=== PATIENT | male | born 1975 | race Caucasian/White ===

== ENCOUNTER 2017-12-23 07:00 | Inpatient (IN) | payer BC ==
[2017-12-23] MEDS ORDERED: hydrALAZINE 20 MG/ML VIAL. IVP (11:00)
[2017-12-23] MEDS ORDERED: DOCUSATE SODIUM 100 MG CAPSULE. PO (11:00)
[2017-12-23 11:46] LABS: ADD MAN DIFF? NO
[2017-12-23 11:49] LABS: BASO % 0 % (0-3); EOS % 0 % (0-3); HEMATOCRIT 43.7 % (39.0-53.0); HEMOGLOBIN 14.8 g/dL (13.0-17.5); LYMPH % 8 % (24-48); MEAN CORPUSCULAR HEMOGLOBIN 31 pg (25-35); MEAN CORPUSCULAR HGB CONC 34 g/dL (31-37); MEAN CORPUSCULAR VOLUME 91 fL (79-100); MONO # 0.8 x10^3/uL (0.0-1.1); MONO % 7 % (0-9); NEUT # 9.7 x10^3uL (1.8-7.7); NEUT % 84 % (31-73); PLATELET COUNT 341 x10^3/uL (140-400); RED BLOOD COUNT 4.78 x10^6/uL (4.30-5.70); RED CELL DISTRIBUTION WIDTH 13.9 % (11.5-14.5); WHITE BLOOD COUNT 11.5 x10^3/uL (4.0-11.0)
[2017-12-23 12:12] LABS: PROTHROMBIN TIME PATIENT 13.1 SEC (11.7-14.0)
[2017-12-23 12:27] LABS: ALBUMIN 3.4 g/dL (3.4-5.0); ALK PHOS 344 U/L (46-116); ALT (SGPT) 264 U/L (16-63); ANION GAP 7 (6-14); AST (SGOT) 146 U/L (15-37); BLOOD UREA NITROGEN 16 mg/dL (8-26); CALCIUM 8.5 mg/dL (8.5-10.1); CARBON DIOXIDE 29 mmol/L (21-32); CHLORIDE 105 mmol/L (98-107); CREATININE 1.1 mg/dL (0.7-1.3); DIRECT BILIRUBIN 1.5 mg/dL (0.0-0.2); GFR 73.4; GLUCOSE 131 mg/dL (70-99); POTASSIUM 3.9 mmol/L (3.5-5.1); SODIUM 141 mmol/L (136-145); TOTAL BILIRUBIN 1.9 mg/dL (0.2-1.0); TOTAL PROTEIN 7.7 g/dL (6.4-8.2)
[2017-12-23] MEDS: ONDANSETRON PF 4 MG/2 ML VIAL. IV (12:27)
[2017-12-23] MEDS: traMADol 50 MG TABLET PO (12:27)
[2017-12-23] MEDS ORDERED: PIP/TAZO PER PHARMACY MC (12:30)
[2017-12-23 13:07] LABS: LIPASE 10649 U/L (73-393)
[2017-12-23] MEDS: IV NORMAL SALINE 1000ML BAG 1,000 ML IV ×2 (14:02→22:26)
[2017-12-23] MEDS: PIPERACILLIN/TAZOBACTAM 4.5 GM in IV NORMAL SALINE 100ML 100 ML IV ×3 (14:11→22:26)
[2017-12-23] MEDS: PANTOPRAZOLE IV PUSH 40 MG VIAL. IVP (15:54)
[2017-12-23] MEDS: ENOXAPARIN 40 MG/0.4 ML SYRINGE. SQ (18:37)
[2017-12-23] MEDS ORDERED: FAMOTIDINE 20 MG/2 ML VIAL IVP (21:00)
[2017-12-23 22:01] LABS: BILIRUBIN,URINE SMALL (NEG); CLARITY,URINE CLEAR; COLOR,URINE AMBER; GLUCOSE,URINE NEGATIVE (NEG); NITRITE,URINE NEGATIVE (NEG); PH,URINE 5.5; PROTEIN,URINE NEGATIVE (NEG-TRACE)
[2017-12-23 22:11] LABS: BACTERIA,URINE FEW /HPF (0-FEW); RBC,URINE 0 /HPF (0-2); SQUAMOUS EPITHELIAL CELL,UR MOD /LPF; WBC,URINE 20-40 /HPF (0-4); YEAST,URINE PRESENT /HPF
[2017-12-23] MEDS: MORPHINE SULFATE 2 MG/ML DISP.SYRIN. IV (22:25)
[2017-12-24] MEDS: MORPHINE SULFATE 2 MG/ML DISP.SYRIN. IV ×5 (03:34→23:17)
[2017-12-24 05:11] LABS: ADD MAN DIFF? NO
[2017-12-24] MEDS: PIPERACILLIN/TAZOBACTAM 4.5 GM in IV NORMAL SALINE 100ML 100 ML IV ×4 (05:36→23:17)
[2017-12-24 05:41] LABS: BASO % 0 % (0-3); EOS % 0 % (0-3); HEMATOCRIT 39.3 % (39.0-53.0); HEMOGLOBIN 13.2 g/dL (13.0-17.5); LYMPH # 0.9 x10^3/uL (1.0-4.8); LYMPH % 8 % (24-48); MEAN CORPUSCULAR HEMOGLOBIN 31 pg (25-35); MEAN CORPUSCULAR HGB CONC 34 g/dL (31-37); MEAN CORPUSCULAR VOLUME 92 fL (79-100); MONO % 9 % (0-9); NEUT # 9.3 x10^3uL (1.8-7.7); NEUT % 83 % (31-73); PLATELET COUNT 275 x10^3/uL (140-400); RED BLOOD COUNT 4.28 x10^6/uL (4.30-5.70); RED CELL DISTRIBUTION WIDTH 14.2 % (11.5-14.5); WHITE BLOOD COUNT 11.2 x10^3/uL (4.0-11.0)
[2017-12-24 05:48] LABS: ANION GAP 6 (6-14); BLOOD UREA NITROGEN 13 mg/dL (8-26); CALCIUM 7.7 mg/dL (8.5-10.1); CARBON DIOXIDE 28 mmol/L (21-32); CHLORIDE 106 mmol/L (98-107); CREATININE 1.1 mg/dL (0.7-1.3); GFR 73.4; GLUCOSE 117 mg/dL (70-99); POTASSIUM 3.9 mmol/L (3.5-5.1); SODIUM 140 mmol/L (136-145)
[2017-12-24 06:18] LABS: ALBUMIN 2.9 g/dL (3.4-5.0); ALK PHOS 317 U/L (46-116); ALT (SGPT) 303 U/L (16-63); AST (SGOT) 164 U/L (15-37); DIRECT BILIRUBIN 1.2 mg/dL (0.0-0.2); LIPASE 3142 U/L (73-393); TOTAL BILIRUBIN 1.8 mg/dL (0.2-1.0); TOTAL PROTEIN 7.1 g/dL (6.4-8.2)
[2017-12-24] MEDS: PANTOPRAZOLE IV PUSH 40 MG VIAL. IVP (08:23)
[2017-12-24] MEDS: IV NORMAL SALINE 1000ML BAG 1,000 ML IV ×3 (10:28→21:05)
[2017-12-24] MEDS ORDERED: LACTULOSE 20 GM/30 ML SOLUTION. PO (12:15)
[2017-12-24] MEDS ORDERED: MAGNESIUM HYDROXIDE 2,400 MG/30 ML ORAL.SUSP. PO (12:15)
[2017-12-24] MEDS: ONDANSETRON PF 4 MG/2 ML VIAL. IV ×2 (16:28→23:07)
[2017-12-24] MEDS: ACETAMINOPHEN 325 MG TABLET. PO (16:29)
[2017-12-24] MEDS: ENOXAPARIN 40 MG/0.4 ML SYRINGE. SQ (16:30)
[2017-12-24] MEDS: traMADol 50 MG TABLET PO (23:17)
[2017-12-25] MEDS: IV NORMAL SALINE 1000ML BAG 1,000 ML IV ×4 (03:13→20:47)
[2017-12-25] MEDS: MORPHINE SULFATE 2 MG/ML DISP.SYRIN. IV ×4 (03:18→20:45)
[2017-12-25] MEDS: PIPERACILLIN/TAZOBACTAM 4.5 GM in IV NORMAL SALINE 100ML 100 ML IV ×3 (05:57→17:45)
[2017-12-25] MEDS: ONDANSETRON PF 4 MG/2 ML VIAL. IV ×4 (07:10→20:46)
[2017-12-25] MEDS: PANTOPRAZOLE IV PUSH 40 MG VIAL. IVP (07:45)
[2017-12-25 08:39] LABS: BASO % 0 % (0-3); EOS # 0.1 x10^3/uL (0.0-0.7); EOS % 0 % (0-3); HEMATOCRIT 40.3 % (39.0-53.0); HEMOGLOBIN 13.5 g/dL (13.0-17.5); LYMPH # 1.1 x10^3/uL (1.0-4.8); LYMPH % 6 % (24-48); MEAN CORPUSCULAR HEMOGLOBIN 31 pg (25-35); MEAN CORPUSCULAR HGB CONC 34 g/dL (31-37); MEAN CORPUSCULAR VOLUME 92 fL (79-100); MONO # 1.1 x10^3/uL (0.0-1.1); MONO % 7 % (0-9); NEUT # 15.2 x10^3uL (1.8-7.7); NEUT % 87 % (31-73); PLATELET COUNT 313 x10^3/uL (140-400); RED BLOOD COUNT 4.38 x10^6/uL (4.30-5.70); RED CELL DISTRIBUTION WIDTH 13.7 % (11.5-14.5); WHITE BLOOD COUNT 17.5 x10^3/uL (4.0-11.0)
[2017-12-25 08:49] LABS: ADD MAN DIFF? YES
[2017-12-25 09:08] LABS: ALBUMIN 2.7 g/dL (3.4-5.0); ALK PHOS 243 U/L (46-116); ALT (SGPT) 184 U/L (16-63); ANION GAP 11 (6-14); AST (SGOT) 47 U/L (15-37); BLOOD UREA NITROGEN 12 mg/dL (8-26); CALCIUM 7.9 mg/dL (8.5-10.1); CARBON DIOXIDE 23 mmol/L (21-32); CHLORIDE 105 mmol/L (98-107); DIRECT BILIRUBIN 0.5 mg/dL (0.0-0.2); GFR 81.9; GLUCOSE 136 mg/dL (70-99); LIPASE 212 U/L (73-393); POTASSIUM 3.7 mmol/L (3.5-5.1); SODIUM 139 mmol/L (136-145); TOTAL PROTEIN 7.3 g/dL (6.4-8.2)
[2017-12-25 09:33] LABS: % BANDS 2 % (0-9); % LYMPHS 8 % (24-48); % MONOS 4 % (0-10); % SEGS 86 % (35-66); PLT ESTIMATE ADEQUATE (ADEQUATE)
[2017-12-25] MEDS: traMADol 50 MG TABLET PO (10:09)
[2017-12-25] MEDS: BISACODYL 10 MG SUPP.RECT. PR (12:03)
[2017-12-25] MEDS: ENOXAPARIN 40 MG/0.4 ML SYRINGE. SQ (16:34)
[2017-12-26] MEDS: PIPERACILLIN/TAZOBACTAM 4.5 GM in IV NORMAL SALINE 100ML 100 ML IV ×5 (00:04→22:49)
[2017-12-26] MEDS: IV NORMAL SALINE 1000ML BAG 1,000 ML IV ×4 (00:04→22:49)
[2017-12-26] MEDS: MORPHINE SULFATE 2 MG/ML DISP.SYRIN. IV ×6 (00:07→21:33)
[2017-12-26] MEDS: ENOXAPARIN 40 MG/0.4 ML SYRINGE. SQ ×3 (00:56→21:29)
[2017-12-26] MEDS: PANTOPRAZOLE IV PUSH 40 MG VIAL. IVP (06:22)
[2017-12-26] MEDS: ONDANSETRON PF 4 MG/2 ML VIAL. IV ×2 (06:22→13:52)
[2017-12-26] MEDS: IOHEXOL 300 MG/ML 100ML VIAL. IV (07:45)
[2017-12-26] MEDS ORDERED: CONTRAST GIVEN. MC (07:45)
[2017-12-26 10:38] LABS: ADD MAN DIFF? NO
[2017-12-26 10:50] LABS: BASO % 0 % (0-3); EOS # 0.1 x10^3/uL (0.0-0.7); EOS % 1 % (0-3); HEMATOCRIT 39.1 % (39.0-53.0); HEMOGLOBIN 13.1 g/dL (13.0-17.5); LYMPH # 0.6 x10^3/uL (1.0-4.8); LYMPH % 4 % (24-48); MEAN CORPUSCULAR HEMOGLOBIN 31 pg (25-35); MEAN CORPUSCULAR HGB CONC 34 g/dL (31-37); MEAN CORPUSCULAR VOLUME 92 fL (79-100); MONO # 0.9 x10^3/uL (0.0-1.1); MONO % 6 % (0-9); NEUT # 13.7 x10^3uL (1.8-7.7); NEUT % 89 % (31-73); PLATELET COUNT 347 x10^3/uL (140-400); RED BLOOD COUNT 4.25 x10^6/uL (4.30-5.70); RED CELL DISTRIBUTION WIDTH 13.6 % (11.5-14.5); WHITE BLOOD COUNT 15.3 x10^3/uL (4.0-11.0)
[2017-12-26 12:40] LABS: LACTIC ACID 1.3 mmol/L (0.4-2.0)
[2017-12-26] MEDS: BISACODYL 10 MG SUPP.RECT. PR (13:55)
[2017-12-26] MEDS: SODIUM PHOSPHATES 19/7GM 133 ML ENEMA. PR (17:30)
[2017-12-26] MEDS ORDERED: METOCLOPRAMIDE HCL 10 MG/2 ML VIAL. IV (17:30)
[2017-12-26] MEDS: PROCHLORPERAZINE 10 MG/2 ML VIAL. IV (18:04)
[2017-12-27] MEDS: MORPHINE SULFATE 2 MG/ML DISP.SYRIN. IV ×4 (01:33→21:47)
[2017-12-27] MEDS: PROCHLORPERAZINE 10 MG/2 ML VIAL. IV ×2 (01:34→16:19)
[2017-12-27] MEDS: PIPERACILLIN/TAZOBACTAM 4.5 GM in IV NORMAL SALINE 100ML 100 ML IV ×4 (05:39→23:15)
[2017-12-27] MEDS: PANTOPRAZOLE IV PUSH 40 MG VIAL. IVP (05:40)
[2017-12-27] MEDS: IV NORMAL SALINE 1000ML BAG 1,000 ML IV (05:40)
[2017-12-27 08:07] LABS: ADD MAN DIFF? NO
[2017-12-27 08:32] LABS: ALBUMIN 2.2 g/dL (3.4-5.0); ALBUMIN/GLOBULIN RATIO 0.5 (1.0-1.7); ALK PHOS 162 U/L (46-116); ALT (SGPT) 82 U/L (16-63); ANION GAP 12 (6-14); AST (SGOT) 23 U/L (15-37); BLOOD UREA NITROGEN 9 mg/dL (8-26); BUN/CREATININE RATIO 10 (6-20); CALCIUM 7.9 mg/dL (8.5-10.1); CARBON DIOXIDE 25 mmol/L (21-32); CHLORIDE 105 mmol/L (98-107); CREATININE 0.9 mg/dL (0.7-1.3); GFR 92.5; GLUCOSE 104 mg/dL (70-99); LIPASE 86 U/L (73-393); POTASSIUM 3.1 mmol/L (3.5-5.1); SODIUM 142 mmol/L (136-145); TOTAL BILIRUBIN 0.7 mg/dL (0.2-1.0); TOTAL PROTEIN 6.5 g/dL (6.4-8.2)
[2017-12-27 08:38] LABS: BASO % 0 % (0-3); EOS # 0.1 x10^3/uL (0.0-0.7); EOS % 1 % (0-3); HEMATOCRIT 37.3 % (39.0-53.0); HEMOGLOBIN 12.4 g/dL (13.0-17.5); LYMPH # 0.7 x10^3/uL (1.0-4.8); LYMPH % 5 % (24-48); MEAN CORPUSCULAR HEMOGLOBIN 30 pg (25-35); MEAN CORPUSCULAR HGB CONC 33 g/dL (31-37); MEAN CORPUSCULAR VOLUME 92 fL (79-100); MONO % 7 % (0-9); NEUT % 87 % (31-73); PLATELET COUNT 321 x10^3/uL (140-400); RED BLOOD COUNT 4.07 x10^6/uL (4.30-5.70); RED CELL DISTRIBUTION WIDTH 13.6 % (11.5-14.5); WHITE BLOOD COUNT 13.8 x10^3/uL (4.0-11.0)
[2017-12-27] MEDS: ENOXAPARIN 40 MG/0.4 ML SYRINGE. SQ ×2 (09:18→19:47)
[2017-12-27] MEDS: AMINO AC 3%/ELECTROLYTE/GLYCER 1,000 ML IV (12:41)
[2017-12-27] MEDS: POTASSIUM CHLORIDE 10MEQ 100 ML IV ×4 (12:43→16:20)
[2017-12-28] MEDS: MORPHINE SULFATE 2 MG/ML DISP.SYRIN. IV ×5 (00:05→23:05)
[2017-12-28] MEDS: PROCHLORPERAZINE 10 MG/2 ML VIAL. IV ×2 (01:16→21:02)
[2017-12-28 05:12] LABS: ADD MAN DIFF? NO
[2017-12-28] MEDS: PIPERACILLIN/TAZOBACTAM 4.5 GM in IV NORMAL SALINE 100ML 100 ML IV ×4 (05:19→23:05)
[2017-12-28 05:21] LABS: BASO % 0 % (0-3); EOS # 0.1 x10^3/uL (0.0-0.7); EOS % 1 % (0-3); HEMATOCRIT 35.9 % (39.0-53.0); HEMOGLOBIN 12.3 g/dL (13.0-17.5); LYMPH # 0.9 x10^3/uL (1.0-4.8); LYMPH % 6 % (24-48); MEAN CORPUSCULAR HEMOGLOBIN 31 pg (25-35); MEAN CORPUSCULAR HGB CONC 34 g/dL (31-37); MEAN CORPUSCULAR VOLUME 90 fL (79-100); MONO # 1.1 x10^3/uL (0.0-1.1); MONO % 7 % (0-9); NEUT # 12.9 x10^3uL (1.8-7.7); NEUT % 86 % (31-73); PLATELET COUNT 306 x10^3/uL (140-400); RED BLOOD COUNT 3.99 x10^6/uL (4.30-5.70); RED CELL DISTRIBUTION WIDTH 13.3 % (11.5-14.5)
[2017-12-28 05:43] LABS: ALBUMIN 2.1 g/dL (3.4-5.0); ALBUMIN/GLOBULIN RATIO 0.5 (1.0-1.7); ALK PHOS 151 U/L (46-116); ALT (SGPT) 63 U/L (16-63); ANION GAP 9 (6-14); AST (SGOT) 19 U/L (15-37); BLOOD UREA NITROGEN 9 mg/dL (8-26); BUN/CREATININE RATIO 11 (6-20); CALCIUM 8.1 mg/dL (8.5-10.1); CARBON DIOXIDE 26 mmol/L (21-32); CHLORIDE 105 mmol/L (98-107); CREATININE 0.8 mg/dL (0.7-1.3); GLUCOSE 136 mg/dL (70-99); POTASSIUM 3.4 mmol/L (3.5-5.1); SODIUM 140 mmol/L (136-145); TOTAL BILIRUBIN 0.5 mg/dL (0.2-1.0); TOTAL PROTEIN 6.5 g/dL (6.4-8.2)
[2017-12-28] MEDS: ENOXAPARIN 40 MG/0.4 ML SYRINGE. SQ ×2 (09:37→20:59)
[2017-12-28] MEDS: PANTOPRAZOLE IV PUSH 40 MG VIAL. IVP (09:38)
[2017-12-28] MEDS: AMINO AC 3%/ELECTROLYTE/GLYCER 1,000 ML IV ×2 (09:38→20:59)
[2017-12-29] MEDS: MORPHINE SULFATE 2 MG/ML DISP.SYRIN. IV ×5 (02:16→20:50)
[2017-12-29 04:43] LABS: ADD MAN DIFF? NO
[2017-12-29 04:59] LABS: BASO # 0.1 x10^3/uL (0.0-0.2); BASO % 0 % (0-3); EOS # 0.1 x10^3/uL (0.0-0.7); EOS % 1 % (0-3); HEMATOCRIT 36.8 % (39.0-53.0); HEMOGLOBIN 12.8 g/dL (13.0-17.5); LYMPH # 1.1 x10^3/uL (1.0-4.8); LYMPH % 8 % (24-48); MEAN CORPUSCULAR HEMOGLOBIN 31 pg (25-35); MEAN CORPUSCULAR HGB CONC 35 g/dL (31-37); MEAN CORPUSCULAR VOLUME 90 fL (79-100); MONO # 1.2 x10^3/uL (0.0-1.1); MONO % 8 % (0-9); NEUT # 11.7 x10^3uL (1.8-7.7); NEUT % 83 % (31-73); PLATELET COUNT 304 x10^3/uL (140-400); RED CELL DISTRIBUTION WIDTH 13.1 % (11.5-14.5); WHITE BLOOD COUNT 14.2 x10^3/uL (4.0-11.0)
[2017-12-29 05:17] LABS: ALBUMIN 2.1 g/dL (3.4-5.0); ALBUMIN/GLOBULIN RATIO 0.5 (1.0-1.7); ALK PHOS 167 U/L (46-116); ALT (SGPT) 53 U/L (16-63); ANION GAP 10 (6-14); AST (SGOT) 23 U/L (15-37); BLOOD UREA NITROGEN 7 mg/dL (8-26); BUN/CREATININE RATIO 9 (6-20); CALCIUM 8.2 mg/dL (8.5-10.1); CARBON DIOXIDE 26 mmol/L (21-32); CHLORIDE 102 mmol/L (98-107); CREATININE 0.8 mg/dL (0.7-1.3); GLUCOSE 123 mg/dL (70-99); LIPASE 140 U/L (73-393); POTASSIUM 3.2 mmol/L (3.5-5.1); SODIUM 138 mmol/L (136-145); TOTAL BILIRUBIN 0.5 mg/dL (0.2-1.0); TOTAL PROTEIN 6.3 g/dL (6.4-8.2)
[2017-12-29] MEDS: PIPERACILLIN/TAZOBACTAM 4.5 GM in IV NORMAL SALINE 100ML 100 ML IV ×3 (05:39→18:40)
[2017-12-29] MEDS: PANTOPRAZOLE IV PUSH 40 MG VIAL. IVP (05:39)
[2017-12-29] MEDS ORDERED: LIDOCAINE WITH 8.4% SOD BICARB 3 ML DISP.SYRIN. (08:56)
[2017-12-29] MEDS: ENOXAPARIN 40 MG/0.4 ML SYRINGE. SQ ×2 (09:00→20:51)
[2017-12-29] MEDS: LIDOCAINE WITH 8.4% SOD BICARB 3 ML DISP.SYRIN. INJ (09:24)
[2017-12-29] MEDS: AMINO AC 3%/ELECTROLYTE/GLYCER 1,000 ML IV (13:14)
[2017-12-30] MEDS: MORPHINE SULFATE 2 MG/ML DISP.SYRIN. IV ×5 (00:16→20:48)
[2017-12-30] MEDS: PIPERACILLIN/TAZOBACTAM 4.5 GM in IV NORMAL SALINE 100ML 100 ML IV ×4 (00:16→19:40)
[2017-12-30] MEDS: AMINO AC 3%/ELECTROLYTE/GLYCER 1,000 ML IV (05:48)
[2017-12-30 06:31] LABS: ALBUMIN/GLOBULIN RATIO 0.5 (1.0-1.7); ALK PHOS 119 U/L (46-116); ALT (SGPT) 46 U/L (16-63); ANION GAP 8 (6-14); AST (SGOT) 26 U/L (15-37); BLOOD UREA NITROGEN 10 mg/dL (8-26); BUN/CREATININE RATIO 14 (6-20); CALCIUM 8.2 mg/dL (8.5-10.1); CARBON DIOXIDE 27 mmol/L (21-32); CHLORIDE 102 mmol/L (98-107); CREATININE 0.7 mg/dL (0.7-1.3); GFR 123.7; GLUCOSE 123 mg/dL (70-99); LIPASE 169 U/L (73-393); POTASSIUM 3.2 mmol/L (3.5-5.1); SODIUM 137 mmol/L (136-145); TOTAL BILIRUBIN 0.4 mg/dL (0.2-1.0)
[2017-12-30] MEDS: PANTOPRAZOLE IV PUSH 40 MG VIAL. IVP (08:13)
[2017-12-30] MEDS: ENOXAPARIN 40 MG/0.4 ML SYRINGE. SQ ×2 (08:14→20:24)
[2017-12-30 08:37] LABS: ADD MAN DIFF? NO; BASO % 0 % (0-3); EOS # 0.2 x10^3/uL (0.0-0.7); EOS % 2 % (0-3); HEMATOCRIT 36.1 % (39.0-53.0); HEMOGLOBIN 12.5 g/dL (13.0-17.5); LYMPH # 1.1 x10^3/uL (1.0-4.8); LYMPH % 9 % (24-48); MEAN CORPUSCULAR HEMOGLOBIN 31 pg (25-35); MEAN CORPUSCULAR HGB CONC 35 g/dL (31-37); MEAN CORPUSCULAR VOLUME 89 fL (79-100); MONO # 1.1 x10^3/uL (0.0-1.1); MONO % 10 % (0-9); NEUT # 9.4 x10^3uL (1.8-7.7); NEUT % 79 % (31-73); PLATELET COUNT 246 x10^3/uL (140-400); RED BLOOD COUNT 4.07 x10^6/uL (4.30-5.70); RED CELL DISTRIBUTION WIDTH 13.4 % (11.5-14.5); WHITE BLOOD COUNT 11.8 x10^3/uL (4.0-11.0)
[2017-12-31] MEDS: AMINO AC 3%/ELECTROLYTE/GLYCER 1,000 ML IV ×2 (00:05→17:59)
[2017-12-31] MEDS: PIPERACILLIN/TAZOBACTAM 4.5 GM in IV NORMAL SALINE 100ML 100 ML IV ×4 (00:08→17:58)
[2017-12-31] MEDS: MORPHINE SULFATE 2 MG/ML DISP.SYRIN. IV ×4 (00:18→22:43)
[2017-12-31 05:59] LABS: ADD MAN DIFF? NO
[2017-12-31 06:02] LABS: BASO # 0.1 x10^3/uL (0.0-0.2); BASO % 1 % (0-3); EOS # 0.2 x10^3/uL (0.0-0.7); EOS % 2 % (0-3); HEMATOCRIT 36.3 % (39.0-53.0); HEMOGLOBIN 12.4 g/dL (13.0-17.5); LYMPH # 1.4 x10^3/uL (1.0-4.8); LYMPH % 13 % (24-48); MEAN CORPUSCULAR HEMOGLOBIN 30 pg (25-35); MEAN CORPUSCULAR HGB CONC 34 g/dL (31-37); MEAN CORPUSCULAR VOLUME 89 fL (79-100); MONO # 1.2 x10^3/uL (0.0-1.1); MONO % 12 % (0-9); NEUT # 7.3 x10^3uL (1.8-7.7); NEUT % 72 % (31-73); PLATELET COUNT 219 x10^3/uL (140-400); RED BLOOD COUNT 4.08 x10^6/uL (4.30-5.70); RED CELL DISTRIBUTION WIDTH 13.3 % (11.5-14.5); WHITE BLOOD COUNT 10.1 x10^3/uL (4.0-11.0)
[2017-12-31 06:21] LABS: ALBUMIN 2.1 g/dL (3.4-5.0); ALBUMIN/GLOBULIN RATIO 0.5 (1.0-1.7); ALK PHOS 112 U/L (46-116); ALT (SGPT) 45 U/L (16-63); ANION GAP 6 (6-14); AST (SGOT) 32 U/L (15-37); BLOOD UREA NITROGEN 8 mg/dL (8-26); BUN/CREATININE RATIO 10 (6-20); CALCIUM 7.9 mg/dL (8.5-10.1); CARBON DIOXIDE 29 mmol/L (21-32); CHLORIDE 104 mmol/L (98-107); CREATININE 0.8 mg/dL (0.7-1.3); GLUCOSE 123 mg/dL (70-99); LIPASE 218 U/L (73-393); POTASSIUM 3.2 mmol/L (3.5-5.1); SODIUM 139 mmol/L (136-145); TOTAL BILIRUBIN 0.3 mg/dL (0.2-1.0); TOTAL PROTEIN 6.2 g/dL (6.4-8.2)
[2017-12-31] MEDS: ENOXAPARIN 40 MG/0.4 ML SYRINGE. SQ (09:25)
[2017-12-31] MEDS: PANTOPRAZOLE IV PUSH 40 MG VIAL. IVP (09:25)
[2018-01-01] MEDS: PIPERACILLIN/TAZOBACTAM 4.5 GM in IV NORMAL SALINE 100ML 100 ML IV ×4 (00:39→21:32)
[2018-01-01 06:48] LABS: ADD MAN DIFF? NO
[2018-01-01 07:15] LABS: ALBUMIN 2.2 g/dL (3.4-5.0); ALBUMIN/GLOBULIN RATIO 0.5 (1.0-1.7); ALK PHOS 97 U/L (46-116); ALT (SGPT) 51 U/L (16-63); ANION GAP 7 (6-14); AST (SGOT) 33 U/L (15-37); BLOOD UREA NITROGEN 6 mg/dL (8-26); BUN/CREATININE RATIO 8 (6-20); CALCIUM 7.8 mg/dL (8.5-10.1); CARBON DIOXIDE 28 mmol/L (21-32); CHLORIDE 105 mmol/L (98-107); CREATININE 0.8 mg/dL (0.7-1.3); GLUCOSE 138 mg/dL (70-99); LIPASE 231 U/L (73-393); POTASSIUM 3.2 mmol/L (3.5-5.1); SODIUM 140 mmol/L (136-145); TOTAL BILIRUBIN 0.3 mg/dL (0.2-1.0); TOTAL PROTEIN 6.4 g/dL (6.4-8.2)
[2018-01-01 07:41] LABS: BASO # 0.1 x10^3/uL (0.0-0.2); BASO % 1 % (0-3); EOS # 0.3 x10^3/uL (0.0-0.7); EOS % 3 % (0-3); HEMATOCRIT 36.3 % (39.0-53.0); HEMOGLOBIN 12.5 g/dL (13.0-17.5); LYMPH % 11 % (24-48); MEAN CORPUSCULAR HEMOGLOBIN 31 pg (25-35); MEAN CORPUSCULAR HGB CONC 34 g/dL (31-37); MEAN CORPUSCULAR VOLUME 90 fL (79-100); MONO # 1.2 x10^3/uL (0.0-1.1); MONO % 13 % (0-9); NEUT # 6.7 x10^3uL (1.8-7.7); NEUT % 72 % (31-73); PLATELET COUNT 230 x10^3/uL (140-400); RED BLOOD COUNT 4.05 x10^6/uL (4.30-5.70); RED CELL DISTRIBUTION WIDTH 13.4 % (11.5-14.5); WHITE BLOOD COUNT 9.2 x10^3/uL (4.0-11.0)
[2018-01-01] MEDS: PANTOPRAZOLE IV PUSH 40 MG VIAL. IVP (07:45)
[2018-01-01] MEDS: IOHEXOL 300 MG/ML 100ML VIAL. IV (11:30)
[2018-01-01] MEDS ORDERED: CONTRAST GIVEN. MC (11:45)
[2018-01-01] MEDS: POTASSIUM CHLORIDE 20MEQ 50 ML IV (12:01)
[2018-01-01] MEDS: ENOXAPARIN 40 MG/0.4 ML SYRINGE. SQ (12:01)
[2018-01-01] MEDS: AMINO AC 3%/ELECTROLYTE/GLYCER 1,000 ML IV (19:14)
[2018-01-02] MEDS: ALTEPLASE 2 MG VIAL INT CAT (00:34)
[2018-01-02] MEDS: PIPERACILLIN/TAZOBACTAM 4.5 GM in IV NORMAL SALINE 100ML 100 ML IV ×4 (01:28→20:08)
[2018-01-02] MEDS: AMINO AC 3%/ELECTROLYTE/GLYCER 1,000 ML IV ×2 (01:30→16:01)
[2018-01-02] MEDS: MORPHINE SULFATE 2 MG/ML DISP.SYRIN. IV ×2 (02:48→16:34)
[2018-01-02 05:28] LABS: ADD MAN DIFF? NO
[2018-01-02 05:49] LABS: ALBUMIN 2.1 g/dL (3.4-5.0); ALBUMIN/GLOBULIN RATIO 0.5 (1.0-1.7); ALK PHOS 95 U/L (46-116); ALT (SGPT) 49 U/L (16-63); ANION GAP 6 (6-14); AST (SGOT) 32 U/L (15-37); BLOOD UREA NITROGEN 7 mg/dL (8-26); BUN/CREATININE RATIO 9 (6-20); CALCIUM 8.1 mg/dL (8.5-10.1); CARBON DIOXIDE 28 mmol/L (21-32); CHLORIDE 106 mmol/L (98-107); CREATININE 0.8 mg/dL (0.7-1.3); GLUCOSE 121 mg/dL (70-99); LIPASE 268 U/L (73-393); POTASSIUM 3.3 mmol/L (3.5-5.1); SODIUM 140 mmol/L (136-145); TOTAL BILIRUBIN 0.3 mg/dL (0.2-1.0); TOTAL PROTEIN 6.2 g/dL (6.4-8.2)
[2018-01-02 06:06] LABS: BASO % 1 % (0-3); EOS # 0.2 x10^3/uL (0.0-0.7); EOS % 3 % (0-3); HEMATOCRIT 35.5 % (39.0-53.0); HEMOGLOBIN 12.2 g/dL (13.0-17.5); LYMPH # 1.1 x10^3/uL (1.0-4.8); LYMPH % 13 % (24-48); MEAN CORPUSCULAR HEMOGLOBIN 31 pg (25-35); MEAN CORPUSCULAR HGB CONC 35 g/dL (31-37); MEAN CORPUSCULAR VOLUME 89 fL (79-100); MONO # 1.1 x10^3/uL (0.0-1.1); MONO % 14 % (0-9); NEUT # 5.8 x10^3uL (1.8-7.7); NEUT % 70 % (31-73); PLATELET COUNT 203 x10^3/uL (140-400); RED BLOOD COUNT 3.99 x10^6/uL (4.30-5.70); RED CELL DISTRIBUTION WIDTH 13.2 % (11.5-14.5); WHITE BLOOD COUNT 8.3 x10^3/uL (4.0-11.0)
[2018-01-02] MEDS: ENOXAPARIN 40 MG/0.4 ML SYRINGE. SQ (09:00)
[2018-01-02] MEDS: PANTOPRAZOLE IV PUSH 40 MG VIAL. IVP (11:03)
[2018-01-02] MEDS: POTASSIUM CHLORIDE 20MEQ 50 ML IV (11:03)
[2018-01-02 11:07] LABS: MAGNESIUM 2.1 mg/dL (1.8-2.4)
[2018-01-03] MEDS: PIPERACILLIN/TAZOBACTAM 4.5 GM in IV NORMAL SALINE 100ML 100 ML IV ×4 (00:05→18:11)
[2018-01-03] MEDS: AMINO AC 3%/ELECTROLYTE/GLYCER 1,000 ML IV ×2 (05:36→17:01)
[2018-01-03 06:03] LABS: ADD MAN DIFF? NO
[2018-01-03 06:26] LABS: BASO % 1 % (0-3); EOS # 0.3 x10^3/uL (0.0-0.7); EOS % 4 % (0-3); HEMATOCRIT 36.9 % (39.0-53.0); HEMOGLOBIN 12.6 g/dL (13.0-17.5); LYMPH # 1.2 x10^3/uL (1.0-4.8); LYMPH % 15 % (24-48); MEAN CORPUSCULAR HEMOGLOBIN 31 pg (25-35); MEAN CORPUSCULAR HGB CONC 34 g/dL (31-37); MEAN CORPUSCULAR VOLUME 90 fL (79-100); MONO # 1.2 x10^3/uL (0.0-1.1); MONO % 15 % (0-9); NEUT # 5.5 x10^3uL (1.8-7.7); NEUT % 67 % (31-73); PLATELET COUNT 200 x10^3/uL (140-400); RED BLOOD COUNT 4.12 x10^6/uL (4.30-5.70); RED CELL DISTRIBUTION WIDTH 13.1 % (11.5-14.5); WHITE BLOOD COUNT 8.3 x10^3/uL (4.0-11.0)
[2018-01-03 06:28] LABS: ALBUMIN 2.3 g/dL (3.4-5.0); ALBUMIN/GLOBULIN RATIO 0.5 (1.0-1.7); ALK PHOS 91 U/L (46-116); ALT (SGPT) 45 U/L (16-63); ANION GAP 8 (6-14); AST (SGOT) 25 U/L (15-37); BLOOD UREA NITROGEN 7 mg/dL (8-26); BUN/CREATININE RATIO 9 (6-20); CALCIUM 7.9 mg/dL (8.5-10.1); CARBON DIOXIDE 27 mmol/L (21-32); CHLORIDE 106 mmol/L (98-107); CREATININE 0.8 mg/dL (0.7-1.3); GLUCOSE 129 mg/dL (70-99); POTASSIUM 3.8 mmol/L (3.5-5.1); SODIUM 141 mmol/L (136-145); TOTAL BILIRUBIN 0.3 mg/dL (0.2-1.0); TOTAL PROTEIN 6.5 g/dL (6.4-8.2)
[2018-01-03] MEDS ORDERED: fentaNYL PF VIAL 100 MCG/2 ML VIAL IV (07:00)
[2018-01-03] MEDS ORDERED: LIDOCAINE 2% PF Vial for OR 5 ML VIAL. (07:00)
[2018-01-03] MEDS ORDERED: MIDAZOLAM HCL/PF 2 MG/2 ML VIAL. (07:00)
[2018-01-03] MEDS: IV RINGERS,LACTATED 1000ML 1,000 ML IV (07:00)
[2018-01-03] MEDS ORDERED: MORPHINE SULFATE 2 MG/ML DISP.SYRIN. IV (07:00)
[2018-01-03] MEDS ORDERED: ONDANSETRON PF 4 MG/2 ML VIAL. IV (07:00)
[2018-01-03] MEDS ORDERED: LIDOCAINE 1% PF 2 ML VIAL. ID (07:00)
[2018-01-03] MEDS ORDERED: fentaNYL PF VIAL 250 MCG/5 ML VIAL (07:00)
[2018-01-03] MEDS ORDERED: PROCHLORPERAZINE 10 MG/2 ML VIAL. IV (07:00)
[2018-01-03] MEDS ORDERED: PROPOFOL 20 ML IV (07:00)
[2018-01-03] MEDS ORDERED: ROCURONIUM 50 MG/5 ML VIAL. (07:00)
[2018-01-03] MEDS: PANTOPRAZOLE IV PUSH 40 MG VIAL. IVP (07:30)
[2018-01-03] MEDS: IOHEXOL 300 MG/ML 100ML VIAL. (07:58)
[2018-01-03] MEDS: BUPIVACAINE-EPI 0.5%-1:200000 50 ML VIAL. (07:58)
[2018-01-03] MEDS ORDERED: ONDANSETRON PF 4 MG/2 ML VIAL. (08:03)
[2018-01-03] MEDS ORDERED: DEXAMETHASONE SOD PHOS 20 MG/5 ML VIAL. (08:03)
[2018-01-03] MEDS ORDERED: NEOSTIGMINE METHYLSULFATE 5 MG/5 ML SYRINGE. (08:37)
[2018-01-03] MEDS ORDERED: GLYCOPYRROLATE 1 MG/5 ML VIAL. (08:38)
[2018-01-03] MEDS: SURGICEL HEMOSTAT 4X8 EACH. (08:41)
[2018-01-03] MEDS: ENOXAPARIN 40 MG/0.4 ML SYRINGE. SQ (09:00)
[2018-01-03] MEDS: fentaNYL PF VIAL 100 MCG/2 ML VIAL IV (09:53)
[2018-01-03] MEDS: oxyCODONE/APAP 5/325 1 TAB TABLET PO ×2 (11:43→21:32)
[2018-01-03] MEDS: MORPHINE SULFATE 2 MG/ML DISP.SYRIN. IV (15:38)
[2018-01-04] MEDS: PIPERACILLIN/TAZOBACTAM 4.5 GM in IV NORMAL SALINE 100ML 100 ML IV ×2 (00:18→06:03)
[2018-01-04] MEDS: PANTOPRAZOLE IV PUSH 40 MG VIAL. IVP (06:04)
[2018-01-04] MEDS: oxyCODONE/APAP 5/325 1 TAB TABLET PO ×2 (06:04→12:57)
[2018-01-04] MEDS: ALTEPLASE 2 MG VIAL INT CAT (07:17)
[2018-01-04 09:36] LABS: ADD MAN DIFF? NO
[2018-01-04 09:40] LABS: BASO # 0.1 x10^3/uL (0.0-0.2); BASO % 1 % (0-3); EOS # 0.2 x10^3/uL (0.0-0.7); EOS % 2 % (0-3); HEMATOCRIT 36.3 % (39.0-53.0); HEMOGLOBIN 12.3 g/dL (13.0-17.5); LYMPH # 1.9 x10^3/uL (1.0-4.8); LYMPH % 20 % (24-48); MEAN CORPUSCULAR HEMOGLOBIN 31 pg (25-35); MEAN CORPUSCULAR HGB CONC 34 g/dL (31-37); MEAN CORPUSCULAR VOLUME 91 fL (79-100); MONO # 0.9 x10^3/uL (0.0-1.1); MONO % 10 % (0-9); NEUT # 6.2 x10^3uL (1.8-7.7); NEUT % 67 % (31-73); PLATELET COUNT 228 x10^3/uL (140-400); RED BLOOD COUNT 3.97 x10^6/uL (4.30-5.70); RED CELL DISTRIBUTION WIDTH 13.3 % (11.5-14.5); WHITE BLOOD COUNT 9.2 x10^3/uL (4.0-11.0)
[2018-01-04 10:12] LABS: ALBUMIN 2.4 g/dL (3.4-5.0); ALBUMIN/GLOBULIN RATIO 0.6 (1.0-1.7); ALK PHOS 93 U/L (46-116); ALT (SGPT) 57 U/L (16-63); ANION GAP 8 (6-14); AST (SGOT) 39 U/L (15-37); BLOOD UREA NITROGEN 8 mg/dL (8-26); BUN/CREATININE RATIO 9 (6-20); CALCIUM 7.9 mg/dL (8.5-10.1); CARBON DIOXIDE 26 mmol/L (21-32); CHLORIDE 106 mmol/L (98-107); CREATININE 0.9 mg/dL (0.7-1.3); GFR 92.5; GLUCOSE 143 mg/dL (70-99); POTASSIUM 3.5 mmol/L (3.5-5.1); SODIUM 140 mmol/L (136-145); TOTAL BILIRUBIN 0.3 mg/dL (0.2-1.0); TOTAL PROTEIN 6.1 g/dL (6.4-8.2)
[2018-01-04] MEDS ORDERED: LACTOBACILLUS RHAMNOSUS GG 1 CAPSULE. PO (21:00)
[2018-01-05] MEDS ORDERED: PANTOPRAZOLE 40 MG TABLET.DR. PO (07:30)
== END 2018-01-04 13:25 | disposition home or self-care (01) | DRG 987 ==
LOC: 6 SOUTH 12-30 14:45 → 4 NORTH 07:00
PROC: 0FT44ZZ Resection of Gallbladder, Percutaneous Endoscopic Approach (ICD-10-PCS; principal; 2018-01-03 07:30)
PROC: 02HV33Z Insertion of Infusion Device into Superior Vena Cava, Percutaneous Approach (ICD-10-PCS; 2018-01-03 07:30)
PROC: B548ZZA Ultrasonography of Superior Vena Cava, Guidance (ICD-10-PCS; 2018-01-03 07:30)
PROC: BF131ZZ Fluoroscopy of Gallbladder and Bile Ducts using Low Osmolar Contrast (ICD-10-PCS; 2018-01-03 07:30)
DX: T82.515A Breakdown (mechanical) of umbrella device, initial encounter (principal); K85.10 Biliary acute pancreatitis without necrosis or infection; K56.7 Ileus, unspecified; E66.01 Morbid (severe) obesity due to excess calories; Z68.38 Body mass index [BMI] 38.0-38.9, adult; E87.6 Hypokalemia; K21.9 Gastro-esophageal reflux disease without esophagitis; K42.9 Umbilical hernia without obstruction or gangrene; K80.20 Calculus of gallbladder without cholecystitis without obstruction; L89.90 Pressure ulcer of unspecified site, unspecified stage; Z74.01 Bed confinement status; Z82.49 Family history of ischemic heart disease and other diseases of the circulatory system; Z86.718 Personal history of other venous thrombosis and embolism; G83.9 Paralytic syndrome, unspecified; Y83.8 Other surgical procedures as the cause of abnormal reaction of the patient, or of later complication, without mention of misadventure at the time of the procedure; Y92.89 Other specified places as the place of occurrence of the external cause
CPT/HCPCS: 36415; 36569; 71045; 74177; 74300; 76937; 77001; 80048; 80053; 80076; 81001; 83605; 83690; 83735; 85007; 85025; 85610; 87086; 88304; A7015; C1751; C1892; C9113; J0780; J1100; J1650; J2001; J2250; J2270; J2405; J2543; J2704; J2710; J2997; J3010; J3480; J3490; J7030; Q9967

== ENCOUNTER 2020-12-29 17:53 | Inpatient (IN) | payer BC ==
[~2020-12-29] VITALS: Ht 171.4 cm; Wt 122.5 kg
--- NOTE | 2020-12-29 17:00 | NUR ---
Wound/Ostomy Care Wound Type/Assessment: New pt was seen in outpatient wound care clinic for right buttock/ischial PU unstageable, periwound is indurated, draining, red and with foul smell, pt also c/o fevers. Upon evaluation Dr. Castellanos recommended admission to hospital for eval and treat and consults to general surgery and ID. Pt agreeable to plan and was sent to ED for admission. Pictures and measures sent with pt along with wound care instructions. Treatment Recommendations/Plan: cleanse wound, pack with dakins soaked gauze and cover with abd and tape, change daily and prn. Awaiting on general surgery consult for other wound care plans. Education provided: pt educated on PU offloading, turn q2h right to left only, sitting on laying on back only for meals. Offloading surface/device: purple wedge and P500 bed recommended Recommended Referrals/Tests: general surgery, ID Discharge Recommendations for dressings: will re-evaluate on 12/31/2020
[~2020-12-29 17:53] MED LIST changes: -MERO500V24 IV
[2020-12-29 19:00] VITALS: BP 116/69
[2020-12-29] MEDS ORDERED: PIP/TAZO PER PHARMACY MC PRN (21:30)
[2020-12-29] MEDS ORDERED: SODIUM HYPOCHLORITE 0.125% 473 ML BOTTLE. TP SCH (22:00)
[2020-12-29 22:09] LABS: BILIRUBIN,URINE NEGATIVE (NEG); CLARITY,URINE CLEAR; COLOR,URINE AMBER; NITRITE,URINE NEGATIVE (NEG); PROTEIN,URINE 30 mg/dL (NEG-TRACE)
[2020-12-29 22:16] LABS: BACTERIA,URINE 0 /HPF (0-FEW); RBC,URINE 0 /HPF (0-2)
[2020-12-29] MEDS: ACETAMINOPHEN 325 MG TABLET. PO PRN (22:17)
[2020-12-29] MEDS: IV NORMAL SALINE 1000ML BAG 1,000 ML IV SCH (22:18)
[2020-12-29] MEDS ORDERED: PIPERACILLIN/TAZOBACTAM 3.375 GM in IV NORMAL SALINE 50ML 50 ML IV SCH (22:30)
--- NOTE | 2020-12-29 23:00 | NUR ---
The patient, TRINIDAD ORTIZ, 45 y/o, M admitted by ALEXUS MCKEON MD, was given written information regarding hospital policies, unit procedures and contact persons. Valuables were checked and patient oriented to room. Call light within reach.
[2020-12-29] MEDS: PIPERACILLIN/TAZOBACTAM 3.375 GM in IV NORMAL SALINE 50ML 50 ML IV SCH (23:21)
[2020-12-29 23:29] VITALS: BP 112/60
[2020-12-30 02:59] VITALS: BP 125/77
[2020-12-30 05:20] LABS: BASO # 0.1 x10^3/uL (0.0-0.2); BASO % 1 % (0-3); EOS # 0.1 x10^3/uL (0.0-0.7); EOS % 1 % (0-3); HEMOGLOBIN 11.1 g/dL (13.0-17.5); LYMPH % 19 % (24-48); MEAN CORPUSCULAR HEMOGLOBIN 27 pg (25-35); MEAN CORPUSCULAR HGB CONC 32 g/dL (31-37); MEAN CORPUSCULAR VOLUME 85 fL (79-100); MONO # 1.3 x10^3/uL (0.0-1.1); MONO % 13 % (0-9); NEUT % 67 % (31-73); PLATELET COUNT 506 x10^3/uL (140-400); RED BLOOD COUNT 4.11 x10^6/uL (4.30-5.70); RED CELL DISTRIBUTION WIDTH 15.5 % (11.5-14.5); WHITE BLOOD COUNT 10.6 x10^3/uL (4.0-11.0)
[2020-12-30 05:31] LABS: PROTHROMBIN TIME PATIENT 14.8 SEC (11.7-14.0)
[2020-12-30 05:48] LABS: CALCIUM 8.8 mg/dL (8.5-10.1); CREATININE 0.9 mg/dL (0.7-1.3); GFR 91.3; POTASSIUM 4.2 mmol/L (3.5-5.1)
[2020-12-30] MEDS: PIPERACILLIN/TAZOBACTAM 3.375 GM in IV NORMAL SALINE 50ML 50 ML IV SCH ×3 (06:02→17:48)
[2020-12-30 07:00] VITALS: BP 102/65
--- NOTE | 2020-12-30 10:32 | NUR ---
SW following. Discussed with RN, pt from home, room air, NPO, rapid COVID-19 negative. Surgery, wound care and ID consulted. RN advised no SW needs at this time. SW will continue to follow.
--- NOTE | 2020-12-30 12:02 | RAD ---
EXAM: Pelvis CT without contrast. HISTORY: Nonhealing wound. TECHNIQUE: Computed tomographic images of the pelvis were obtained without contrast. *One or more of the following individualized dose reduction techniques were utilized for this examina tion: 1. Automated exposure control. 2. Adjustment of the mA and/or kV according to patient size. 3. Use of iterative reconstruction technique. COMPARISON: 01/01/2018. FINDINGS: There is soft tissue stranding and gas within the posterior medial right buttock which exte nds to the level of the right ischial tuberosity and into the right perineum. There is an overlying s kin defect within the inferior medial right buttock with overlying bandage material. No drainable flu id collection/abscess is seen. There is no involvement of the rectum or anus. There is a Jackson cathet er in expected position. There is asymmetric enlargement of right iliac chain and inguinal lymph node s, possibly reactive in etiology. The bladder is decompressed. There is heterotopic ossification and increased soft tissue density within the lateral right hip which is likely related to the sequela of remote trauma, trochanteric bursitis or surgery. There is internal fixation of the left femur, partia lly included on the [id number]. There is mild bilateral hip osteoarthritis. There is mild lumbar s coliosis. There are disc bulges with endplate remodeling and facet arthropathy at the visualized lowe r lumbar levels. IMPRESSION: 1. Soft tissue stranding and gas within the posterior medial right buttock extending to the ischial t uberosity and right perineum and a skin defect within the inferior medial buttock. Correlate for rece nt debridement in this location or cellulitis and a superimposed gas forming infectious etiology. No drainable fluid collection/abscess is seen. There is no convincing CT evidence of osteomyelitis. Note is made that MRI is more sensitive for osteomyelitis. 2. Suspected reactive right iliac chain and inguinal lymphadenopathy. 3. Mild bilateral hip osteoarthritis and degenerative change involving the lumbar spine 4. Jackson catheter within a decompressed bladder. 5. Heterotopic ossification and scarring within the lateral right hip, possibly due to the sequela of remote injury, trochanteric bursitis or prior surgery. Electronically signed by: Noemí Giordano MD (12/30/2020 12:00 PM) [id number]
[2020-12-30] MEDS: IV NORMAL SALINE 1000ML BAG 1,000 ML IV SCH (12:08)
[2020-12-30] MEDS: DAPTOmycin (GENERIC) IVPB 540 MG in IV NORMAL SALINE 50ML 50 ML IV SCH (12:09)
[2020-12-30] MEDS: ACETAMINOPHEN 325 MG TABLET. PO PRN ×2 (12:16→17:47)
[2020-12-30 15:00] VITALS: BP 120/63
--- NOTE | 2020-12-30 17:31 | PDOC2 ---
CONSULT Date of Consult Date of Consult DATE: 12/30/20 TIME: 17:22 Reason for Consult Reason for Consult: Right buttock wound Referring Physician Referring Physician: Heike Identification/Chief Complaint Chief Complaint Enlarging buttock wound Source Source: Patient History of Present Illness Reason for Visit: 45 yo male paraplegic who has been dealing with a right buttock ulcer and had it down to about the size of a nickel when he developed pneumonia and could not take care of the area like he had been. It has gotten larger since. Denies any drainage. Past Medical History Cardiovascular: No pertinent hx Pulmonary: No pertinent hx CENTRAL NERVOUS SYSTEM: Other (paralysis) GI: No pertinent hx Heme/Onc: No pertinent hx Hepatobiliary: No pertinent hx Psych: No pertinent hx Rheumatologic: No pertinent hx Infectious disease: No pertinent hx ENT: No pertinent hx Renal/: No pertinent hx Endocrine: No pertinent hx Dermatology: No pertinent hx Past Surgical History Past Surgical History: Hernia Repair, Other, No pertinent history Social History ALCOHOL: none Drugs: None Current Medications Current Medications Current Medications Acetaminophen (Tylenol) 650 mg PRN Q6HRS PRN PO Headaches, Temp > 101.5F Last administered on 12/30/20at 12:16; Start 12/29/20 at 21:30 Sodium Chloride 1,000 ml @ 75 mls/hr [id number] IV Last administered on 12/30/20at 12:08; Start 12/29/20 at 21:30 Piperacillin Sod/ Tazobactam Sod (Zosyn Per Pharmacy) 1 each PRN DAILY PRN MC SEE COMMENTS; Start 12/29/20 at 21:30 Piperacillin Sod/ Tazobactam Sod 3.375 gm/Sodium Chloride 50 ml @ 100 mls/hr Q6HRS IV ; Start 12/29/20 at 22:30; Stop 12/29/20 at 22:02; Status DC Sodium Hypochlorite (Dakin'S 1/4 Strength) 1 jacob PRN DAILY TP ; Start 12/29/20 at 22:00 Piperacillin Sod/ Tazobactam Sod 3.375 gm/Sodium Chloride 50 ml @ 100 mls/hr Q6HRS IV Last administered on 12/30/20at 13:33; Start 12/30/20 at 00:00 Daptomycin 540 mg/ Sodium Chloride 50 ml @ 100 mls/hr Q24H IV Last administered on 12/30/20at 12:09; Start 12/30/20 at 11:00 Active Scripts Active Oxycodone-Acetaminophen 5-325 (Oxycodone Hcl/Acetaminophen) 1 Each Tablet 1 Tab PO PRN Q4HRS PRN Allergies Allergies: Coded Allergies: No Known Drug Allergies (Unverified , 01/03/18) Physical Exam General: Alert, Oriented X3, Cooperative, No acute distress HEENT: Atraumatic, EOMI Lungs: Clear to auscultation, Normal air movement Heart: Regular rate, No murmurs Abdomen: Normal bowel sounds, Soft, No tenderness Extremities: Other (Large decubitus ulcer right buttock no odor superficial necrosis ) Vitals VITALS Vital Signs Date Time Temp Pulse Resp B/P (MAP) Pulse Ox O2 Delivery O2 Flow Rate FiO2 12/30/20 15:00 98.3 78 18 120/63 (82) 94 Room Air 98.3 Labs Labs Laboratory Tests Test 12/29/20 22:00 12/29/20 23:20 12/30/20 04:25 12/30/20 10:55 Urine Collection Type Unknown Urine Color Tawanna Urine Clarity Clear Urine pH 6.0 (<5.0-8.0) Urine Specific [place] >=1.030 (1.000-1.030) Urine Protein 30 mg/dL (NEG-TRACE) Urine Glucose (UA) Negative mg/dL (NEG) Urine Ketones (Stick) Trace mg/dL (NEG) Urine Blood Negative (NEG) Urine Nitrite Negative (NEG) Urine Bilirubin Negative (NEG) Urine Urobilinogen Dipstick 1.0 mg/dL (0.2 mg/dL) Urine Leukocyte Esterase Small (NEG) Urine RBC 0 /HPF (0-2) Urine WBC 5-10 /HPF (0-4) Urine Squamous Epithelial Cells Many /LPF Urine Bacteria 0 /HPF (0-FEW) Urine Mucus Marked /LPF SARS-CoV-2 RNA (CAROLANN) Negative (Negative) SARS-CoV-2 Antigen (Rapid) Negative (NEGATIVE) White Blood Count 10.6 x10^3/uL (4.0-11.0) Red Blood Count 4.11 x10^6/uL (4.30-5.70) Hemoglobin 11.1 g/dL (13.0-17.5) Hematocrit 35.0 % (39.0-53.0) Mean Corpuscular Volume 85 fL (79-100) Mean Corpuscular Hemoglobin 27 pg (25-35) Mean Corpuscular Hemoglobin Concent 32 g/dL (31-37) Red Cell Distribution Width 15.5 % (11.5-14.5) Platelet Count 506 x10^3/uL (140-400) Neutrophils (%) (Auto) 67 % (31-73) Lymphocytes (%) (Auto) 19 % (24-48) Monocytes (%) (Auto) 13 % (0-9) Eosinophils (%) (Auto) 1 % (0-3) Basophils (%) (Auto) 1 % (0-3) Neutrophils # (Auto) 7.0 x10^3/uL (1.8-7.7) Lymphocytes # (Auto) 2.0 x10^3/uL (1.0-4.8) Monocytes # (Auto) 1.3 x10^3/uL (0.0-1.1) Eosinophils # (Auto) 0.1 x10^3/uL (0.0-0.7) Basophils # (Auto) 0.1 x10^3/uL (0.0-0.2) Prothrombin Time 14.8 SEC (11.7-14.0) Prothromb Time International Ratio 1.2 (0.8-1.1) Sodium Level 137 mmol/L (136-145) Potassium Level 4.2 mmol/L (3.5-5.1) Chloride Level 103 mmol/L (98-107) Carbon Dioxide Level 28 mmol/L (21-32) Anion Gap 6 (6-14) Blood Urea Nitrogen 10 mg/dL (8-26) Creatinine 0.9 mg/dL (0.7-1.3) Estimated GFR (Cockcroft-Gault) 91.3 Glucose Level 116 mg/dL (70-99) Calcium Level 8.8 mg/dL (8.5-10.1) Erythrocyte Sedimentation Rate 109 (0-15) C-Reactive Protein, Quantitative 201.6 mg/L (0-3.3) Laboratory Tests Test 12/29/20 22:00 12/29/20 23:20 12/30/20 04:25 12/30/20 10:55 Urine Collection Type Unknown Urine Color Tawanna Urine Clarity Clear Urine pH 6.0 (<5.0-8.0) Urine Specific [place] >=1.030 (1.000-1.030) Urine Protein 30 mg/dL (NEG-TRACE) Urine Glucose (UA) Negative mg/dL (NEG) Urine Ketones (Stick) Trace mg/dL (NEG) Urine Blood Negative (NEG) Urine Nitrite Negative (NEG) Urine Bilirubin Negative (NEG) Urine Urobilinogen Dipstick 1.0 mg/dL (0.2 mg/dL) Urine Leukocyte Esterase Small (NEG) Urine RBC 0 /HPF (0-2) Urine WBC 5-10 /HPF (0-4) Urine Squamous Epithelial Cells Many /LPF Urine Bacteria 0 /HPF (0-FEW) Urine Mucus Marked /LPF SARS-CoV-2 RNA (CAROLANN) Negative (Negative) SARS-CoV-2 Antigen (Rapid) Negative (NEGATIVE) White Blood Count 10.6 x10^3/uL (4.0-11.0) Red Blood Count 4.11 x10^6/uL (4.30-5.70) Hemoglobin 11.1 g/dL (13.0-17.5) Hematocrit 35.0 % (39.0-53.0) Mean Corpuscular Volume 85 fL (79-100) Mean Corpuscular Hemoglobin 27 pg (25-35) Mean Corpuscular Hemoglobin Concent 32 g/dL (31-37) Red Cell Distribution Width 15.5 % (11.5-14.5) Platelet Count 506 x10^3/uL (140-400) Neutrophils (%) (Auto) 67 % (31-73) Lymphocytes (%) (Auto) 19 % (24-48) Monocytes (%) (Auto) 13 % (0-9) Eosinophils (%) (Auto) 1 % (0-3) Basophils (%) (Auto) 1 % (0-3) Neutrophils # (Auto) 7.0 x10^3/uL (1.8-7.7) Lymphocytes # (Auto) 2.0 x10^3/uL (1.0-4.8) Monocytes # (Auto) 1.3 x10^3/uL (0.0-1.1) Eosinophils # (Auto) 0.1 x10^3/uL (0.0-0.7) Basophils # (Auto) 0.1 x10^3/uL (0.0-0.2) Prothrombin Time 14.8 SEC (11.7-14.0) Prothromb Time International Ratio 1.2 (0.8-1.1) Sodium Level 137 mmol/L (136-145) Potassium Level 4.2 mmol/L (3.5-5.1) Chloride Level 103 mmol/L (98-107) Carbon Dioxide Level 28 mmol/L (21-32) Anion Gap 6 (6-14) Blood Urea Nitrogen 10 mg/dL (8-26) Creatinine 0.9 mg/dL (0.7-1.3) Estimated GFR (Cockcroft-Gault) 91.3 Glucose Level 116 mg/dL (70-99) Calcium Level 8.8 mg/dL (8.5-10.1) Erythrocyte Sedimentation Rate 109 (0-15) C-Reactive Protein, Quantitative 201.6 mg/L (0-3.3) Images Images CT of the pelvis shows wound with sbq air likely form open wound, no fluid collection and minimal inflammation Assessment/Plan Assessment/Plan Right buttock ulcer, normal wbc, afebrile with no drainable fluid collection Local wound care, IV antibiotics Consider plastics consult for flap coverage ALEXUS STANTON MD Dec 30, 2020 17:30
[2020-12-30 19:00] VITALS: BP 114/39
[2020-12-30 23:00] VITALS: BP 133/58
[2020-12-31] MEDS: PIPERACILLIN/TAZOBACTAM 3.375 GM in IV NORMAL SALINE 50ML 50 ML IV SCH ×4 (00:24→17:09)
[2020-12-31 03:00] VITALS: BP 114/64
[2020-12-31] MEDS: IV NORMAL SALINE 1000ML BAG 1,000 ML IV SCH ×2 (04:56→11:43)
[2020-12-31 06:13] LABS: CREATININE 0.7 mg/dL (0.7-1.3); POTASSIUM 4.1 mmol/L (3.5-5.1)
[2020-12-31 07:00] VITALS: BP 151/77
--- NOTE | 2020-12-31 10:13 | PDOC ---
Infectious Disease Note Subjective: Subjective Patient feels a little better Continues to have low-grade fever Vital Signs: Vital Signs Vital Signs Date Time Temp Pulse Resp B/P (MAP) Pulse Ox O2 Delivery O2 Flow Rate FiO2 12/31/20 07:47 Room Air 12/31/20 07:00 98.1 87 18 151/77 (101) 95 98.1 Physical Exam: PHYSICAL EXAM GENERAL: Alert, oriented x 3 male, lying in bed comfortably, in no acute distress. HEENT: Normocephalic, atraumatic. Anicteric. NECK: Supple. No JVD. LUNGS: Clear. HEART: S1, S2. ABDOMEN: Soft, nontender.BS + gutierrez in place EXTREMITIES: No edema. Right large ischial wound necrotic foul smelling, dry eschar present, surrounding erythema. DERM: Warm, dry, no generalized rash except for multiple tattoos. CENTRAL NERVOUS SYSTEM: Alert, oriented, paraplegia, upper ext strength ok PSYCHIATRIC: Calm and cooperative. Medications: Inpatient Meds: Medications reviewed. Labs: Lab Laboratory Tests Test 12/30/20 10:55 12/31/20 04:00 Erythrocyte Sedimentation Rate 109 (0-15) C-Reactive Protein, Quantitative 201.6 mg/L (0-3.3) Sodium Level 142 mmol/L (136-145) Potassium Level 4.1 mmol/L (3.5-5.1) Chloride Level 107 mmol/L (98-107) Carbon Dioxide Level 26 mmol/L (21-32) Anion Gap 9 (6-14) Blood Urea Nitrogen 8 mg/dL (8-26) Creatinine 0.7 mg/dL (0.7-1.3) Estimated GFR (Cockcroft-Gault) 122.0 Glucose Level 118 mg/dL (70-99) Calcium Level 8.0 mg/dL (8.5-10.1) Creatine Kinase 108 U/L (39-308) Micro CT pelvis IMPRESSION: 1. Soft tissue stranding and gas within the posterior medial right buttock extending to the ischial tuberosity and right perineum and a skin defect within the inferior medial buttock. Correlate for recent debridement in this location or cellulitis and a superimposed gas forming infectious etiology. No drainable fluid collection/abscess is seen. There is no convincing CT evidence of osteomyelitis. Note is made that MRI is more sensitive for osteomyelitis. 2. Suspected reactive right iliac chain and inguinal lymphadenopathy. 3. Mild bilateral hip osteoarthritis and degenerative change involving the lumbar spine 4. Gutierrez catheter within a decompressed bladder. 5. Heterotopic ossification and scarring within the lateral right hip, possibly due to the sequela of remote injury, trochanteric bursitis or prior surgery. Objective: Assessment: Right ischial necrotic wound -Abnormal CT -ESR greater than 100, CRP greater than 200 Paraplegia Fever Hernia repair Neurogenic bladder with Gutierrez in place Plan: Plan of Care Continue Zosyn and daptomycin General surgery following May need debridement Follow-up labs and cultures Offload Continue local care Continue supportive care Discussed with nursing staff JAVIER SCOTT MD Dec 31, 2020 10:12
--- NOTE | 2020-12-31 10:29 | CONS ---
DATE OF CONSULTATION: 12/30/2020 REFERRING PHYSICIAN: Dr. Bradshaw. REASON FOR CONSULTATION: Infected right ischial/buttock wound, antibiotic management. HISTORY OF PRESENT ILLNESS: A 45-year-old male with history of diabetes, hypertension, debility, chronic pancreatitis, chronic pain, was [facility] for nonhealing buttock wound. The patient was found to have worsening of the wound, so was admitted to [facility] for further evaluation and treatment. The patient had fever. White count was normal. The patient was started on Zosyn. General Surgery consulted. ID consultation has been requested for antibiotic management. PAST MEDICAL HISTORY: Diabetes, hypertension, Paraplegia Neurogenic bladder with gutierrez inplace, gen debility pancreatitis, chronic pain, history of recent UTI, history of pneumonia. ALLERGIES: None. FAMILY HISTORY: Diabetes. SOCIAL HISTORY: Denies smoking or illicit drug use. CURRENT MEDICATIONS: Zosyn. Other medications reviewed in medication list. The patient was on once daily antibiotic prior to admission for UTI. He could not recall the name. REVIEW OF SYSTEMS: Negative except for above in HPI. PHYSICAL EXAMINATION: VITAL SIGNS: Temperature 98.6, T-max 100.9, pulse 96, respiratory rate 18, blood pressure 102/65, oxygen saturation 95% on room air. GENERAL: Alert, oriented x 3 male, lying in bed comfortably, in no acute distress. HEENT: Normocephalic, atraumatic. Anicteric. NECK: Supple. No JVD. LUNGS: Clear. HEART: S1, S2. ABDOMEN: Soft, nontender.BS + gutierrez in place EXTREMITIES: No edema. Right large ischial wound necrotic foul smelling, dry eschar present, surrounding erythema. DERM: Warm, dry, no generalized rash except for multiple tattoos. CENTRAL NERVOUS SYSTEM: Alert, oriented, paraplegia, upper ext strength ok PSYCHIATRIC: Calm and cooperative. MICRO: None. IMPRESSION: 1. Infected right buttock wound, nonhealing. 2. Fever. 3. Diabetes. 4. Chronic pain. 5. History of pancreatitis. 6.Paraplegia RECOMMENDATIONS: 1. Continue Zosyn, add daptomycin. 2. Obtain blood cultures. 3. Obtain CT pelvis. 4. General Surgery consulted. Will likely need surgical debridement. 5. Follow up labs and cultures. 6. Offload. 7. Continue supportive care. 8. Wound care as directed. Thank you for consulting infectious disease to participate in this patient's care. If you have any questions, do not hesitate to contact me. ZHENG DR: Shayan TID: [id number] JAMES
--- NOTE | 2020-12-31 10:32 | HP ---
ADMIT DATE: 12/29/2020 CHIEF COMPLAINT: Buttock wound. HISTORY OF PRESENT ILLNESS: The patient is a pleasant 45-year-old male who has been seen at the [facility] for some time. He has a buttock wound that is not healing. It is on the right, it is near the ischial region. He has now been transferred from the [facility] to our facility. He is going to be admitted. He is going to room 14. PAST MEDICAL HISTORY: Diabetes, hypertension, chronic wounds, debility, pancreatitis, chronic pain. ALLERGIES: None. FAMILY HISTORY: Diabetes. SOCIAL HISTORY: Does not drink, smoke or take drugs. MEDICATIONS: Reviewed, please refer to the MRAD. REVIEW OF SYSTEMS: GENERAL: No history of weight change, weakness or fevers. SKIN: No bruising, hair changes or rashes. EYES: No blurred, double or loss of vision. NOSE AND THROAT: No history of nosebleeds, hoarseness or sore throat. HEART: No history of palpitations, chest pain or shortness of breath on exertion. LUNGS: Denies cough, hemoptysis, wheezing or shortness of breath. GASTROINTESTINAL: Denies changes in appetite, nausea, vomiting, diarrhea or constipation. GENITOURINARY: No history of frequency, urgency, hesitancy or nocturia. NEUROLOGIC: Denies history of numbness, tingling, tremor or weakness. PSYCHIATRIC: No history of panic, anxiety or depression. ENDOCRINE: No history of heat or cold intolerance, polyuria or polydipsia. EXTREMITIES: Denies muscle weakness, joint pain, pain on walking or stiffness. PHYSICAL EXAMINATION: VITALS: Within normal limits and are stable. GENERAL: No apparent distress. Alert and oriented. HEENT: Normal cephalic atraumatic, external auditory canals are patent EYES: Extraocular muscles are intact, pupils are equally round and reactive to light and accommodation MUSCULOSKELETAL: Well developed, well nourished, good range of motion ENDOCRINE: No thyromegaly was palpated LYMPHATICS: No cervical chain or axillary nodes were noted HEMATOPOIETIC: No bruising NECK: Supple, no JVD, no thyromegaly was noted. LUNGS: Clear to auscultation in all lung hansen without rhonchi or wheezing. HEART: RRR, S1, S2 present. Peripheral pulses intact, no obvious murmurs were noted. ABDOMEN: Ischial wound on the right. EXTREMITIES: Without any cyanosis, clubbing, or edema. Pedal pulses intact, Homans sign is negative. NEUROLOGIC: Normal speech, normal tone. A and O x 3, moves all extremities, no obvious focal deficits. PSYCHIATRIC: Normal affect, normal mood. Stable. SKIN: No ulcerations or rashes, good skin turgor, no jaundice. VASCULAR: Good capillary refill, neurovascular bundle appears to be intact. ASSESSMENT AND PLAN: Ischial buttock wound. The patient has been admitted. We will consult the wound care team. IV antibiotics, home medications, deep venous thrombosis prophylaxis. Full code. LAWANDA/TAWANDA/GABRIELLE DR: Estrada TID: [id number]
[2020-12-31 11:00] VITALS: BP 138/78
[2020-12-31] MEDS: DAPTOmycin (GENERIC) IVPB 540 MG in IV NORMAL SALINE 50ML 50 ML IV SCH (11:00)
--- NOTE | 2020-12-31 13:03 | PDOC ---
[employer] PROGRESS NOTE Date of Service DOS: DATE: 12/31/20 TIME: 12:57 Chief Complaint Chief Complaint CC: Buttock wound Diabetes hypertension chronic wounds debility pancreatitis chronic pain. History of Present Illness History of Present Illness 12/31 Pt seen and examined. LATOYA RN and DW case management. Wound has clean and dry intact dressing. Discussed with patient that we will consult Dr. Leigh for surgery. HPI: The patient is a pleasant 45-year-old male who has been seen at the [facility] for some time. He has a buttock wound that is not healing. It is on the right, it is near the ischial region. He has now been transferred from the [facility] to our facility. He is going to be admitted. Vitals/I&O Vitals/I&O: Vital Signs Date Time Temp Pulse Resp B/P (MAP) Pulse Ox O2 Delivery O2 Flow Rate FiO2 12/31/20 11:00 98.1 92 18 138/78 (98) 96 Room Air 98.1 I & O 12/30/20 12/30/20 12/31/20 15:00 23:00 07:00 Intake Total 240 ml 300 ml Output Total 200 ml 325 ml Balance 40 ml -25 ml Physical Exam Physical Exam: GENERAL: Alert, oriented x 3 male, lying in bed comfortably, in no acute distress. HEENT: Normocephalic, atraumatic. Anicteric. NECK: Supple. No JVD. LUNGS: Clear. HEART: S1, S2. ABDOMEN: Soft, nontender.BS + gutierrez in place EXTREMITIES: No edema. Right large ischial wound necrotic foul smelling, dry eschar present, surrounding erythema. DERM: Warm, dry, no generalized rash except for multiple tattoos. CENTRAL NERVOUS SYSTEM: Alert, oriented, paraplegia, upper ext strength ok PSYCHIATRIC: Calm and cooperative. General: Alert, Oriented X3, Cooperative, No acute distress Heart: Regular rate, Normal S1, Normal S2, No murmurs Lungs: Clear Abdomen: Normal bowel sounds, Soft, No tenderness Extremities: No clubbing, No cyanosis, Other (Large decubitus ulcer right buttock no odor superficial necrosis ) Skin: Other (Large decubitus ulcer right buttock no odor superficial necrosis ) Labs Labs: Laboratory Tests Test 12/31/20 04:00 Sodium Level 142 mmol/L (136-145) Potassium Level 4.1 mmol/L (3.5-5.1) Chloride Level 107 mmol/L (98-107) Carbon Dioxide Level 26 mmol/L (21-32) Anion Gap 9 (6-14) Blood Urea Nitrogen 8 mg/dL (8-26) Creatinine 0.7 mg/dL (0.7-1.3) Estimated GFR (Cockcroft-Gault) 122.0 Glucose Level 118 mg/dL (70-99) Calcium Level 8.0 mg/dL (8.5-10.1) Creatine Kinase 108 U/L (39-308) Review of Systems Review of Systems: Denies chest pain. Denies SOA. Assessment and Plan Assessmemt and Plan Assessment: CC: Buttock wound. Diabetes hypertension chronic wounds debility pancreatitis chronic pain. Plan: Wound Care Consulting Dr. Justine Leigh for surgery Continue Antibiotics Trend Labs Continue home meds DVT prophylaxis PT/OT Full Code Comment Review of Relevant I have reviewed the following items ale (where applicable) has been applied. Justifications for Admission Other Justification SHANA DAVENPORT III DO Dec 31, 2020 13:03
[2020-12-31] MEDS: ACETAMINOPHEN 325 MG TABLET. PO PRN (14:40)
[2020-12-31 15:00] VITALS: BP 141/80
--- NOTE | 2020-12-31 15:53 | NUR ---
Wound/Ostomy Care Wound Type/Assessment: New pt was seen in outpatient wound care clinic for right buttock/ischial PU unstageable, periwound is indurated, draining, red and with foul smell, pt also c/o fevers. Upon evaluation Dr. Castellanos recommended admission to hospital for eval and treat and consults to general surgery and ID. Pt agreeable to plan and was sent to ED for admission. Pictures and measures sent with pt along with wound care instructions. Treatment Recommendations/Plan: cleanse wound, pack with dakins soaked gauze and cover with abd and tape, change daily and prn. Education provided: pt educated on PU offloading, turn q2h right to left only, sitting on laying on back only for meals. Offloading surface/device: Patient is on a P-500 bed at this time and patient repositioned using wedge. Recommended Referrals/Tests: new consult for Dr. Leigh Discharge Recommendations for dressings: will re-evaluate on 01/05/2021.
--- NOTE | 2020-12-31 16:20 | NUR ---
Wound Care - Debridement Wound Type/Assessment: 45 year old paraplegic male with a right ischial necrotic and unstageable pressure ulcer was seen with Dr. Justine Leigh for a bedside debridement of the ischial wound. The following is the summary of the bedside debridement. *Dr. Leigh arrived with surgical sales representative. Dr. Leigh introduced herself, examined patient and thoroughly explained the surgical procedure to be completed. *Consent forms for surgical treatment were signed and dated *[employer] [facility] Electro Cautery Pad (Lot [id number]) was applied to patient's right outer thigh. *Patient was positioned appropriately for procedure. Dr. Leigh and Paulino, Engineer [employer], surgically draped patient and donned surgical gear. *Procedure time out was taken at 1637. Dr. Leigh again stated out loud the procedure and location to be completed. Confirmation was affirmed by patient and Nursing Staff present. *First incision was at 1639 hours. *Necrotic tissue was excised from affected area. Specimen of necrotic ischial pressure ulcer was sent to lab for Aerobic, Anaerobic and Fungal analysis. *Procedure was completed at 1654 hours. Necrotic wound continued deeper toward the rectum and will need further surgical revision in the Operating Room *Total irrigation used for procedure was 300cc's *Total EBL was less than 20cc's *Dakins soaked Kerlix was packed into the wound. Wound was covered with an ABD pad and secured with Hypafix. *Patient tolerated the procedure well. Treatment Recommendations/Plan: Patient will return to surgery next week with Dr. Leigh for further revision of the ischial pressure ulcer. Daily dressing packing changes with Dakins soaked Kerlix, cover with ABD and secure with Hypafix Education provided: Patient was educated on care to be completed daily in regards to the wound. Offloading surface/device: Patient is on a P-500 low air loss matrass. Will consider a [place] type bed next week after surgery. Recommended Referrals/Tests: Tissue specimen sent to the lab for Aerobic, Anaerobic and Fungal analysis. Discharge Recommendations for dressings: Dakins packed Kerlix as stated.
[2020-12-31 19:00] VITALS: BP 137/66
--- NOTE | 2020-12-31 19:43 | PDOC2 ---
CONSULT Date of Consult Date of Consult DATE: 12/31/20 TIME: 16:15 Reason for Consult Reason for Consult: Necrotic right ischial pressure ulcer Referring Physician Referring Physician: Lee Luna RN Identification/Chief Complaint Chief Complaint Necrotic right ischial pressure ulcer Source Source: Patient History of Present Illness Reason for Visit: Mr. Rivera is a pleasant 45-year-old male with a history of diabetes, hy pertension, paraplegia, chronic pancreatitis, chronic pain. The wound care team asked me to see this patient as he was admitted with signs of sepsis including a fever and elevated CRP and has a unstageable right ischial pressure ulcer which appeared to be the source. The patient states that he has been a paraplegic since approximately 1997 from the level of T4 distal. He has done well with avoiding pressure ulcers with only 1 sacral ulcer in 2006 during a hospitalization for illness for which he eventually underwent a flap closure. This present right ischial ulcer is only his second ulcer. He states that it began as the size of a nickel but increased to its present status when he became ill with pneumonia. The patient is currently receiving Daptomycin and Zosyn with Dakin's wet-to-dry dressing directly over the wound. Past Medical History Past Medical History See HPI Cardiovascular: No pertinent hx Pulmonary: No pertinent hx CENTRAL NERVOUS SYSTEM: Other (paralysis) GI: No pertinent hx Heme/Onc: No pertinent hx Hepatobiliary: No pertinent hx Psych: No pertinent hx Rheumatologic: No pertinent hx Infectious disease: No pertinent hx ENT: No pertinent hx Renal/: No pertinent hx Endocrine: No pertinent hx Dermatology: No pertinent hx Past Surgical History Past Surgical History See HPI Past Surgical History: Hernia Repair, Other, No pertinent history Social History ALCOHOL: none Drugs: None Current Medications Current Medications Current Medications Acetaminophen (Tylenol) 650 mg PRN Q6HRS PRN PO Headaches, Temp > 101.5F Last administered on 12/31/20at 14:40; Start 12/29/20 at 21:30 Sodium Chloride 1,000 ml @ 75 mls/hr [id number] IV Last administered on 12/31/20at 11:43; Start 12/29/20 at 21:30 Piperacillin Sod/ Tazobactam Sod (Zosyn Per Pharmacy) 1 each PRN DAILY PRN MC SEE COMMENTS; Start 12/29/20 at 21:30 Piperacillin Sod/ Tazobactam Sod 3.375 gm/Sodium Chloride 50 ml @ 100 mls/hr Q6HRS IV ; Start 12/29/20 at 22:30; Stop 12/29/20 at 22:02; Status DC Sodium Hypochlorite (Dakin'S 1/4 Strength) 1 jacob PRN DAILY TP ; Start 12/29/20 at 22:00 Piperacillin Sod/ Tazobactam Sod 3.375 gm/Sodium Chloride 50 ml @ 100 mls/hr Q6HRS IV Last administered on 12/31/20at 17:09; Start 12/30/20 at 00:00 Daptomycin 540 mg/ Sodium Chloride 50 ml @ 100 mls/hr Q24H IV Last administered on 12/31/20at 11:00; Start 12/30/20 at 11:00 Lactobacillus Rhamnosus (Culturelle) 1 cap BID PO ; Start 12/31/20 at 21:00 Multivitamins (Thera M Plus) 1 tab DAILY PO ; Start 01/01/21 at 09:00 Active Scripts Active Oxycodone-Acetaminophen 5-325 (Oxycodone Hcl/Acetaminophen) 1 Each Tablet 1 Tab PO PRN Q4HRS PRN Allergies Allergies: Coded Allergies: No Known Drug Allergies (Unverified , 01/03/18) Physical Exam MUSCULOSKELETAL: Other (Large right ischial pressure ulcer with necrotic eschar in place. Wound measures approximately 9 x 6 x 8 cm with tunneling anteromedially toward rectum. Positive odor, positive purulent/foul-smelling discharge, positive surrounding erythema.) Vitals VITALS Vital Signs Date Time Temp Pulse Resp B/P (MAP) Pulse Ox O2 Delivery O2 Flow Rate FiO2 12/31/20 15:00 99.2 98 18 141/80 (100) 97 Room Air 99.2 Labs Labs Laboratory Tests Test 12/29/20 22:00 12/29/20 23:20 12/30/20 04:25 12/30/20 10:55 Urine Collection Type Unknown Urine Color Tawanna Urine Clarity Clear Urine pH 6.0 (<5.0-8.0) Urine Specific [place] >=1.030 (1.000-1.030) Urine Protein 30 mg/dL (NEG-TRACE) Urine Glucose (UA) Negative mg/dL (NEG) Urine Ketones (Stick) Trace mg/dL (NEG) Urine Blood Negative (NEG) Urine Nitrite Negative (NEG) Urine Bilirubin Negative (NEG) Urine Urobilinogen Dipstick 1.0 mg/dL (0.2 mg/dL) Urine Leukocyte Esterase Small (NEG) Urine RBC 0 /HPF (0-2) Urine WBC 5-10 /HPF (0-4) Urine Squamous Epithelial Cells Many /LPF Urine Bacteria 0 /HPF (0-FEW) Urine Mucus Marked /LPF SARS-CoV-2 RNA (CAROLANN) Negative (Negative) SARS-CoV-2 Antigen (Rapid) Negative (NEGATIVE) White Blood Count 10.6 x10^3/uL (4.0-11.0) Red Blood Count 4.11 x10^6/uL (4.30-5.70) Hemoglobin 11.1 g/dL (13.0-17.5) Hematocrit 35.0 % (39.0-53.0) Mean Corpuscular Volume 85 fL (79-100) Mean Corpuscular Hemoglobin 27 pg (25-35) Mean Corpuscular Hemoglobin Concent 32 g/dL (31-37) Red Cell Distribution Width 15.5 % (11.5-14.5) Platelet Count 506 x10^3/uL (140-400) Neutrophils (%) (Auto) 67 % (31-73) Lymphocytes (%) (Auto) 19 % (24-48) Monocytes (%) (Auto) 13 % (0-9) Eosinophils (%) (Auto) 1 % (0-3) Basophils (%) (Auto) 1 % (0-3) Neutrophils # (Auto) 7.0 x10^3/uL (1.8-7.7) Lymphocytes # (Auto) 2.0 x10^3/uL (1.0-4.8) Monocytes # (Auto) 1.3 x10^3/uL (0.0-1.1) Eosinophils # (Auto) 0.1 x10^3/uL (0.0-0.7) Basophils # (Auto) 0.1 x10^3/uL (0.0-0.2) Prothrombin Time 14.8 SEC (11.7-14.0) Prothromb Time International Ratio 1.2 (0.8-1.1) Sodium Level 137 mmol/L (136-145) Potassium Level 4.2 mmol/L (3.5-5.1) Chloride Level 103 mmol/L (98-107) Carbon Dioxide Level 28 mmol/L (21-32) Anion Gap 6 (6-14) Blood Urea Nitrogen 10 mg/dL (8-26) Creatinine 0.9 mg/dL (0.7-1.3) Estimated GFR (Cockcroft-Gault) 91.3 Glucose Level 116 mg/dL (70-99) Calcium Level 8.8 mg/dL (8.5-10.1) Erythrocyte Sedimentation Rate 109 (0-15) C-Reactive Protein, Quantitative 201.6 mg/L (0-3.3) Test 12/31/20 04:00 Sodium Level 142 mmol/L (136-145) Potassium Level 4.1 mmol/L (3.5-5.1) Chloride Level 107 mmol/L (98-107) Carbon Dioxide Level 26 mmol/L (21-32) Anion Gap 9 (6-14) Blood Urea Nitrogen 8 mg/dL (8-26) Creatinine 0.7 mg/dL (0.7-1.3) Estimated GFR (Cockcroft-Gault) 122.0 Glucose Level 118 mg/dL (70-99) Calcium Level 8.0 mg/dL (8.5-10.1) Creatine Kinase 108 U/L (39-308) Laboratory Tests Test 12/31/20 04:00 Sodium Level 142 mmol/L (136-145) Potassium Level 4.1 mmol/L (3.5-5.1) Chloride Level 107 mmol/L (98-107) Carbon Dioxide Level 26 mmol/L (21-32) Anion Gap 9 (6-14) Blood Urea Nitrogen 8 mg/dL (8-26) Creatinine 0.7 mg/dL (0.7-1.3) Estimated GFR (Cockcroft-Gault) 122.0 Glucose Level 118 mg/dL (70-99) Calcium Level 8.0 mg/dL (8.5-10.1) Creatine Kinase 108 U/L (39-308) Images Images CT pelvis 12/30/20: FINDINGS: There is soft tissue stranding and gas within the posterior medial right buttock which extends to the level of the right ischial tuberosity and into the right perineum. There is an overlying skin defect within the inferior medial right buttock with overlying bandage material. No drainable fluid collection/abscess is seen. There is no involvement of the rectum or anus. There is a Jackson catheter in expected position. There is asymmetric enlargement of right iliac chain and inguinal lymph nodes, possibly reactive in etiology. The bladder is decompressed. There is heterotopic ossification and increased soft tissue density within the lateral right hip which is likely related to the sequela of remote trauma, trochanteric bursitis or surgery. There is internal fixation of the left femur, partially included on the [id number]. There is mild bilateral hip osteoarthritis. There is mild lumbar scoliosis. There are disc bulges with endplate remodeling and facet arthropathy at the visualized lower lumbar levels. IMPRESSION: 1. Soft tissue stranding and gas within the posterior medial right buttock extending to the ischial tuberosity and right perineum and a skin defect within the inferior medial buttock. Correlate for recent debridement in this location or cellulitis and a superimposed gas forming infectious etiology. No drainable fluid collection/abscess is seen. There is no convincing CT evidence of osteomyelitis. Note is made that MRI is more sensitive for osteomyelitis. 2. Suspected reactive right iliac chain and inguinal lymphadenopathy. 3. Mild bilateral hip osteoarthritis and degenerative change involving the lumbar spine 4. Jackson catheter within a decompressed bladder. 5. Heterotopic ossification and scarring within the lateral right hip, possibly due to the sequela of remote injury, trochanteric bursitis or prior surgery. Assessment/Plan Assessment/Plan His blood cultures are negative to date. His urine culture shows mixed walker. His wound culture preliminarily shows Pseudomonas aeruginosa and Enterococcus faecalis. Procedure: Excisional debridement right ischial pressure ulcer, CPT 37300 x one [place] 44121 x 9 units Debridement time 4:38 PM4:56 PM Informed consent was taken at the bedside. The risk of bleeding, worsening i nfection, need for further debridement was discussed with the patient. He understood the risks and agreed to proceed. The patient was positioned in the left lateral decubitus position. The right ischial pressure ulcer and surrounding skin were prepped with Betadine and draped in a sterile fashion. A timeout was completed verifying the correct patient and correct procedure. A c autery and forceps were used to excise the necrotic eschar and underlying subcutaneous tissue. This tissue was labeled and sent to the lab for culture. The muscle level was reached and the necrotic tissue was noted to continue. There was no bleeding tissue below the level of the dermis. Digital probing confirmed that the wound depth extended towards the bone. There was purulent fluid encountered in this area and pockets were digitally opened. There was no palpable bone. The direction of the wound was toward the rectum. At this time initial debridement was concluded. The wound was irrigated with a liter of saline. Hemostasis was achieved with electrocautery of the skin edges. A Dakin's wet-to-dry dressing was placed, covered with an ABD, and secured with tape. The patient tolerated the procedure well. I discussed with the patient that we were able to unroof the pressure ulcer and released some of the purulent fluid. This will help in the delivery of local wound care. I confirmed with him that he will need further debridement in the operating room. He understood the above and we will get this arranged for Monday versus Monday. Continue IV antibiotics per ID. Continue Dakin's wet-to-dry dressing. Will follow up tissue cultures sent from this debridement Thank you for involving me in the care of the patient. DONNA WATKINS MD Dec 31, 2020 19:43
[2020-12-31] MEDS: LACTOBACILLUS RHAMNOSUS GG 1 CAPSULE. PO SCH (21:27)
[2020-12-31 23:00] VITALS: BP 147/67
[2021-01-01] MEDS: PIPERACILLIN/TAZOBACTAM 3.375 GM in IV NORMAL SALINE 50ML 50 ML IV SCH ×4 (00:55→18:26)
[2021-01-01] MEDS: ACETAMINOPHEN 325 MG TABLET. PO PRN ×2 (01:10→20:30)
[2021-01-01 03:00] VITALS: BP 139/78
[2021-01-01] MEDS: IV NORMAL SALINE 1000ML BAG 1,000 ML IV SCH ×3 (04:45→22:16)
[2021-01-01 07:00] VITALS: BP 139/73
[2021-01-01 07:46] LABS: BASO % 0 % (0-3); EOS # 0.2 x10^3/uL (0.0-0.7); EOS % 2 % (0-3); HEMATOCRIT 32.9 % (39.0-53.0); HEMOGLOBIN 10.5 g/dL (13.0-17.5); LYMPH # 1.4 x10^3/uL (1.0-4.8); LYMPH % 17 % (24-48); MEAN CORPUSCULAR HEMOGLOBIN 27 pg (25-35); MEAN CORPUSCULAR HGB CONC 32 g/dL (31-37); MEAN CORPUSCULAR VOLUME 84 fL (79-100); MONO # 0.7 x10^3/uL (0.0-1.1); MONO % 9 % (0-9); NEUT # 6.1 x10^3/uL (1.8-7.7); NEUT % 72 % (31-73); PLATELET COUNT 466 x10^3/uL (140-400); RED BLOOD COUNT 3.91 x10^6/uL (4.30-5.70); WHITE BLOOD COUNT 8.4 x10^3/uL (4.0-11.0)
[2021-01-01 07:48] LABS: CALCIUM 8.4 mg/dL (8.5-10.1); CREATININE 0.7 mg/dL (0.7-1.3); POTASSIUM 4.1 mmol/L (3.5-5.1)
[2021-01-01] MEDS: LACTOBACILLUS RHAMNOSUS GG 1 CAPSULE. PO SCH ×2 (09:00→20:30)
[2021-01-01] MEDS: MULTIVITAMIN with MINERAL TABLET. PO SCH (09:00)
--- NOTE | 2021-01-01 09:44 | PDOC ---
Infectious Disease Note Subjective: Subjective Patient underwent bedside debridement yesterday by Dr. Leigh Awaiting repeat debridement in OR later today Denies fever, nausea, vomiting, diarrhea Vital Signs: Vital Signs Vital Signs Date Time Temp Pulse Resp B/P (MAP) Pulse Ox O2 Delivery O2 Flow Rate FiO2 01/01/21 07:00 98.1 85 16 139/73 (95) 96 Room Air 98.1 Physical Exam: PHYSICAL EXAM GENERAL: Alert, oriented x 3 male, lying in bed comfortably, in no acute distress. HEENT: Normocephalic, atraumatic. Anicteric. NECK: Supple. No JVD. LUNGS: Clear. HEART: S1, S2. ABDOMEN: Soft, nontender.BS + gutierrez in place EXTREMITIES: No edema. Right large ischial wound necrotic foul smelling, dry eschar present, surrounding erythema. DERM: Warm, dry, no generalized rash except for multiple tattoos. CENTRAL NERVOUS SYSTEM: Alert, oriented, paraplegia, upper ext strength ok PSYCHIATRIC: Calm and cooperative. Medications: Inpatient Meds: Medications reviewed. Labs: Lab Laboratory Tests Test 01/01/21 05:55 White Blood Count 8.4 x10^3/uL (4.0-11.0) Red Blood Count 3.91 x10^6/uL (4.30-5.70) Hemoglobin 10.5 g/dL (13.0-17.5) Hematocrit 32.9 % (39.0-53.0) Mean Corpuscular Volume 84 fL (79-100) Mean Corpuscular Hemoglobin 27 pg (25-35) Mean Corpuscular Hemoglobin Concent 32 g/dL (31-37) Red Cell Distribution Width 15.0 % (11.5-14.5) Platelet Count 466 x10^3/uL (140-400) Neutrophils (%) (Auto) 72 % (31-73) Lymphocytes (%) (Auto) 17 % (24-48) Monocytes (%) (Auto) 9 % (0-9) Eosinophils (%) (Auto) 2 % (0-3) Basophils (%) (Auto) 0 % (0-3) Neutrophils # (Auto) 6.1 x10^3/uL (1.8-7.7) Lymphocytes # (Auto) 1.4 x10^3/uL (1.0-4.8) Monocytes # (Auto) 0.7 x10^3/uL (0.0-1.1) Eosinophils # (Auto) 0.2 x10^3/uL (0.0-0.7) Basophils # (Auto) 0.0 x10^3/uL (0.0-0.2) Sodium Level 139 mmol/L (136-145) Potassium Level 4.1 mmol/L (3.5-5.1) Chloride Level 105 mmol/L (98-107) Carbon Dioxide Level 29 mmol/L (21-32) Anion Gap 5 (6-14) Blood Urea Nitrogen 6 mg/dL (8-26) Creatinine 0.7 mg/dL (0.7-1.3) Estimated GFR (Cockcroft-Gault) 122.0 Glucose Level 117 mg/dL (70-99) Calcium Level 8.4 mg/dL (8.5-10.1) Micro CT pelvis IMPRESSION: 1. Soft tissue stranding and gas within the posterior medial right buttock extending to the ischial tuberosity and right perineum and a skin defect within the inferior medial buttock. Correlate for recent debridement in this location or cellulitis and a superimposed gas forming infectious etiology. No drainable fluid collection/abscess is seen. There is no convincing CT evidence of osteomyelitis. Note is made that MRI is more sensitive for osteomyelitis. 2. Suspected reactive right iliac chain and inguinal lymphadenopathy. 3. Mild bilateral hip osteoarthritis and degenerative change involving the lumbar spine 4. Gutierrez catheter within a decompressed bladder. 5. Heterotopic ossification and scarring within the lateral right hip, possibly due to the sequela of remote injury, trochanteric bursitis or prior surgery. Objective: Assessment: Right ischial necrotic wound -Abnormal CT -ESR greater than 100, CRP greater than 200 -Status post bedside I&D on December 31, 2020 -Awaiting debridement January 01, 2021 Paraplegia Fever pattern improved Hernia repair Neurogenic bladder with Gutierrez in place Plan: Plan of Care Continue Zosyn and daptomycin Plastic surgery following Awaiting debridement Follow-up labs and cultures Offload Continue local care Continue supportive care Discussed with nursing staff JAVIER SCOTT MD Jan 01, 2021 09:44
--- NOTE | 2021-01-01 10:05 | NUR ---
SW following. Discussed with RN, pt seen by plastics - plan for further debridement in the OR, unsure of timing. RN advised no SW needs at this time. SW will continue to follow.
[2021-01-01 10:36] LABS: % BANDS 1 % (0-9); % LYMPHS 19 % (24-48); % MONOS 4 % (0-10); % SEGS 76 % (35-66); PLT ESTIMATE INCREASED (ADEQUATE)
[2021-01-01 11:00] VITALS: BP 138/18
--- NOTE | 2021-01-01 11:29 | PDOC ---
[employer] PROGRESS NOTE Date of Service DOS: DATE: 01/01/21 TIME: 11:26 Chief Complaint Chief Complaint CC: Buttock wound Diabetes hypertension chronic wounds debility pancreatitis chronic pain. History of Present Illness History of Present Illness 01/01 Pt seen and examined. LATOYA RN and LATOYA case management. Wound has clean and dry intact dressing. Patient is in pleasant mood today. 12/31 Pt seen and examined. LATOYA RN and LATOYA case management. Wound has clean and dry intact dressing. Discussed with patient that we will consult Dr. Leigh for surgery. HPI: The patient is a pleasant 45-year-old male who [facility]. He has a buttock wound that is not healing. It is on the right, it is near the ischial region. He has now been transferred [facility] the [facility] to our facility. He is going to be admitted. Vitals/I&O Vitals/I&O: Vital Signs Date Time Temp Pulse Resp B/P (MAP) Pulse Ox O2 Delivery O2 Flow Rate FiO2 01/01/21 08:00 Room Air 01/01/21 07:00 98.1 85 16 139/73 (95) 96 98.1 I & O 12/31/20 12/31/20 01/01/21 15:00 23:00 07:00 Intake Total 470 ml Output Total 325 ml 300 ml 300 ml Balance -325 ml 170 ml -300 ml Physical Exam Physical Exam: GENERAL: Alert, oriented x 3 male, lying in bed comfortably, in no acute distress. HEENT: Normocephalic, atraumatic. Anicteric. NECK: Supple. No JVD. LUNGS: Clear. HEART: S1, S2. ABDOMEN: Soft, nontender.BS + gutierrez in place EXTREMITIES: No edema. Right large ischial wound necrotic foul smelling, dry eschar present, surrounding erythema. DERM: Warm, dry, no generalized rash except for multiple tattoos. CENTRAL NERVOUS SYSTEM: Alert, oriented, paraplegia, upper ext strength ok PSYCHIATRIC: Calm and cooperative. General: Alert, Oriented X3, Cooperative, No acute distress Heart: Regular rate, Normal S1, Normal S2, No murmurs Lungs: Clear Abdomen: Normal bowel sounds, Soft, No tenderness Extremities: No clubbing, No cyanosis, Other (Large decubitus ulcer right buttock no odor superficial necrosis ) Skin: Other (Large decubitus ulcer right buttock no odor superficial necrosis ) Labs Labs: Laboratory Tests Test 01/01/21 05:55 White Blood Count 8.4 x10^3/uL (4.0-11.0) Red Blood Count 3.91 x10^6/uL (4.30-5.70) Hemoglobin 10.5 g/dL (13.0-17.5) Hematocrit 32.9 % (39.0-53.0) Mean Corpuscular Volume 84 fL (79-100) Mean Corpuscular Hemoglobin 27 pg (25-35) Mean Corpuscular Hemoglobin Concent 32 g/dL (31-37) Red Cell Distribution Width 15.0 % (11.5-14.5) Platelet Count 466 x10^3/uL (140-400) Neutrophils (%) (Auto) 72 % (31-73) Lymphocytes (%) (Auto) 17 % (24-48) Monocytes (%) (Auto) 9 % (0-9) Eosinophils (%) (Auto) 2 % (0-3) Basophils (%) (Auto) 0 % (0-3) Neutrophils # (Auto) 6.1 x10^3/uL (1.8-7.7) Lymphocytes # (Auto) 1.4 x10^3/uL (1.0-4.8) Monocytes # (Auto) 0.7 x10^3/uL (0.0-1.1) Eosinophils # (Auto) 0.2 x10^3/uL (0.0-0.7) Basophils # (Auto) 0.0 x10^3/uL (0.0-0.2) Segmented Neutrophils % 76 % (35-66) Band Neutrophils % 1 % (0-9) Lymphocytes % 19 % (24-48) Monocytes % 4 % (0-10) Platelet Estimate Increased (ADEQUATE) Sodium Level 139 mmol/L (136-145) Potassium Level 4.1 mmol/L (3.5-5.1) Chloride Level 105 mmol/L (98-107) Carbon Dioxide Level 29 mmol/L (21-32) Anion Gap 5 (6-14) Blood Urea Nitrogen 6 mg/dL (8-26) Creatinine 0.7 mg/dL (0.7-1.3) Estimated GFR (Cockcroft-Gault) 122.0 Glucose Level 117 mg/dL (70-99) Calcium Level 8.4 mg/dL (8.5-10.1) Review of Systems Review of Systems: Denies abdominal pain. Denies SOA. Assessment and Plan Assessmemt and Plan Assessment: CC: Buttock wound. Diabetes hypertension chronic wounds debility pancreatitis chronic pain. Plan: Awaiting another debridement surgery either today or monday Wound Care Appreciate input on case from subspecialists Continue Antibiotics [facility] Continue home meds DVT prophylaxis PT/OT Full Code Comment Review of Relevant I have reviewed the following items ale (where applicable) has been applied. Medications: Current Medications Medications (Trade) Dose Ordered Sig/Mary Route PRN Reason Start Time Stop Time Status Last Admin Dose Admin Lactobacillus Rhamnosus (Culturelle) 1 cap BID PO 12/31/20 21:00 12/31/20 21:27 Justifications for Admission Other Justification SHANA DAVENPORT III DO Jan 01, 2021 11:29
[2021-01-01] MEDS: DAPTOmycin (GENERIC) IVPB 540 MG in IV NORMAL SALINE 50ML 50 ML IV SCH (11:30)
[2021-01-01] MEDS ORDERED: BISACODYL 10 MG SUPP.RECT. PR PRN (11:45)
[2021-01-01 15:00] VITALS: BP 145/79
[2021-01-01 19:00] VITALS: BP 175/84
--- NOTE | 2021-01-01 20:25 | NUR ---
Dr Bradshaw informed of temperature, confirmed ID on case and abx orders, to continue plan of care.
[2021-01-01 23:00] VITALS: BP 109/52
[2021-01-02] MEDS: PIPERACILLIN/TAZOBACTAM 3.375 GM in IV NORMAL SALINE 50ML 50 ML IV SCH ×2 (00:16→05:34)
[2021-01-02 03:00] VITALS: BP 139/73
[2021-01-02 05:36] LABS: BASO % 0 % (0-3); EOS # 0.1 x10^3/uL (0.0-0.7); EOS % 1 % (0-3); HEMATOCRIT 32.5 % (39.0-53.0); HEMOGLOBIN 10.4 g/dL (13.0-17.5); LYMPH # 1.3 x10^3/uL (1.0-4.8); LYMPH % 14 % (24-48); MEAN CORPUSCULAR HEMOGLOBIN 27 pg (25-35); MEAN CORPUSCULAR HGB CONC 32 g/dL (31-37); MEAN CORPUSCULAR VOLUME 84 fL (79-100); MONO % 11 % (0-9); NEUT # 6.9 x10^3/uL (1.8-7.7); NEUT % 74 % (31-73); PLATELET COUNT 471 x10^3/uL (140-400); RED BLOOD COUNT 3.85 x10^6/uL (4.30-5.70); RED CELL DISTRIBUTION WIDTH 15.4 % (11.5-14.5); WHITE BLOOD COUNT 9.3 x10^3/uL (4.0-11.0)
[2021-01-02 05:58] LABS: CALCIUM 8.2 mg/dL (8.5-10.1); CREATININE 0.8 mg/dL (0.7-1.3); GFR 104.5; POTASSIUM 3.9 mmol/L (3.5-5.1)
[2021-01-02 07:00] VITALS: BP 138/77
[2021-01-02] MEDS: MULTIVITAMIN with MINERAL TABLET. PO SCH (08:21)
[2021-01-02] MEDS: LACTOBACILLUS RHAMNOSUS GG 1 CAPSULE. PO SCH ×2 (08:21→21:00)
--- NOTE | 2021-01-02 08:49 | PDOC ---
Infectious Disease Note Subjective: Subjective Patient had fever last night Repeat I&D has been postponed until Monday next week Vital Signs: Vital Signs Vital Signs Date Time Temp Pulse Resp B/P (MAP) Pulse Ox O2 Delivery O2 Flow Rate FiO2 01/02/21 07:00 98.8 89 18 138/77 (97) 96 Room Air 98.8 Physical Exam: PHYSICAL EXAM GENERAL: Alert, oriented x 3 male, lying in bed comfortably, in no acute distress. HEENT: Normocephalic, atraumatic. Anicteric. NECK: Supple. No JVD. LUNGS: Clear. HEART: S1, S2. ABDOMEN: Soft, nontender.BS + gutierrez in place EXTREMITIES: No edema. Right large ischial wound necrotic foul smelling, dry eschar present, surrounding erythema. DERM: Warm, dry, no generalized rash except for multiple tattoos. CENTRAL NERVOUS SYSTEM: Alert, oriented, paraplegia, upper ext strength ok PSYCHIATRIC: Calm and cooperative. Medications: Inpatient Meds: Medications reviewed. Labs: Lab Laboratory Tests Test 01/02/21 04:30 White Blood Count 9.3 x10^3/uL (4.0-11.0) Red Blood Count 3.85 x10^6/uL (4.30-5.70) Hemoglobin 10.4 g/dL (13.0-17.5) Hematocrit 32.5 % (39.0-53.0) Mean Corpuscular Volume 84 fL (79-100) Mean Corpuscular Hemoglobin 27 pg (25-35) Mean Corpuscular Hemoglobin Concent 32 g/dL (31-37) Red Cell Distribution Width 15.4 % (11.5-14.5) Platelet Count 471 x10^3/uL (140-400) Neutrophils (%) (Auto) 74 % (31-73) Lymphocytes (%) (Auto) 14 % (24-48) Monocytes (%) (Auto) 11 % (0-9) Eosinophils (%) (Auto) 1 % (0-3) Basophils (%) (Auto) 0 % (0-3) Neutrophils # (Auto) 6.9 x10^3/uL (1.8-7.7) Lymphocytes # (Auto) 1.3 x10^3/uL (1.0-4.8) Monocytes # (Auto) 1.0 x10^3/uL (0.0-1.1) Eosinophils # (Auto) 0.1 x10^3/uL (0.0-0.7) Basophils # (Auto) 0.0 x10^3/uL (0.0-0.2) Sodium Level 142 mmol/L (136-145) Potassium Level 3.9 mmol/L (3.5-5.1) Chloride Level 107 mmol/L (98-107) Carbon Dioxide Level 27 mmol/L (21-32) Anion Gap 8 (6-14) Blood Urea Nitrogen 7 mg/dL (8-26) Creatinine 0.8 mg/dL (0.7-1.3) Estimated GFR (Cockcroft-Gault) 104.5 Glucose Level 134 mg/dL (70-99) Calcium Level 8.2 mg/dL (8.5-10.1) Micro RUN DATE: 01/02/21 [facility] LAB *LIVE* PAGE 1 RUN TIME: 817 Specimen Inquiry PATIENT: TRINIDAD ORTIZ ACCT: [id number] LOC: [address] [place] [address] U: [id number] AGE/SX: 45/M ROOM: 418 RE12/29/[address]: ALEXUS MCKEON MD : 1975 BED: 1 DIS: STATUS: ADM IN TLOC: SPEC #: [id number] NIKIA: 12/31/20 STATUS: RES REQ #: [id number] RECD: 12/31/[address] [facility] [address]: DONNA WATKINS MD SOURCE: TISSUE ENTR: 12/31/[address] [facility] DR: JONATHAN SCOTT MD [facility]: MASS LINDA,ALEXUS WEINSTEIN,GREGG SNYDER MD ORDERED: CLARISSE/MICHAEL/JONATHAN COMMENTS: Has specimen been collected/obtained? Y RIGHT ISCHIAL NECROTIC TISSUE Procedure Result GRAM STAIN Final Final GRAM NEGATIVE RODS:FEW GRAM POSITIVE COCCI:FEW SQUAMOUS EPI CELL:RARE PMN (WBCs):FEW Unless otherwise specified, Testing Performed by: [address] [address] For Inquires, the Physician may contact the Microbiology department at [phone] ANAEROBIC-AEROBIC CULTURE PENDING CT pelvis IMPRESSION: 1. Soft tissue stranding and gas within the posterior medial right buttock extending to the ischial tuberosity and right perineum and a skin defect within the inferior medial buttock. Correlate for recent debridement in this location or cellulitis and a superimposed gas forming infectious etiology. No drainable fluid collection/abscess is seen. There is no convincing CT evidence of osteomyelitis. Note is made that MRI is more sensitive for osteomyelitis. 2. Suspected reactive right iliac chain and inguinal lymphadenopathy. 3. Mild bilateral hip osteoarthritis and degenerative change involving the lumbar spine 4. Gutierrez catheter within a decompressed bladder. 5. Heterotopic ossification and scarring within the lateral right hip, possibly due to the sequela of remote injury, trochanteric bursitis or prior surgery. Objective: Assessment: Right ischial necrotic wound -Abnormal CT -ESR greater than 100, CRP greater than 200 -Status post bedside I&D on December 31, 2020 Paraplegia Fever pattern improved Hernia repair Neurogenic bladder with Gutierrez in place Plan: Plan of Care Continue daptomycin DC Zosyn and start meropenem Awaiting repeat I&D Monday by plastic surgery Wound care as directed Follow-up labs and cultures Offload Continue supportive care Discussed with nursing staff JAVIER SCOTT MD Jan 02, 2021 08:49
[2021-01-02] MEDS: DAPTOmycin (GENERIC) IVPB 540 MG in IV NORMAL SALINE 50ML 50 ML IV SCH (10:54)
[2021-01-02 11:00] VITALS: BP 133/75
--- NOTE | 2021-01-02 11:11 | PDOC ---
[employer] PROGRESS NOTE Date of Service DOS: DATE: 01/02/21 TIME: 11:05 Chief Complaint Chief Complaint CC: Buttock wound Diabetes hypertension chronic wounds debility pancreatitis chronic pain. History of Present Illness History of Present Illness 01/02 Pt seen and examined. LATOYA RN. Wound has clean and dry intact dressing. Pt awaiting another I and D monday. 01/01 Pt seen and examined. LATOYA RN and LATOYA case management. Wound has clean and dry intact dressing. Patient is in pleasant mood today. 12/31 Pt seen and examined. LATOYA RN and LATOYA case management. Wound has clean and dry intact dressing. Discussed with patient that we will consult Dr. Leigh for surgery. HPI: The patient is a pleasant 45-year-old male who [facility]. He has a buttock wound that is not healing. It is on the right, it is near the ischial region. He has now been transferred [facility] to our facility. He is going to be admitted. Vitals/I&O Vitals/I&O: Vital Signs Date Time Temp Pulse Resp B/P (MAP) Pulse Ox O2 Delivery O2 Flow Rate FiO2 01/02/21 07:00 98.8 89 18 138/77 (97) 96 Room Air 98.8 I & O 01/01/21 01/01/21 01/02/21 15:00 23:00 07:00 Intake Total 400 ml 1050 ml 600 ml Output Total 450 ml 400 ml Balance -50 ml 1050 ml 200 ml Physical Exam Physical Exam: GENERAL: Alert, oriented x 3 male, lying in bed comfortably, in no acute distress. HEENT: Normocephalic, atraumatic. Anicteric. NECK: Supple. No JVD. LUNGS: Clear. HEART: S1, S2. ABDOMEN: Soft, nontender.BS + gutierrez in place EXTREMITIES: No edema. Right large ischial wound necrotic foul smelling, dry eschar present, surrounding erythema. DERM: Warm, dry, no generalized rash except for multiple tattoos. CENTRAL NERVOUS SYSTEM: Alert, oriented, paraplegia, upper ext strength ok PSYCHIATRIC: Calm and cooperative. General: Alert, Oriented X3, Cooperative, No acute distress Heart: Regular rate, Normal S1, Normal S2, No murmurs Lungs: Clear Abdomen: Normal bowel sounds, Soft, No tenderness Extremities: No clubbing, No cyanosis, Other (Large decubitus ulcer right buttock no odor superficial necrosis ) Skin: No rashes, Other (Large decubitus ulcer right buttock no odor superficial necrosis ) Labs Labs: Laboratory Tests Test 01/02/21 04:30 White Blood Count 9.3 x10^3/uL (4.0-11.0) Red Blood Count 3.85 x10^6/uL (4.30-5.70) Hemoglobin 10.4 g/dL (13.0-17.5) Hematocrit 32.5 % (39.0-53.0) Mean Corpuscular Volume 84 fL (79-100) Mean Corpuscular Hemoglobin 27 pg (25-35) Mean Corpuscular Hemoglobin Concent 32 g/dL (31-37) Red Cell Distribution Width 15.4 % (11.5-14.5) Platelet Count 471 x10^3/uL (140-400) Neutrophils (%) (Auto) 74 % (31-73) Lymphocytes (%) (Auto) 14 % (24-48) Monocytes (%) (Auto) 11 % (0-9) Eosinophils (%) (Auto) 1 % (0-3) Basophils (%) (Auto) 0 % (0-3) Neutrophils # (Auto) 6.9 x10^3/uL (1.8-7.7) Lymphocytes # (Auto) 1.3 x10^3/uL (1.0-4.8) Monocytes # (Auto) 1.0 x10^3/uL (0.0-1.1) Eosinophils # (Auto) 0.1 x10^3/uL (0.0-0.7) Basophils # (Auto) 0.0 x10^3/uL (0.0-0.2) Sodium Level 142 mmol/L (136-145) Potassium Level 3.9 mmol/L (3.5-5.1) Chloride Level 107 mmol/L (98-107) Carbon Dioxide Level 27 mmol/L (21-32) Anion Gap 8 (6-14) Blood Urea Nitrogen 7 mg/dL (8-26) Creatinine 0.8 mg/dL (0.7-1.3) Estimated GFR (Cockcroft-Gault) 104.5 Glucose Level 134 mg/dL (70-99) Calcium Level 8.2 mg/dL (8.5-10.1) Review of Systems Review of Systems: Denies Chest pain. Denies SOA. Assessment and Plan Assessmemt and Plan Assessment: CC: Buttock wound. Diabetes hypertension chronic wounds debility pancreatitis chronic pain. Plan: Awaiting another debridement surgery Monday Wound Care Appreciate input on case from subspecialists Continue Antibiotics Trend Labs Continue home meds DVT prophylaxis Pain Management PT/OT Full Code Comment Review of Relevant I have reviewed the following items ale (where applicable) has been applied. Justifications for Admission Other Justification SHANA DAVENPORT III DO Jan 02, 2021 11:11
[2021-01-02] MEDS: MEROPENEM 500 MG in IV NORMAL SALINE 50ML 50 ML IV SCH ×2 (12:07→17:37)
[2021-01-02 15:00] VITALS: BP 130/86
[2021-01-02] MEDS: IV NORMAL SALINE 1000ML BAG 1,000 ML IV SCH (17:39)
[2021-01-02 19:35] VITALS: BP 135/74
[2021-01-02 23:35] VITALS: BP 130/69
[2021-01-03] MEDS: MEROPENEM 500 MG in IV NORMAL SALINE 50ML 50 ML IV SCH ×4 (00:24→17:04)
[2021-01-03 03:13] VITALS: BP 136/70
[2021-01-03] MEDS: IV NORMAL SALINE 1000ML BAG 1,000 ML IV SCH ×2 (06:31→21:27)
[2021-01-03 07:00] VITALS: BP 146/89
[2021-01-03 07:57] LABS: BASO % 0 % (0-3); EOS # 0.2 x10^3/uL (0.0-0.7); EOS % 2 % (0-3); HEMATOCRIT 32.9 % (39.0-53.0); HEMOGLOBIN 10.6 g/dL (13.0-17.5); LYMPH # 1.5 x10^3/uL (1.0-4.8); LYMPH % 17 % (24-48); MEAN CORPUSCULAR HEMOGLOBIN 27 pg (25-35); MEAN CORPUSCULAR HGB CONC 32 g/dL (31-37); MEAN CORPUSCULAR VOLUME 84 fL (79-100); MONO # 0.7 x10^3/uL (0.0-1.1); MONO % 9 % (0-9); NEUT % 72 % (31-73); PLATELET COUNT 485 x10^3/uL (140-400); RED CELL DISTRIBUTION WIDTH 15.5 % (11.5-14.5); WHITE BLOOD COUNT 8.4 x10^3/uL (4.0-11.0)
--- NOTE | 2021-01-03 07:59 | PDOC ---
Infectious Disease Note Subjective: Subjective Patient has no complaints Afebrile last 24 hrs Repeat I&D has been postponed until Monday next week Vital Signs: Vital Signs Vital Signs Date Time Temp Pulse Resp B/P (MAP) Pulse Ox O2 Delivery O2 Flow Rate FiO2 01/03/21 03:13 98.7 92 20 136/70 (92) 95 Room Air 98.7 Physical Exam: PHYSICAL EXAM GENERAL: Alert, oriented x 3 male, lying in bed comfortably, in no acute distress. HEENT: Normocephalic, atraumatic. Anicteric. NECK: Supple. No JVD. LUNGS: Clear. HEART: S1, S2. ABDOMEN: Soft, nontender.BS + gutierrez in place EXTREMITIES: No edema. Right large ischial wound necrotic foul smelling, dry eschar present, surrounding erythema. DERM: Warm, dry, no generalized rash except for multiple tattoos. CENTRAL NERVOUS SYSTEM: Alert, oriented, paraplegia, upper ext strength ok PSYCHIATRIC: Calm and cooperative. Medications: Inpatient Meds: Medications reviewed. Labs: Micro RUN DATE: 01/02/21 [facility] LAB *LIVE* PAGE 1 RUN TIME: 817 Specimen Inquiry PATIENT: TRINIDAD ORTIZ ACCT: [id number] LOC: [address] [place] [address] U: [id number] AGE/SX: 45/M ROOM: [facility] RE12/29/[address]: ALEXUS MCKEON MD : 1975 BED: 1 DIS: STATUS: ADM IN TLOC: SPEC #: [id number] NIKIA: 12/31/20 STATUS: RES REQ #: [id number] RECD: 12/31/[address] [facility] [address]: DONNA WATKINS MD SOURCE: TISSUE ENTR: 12/31/20 [facility] DR: JONATHAN SCOTT MD SPDC: MASS LINDA,DIONI CHEN MD, MD, JAROD J PA ORDERED: ANAER/AEROB/GS COMMENTS: Has specimen been collected/obtained? Y RIGHT ISCHIAL NECROTIC TISSUE Procedure Result GRAM STAIN Final Final GRAM NEGATIVE RODS:FEW GRAM POSITIVE COCCI:FEW SQUAMOUS EPI CELL:RARE PMN (WBCs):FEW Unless otherwise specified, Testing Performed by: [address] [address] For Inquires, the Physician may contact the Microbiology department at [phone] ANAEROBIC-AEROBIC CULTURE PENDING CT pelvis IMPRESSION: 1. Soft tissue stranding and gas within the posterior medial right buttock extending to the ischial tuberosity and right perineum and a skin defect within the inferior medial buttock. Correlate for recent debridement in this location or cellulitis and a superimposed gas forming infectious etiology. No drainable fluid collection/abscess is seen. There is no convincing CT evidence of osteomyelitis. Note is made that MRI is more sensitive for osteomyelitis. 2. Suspected reactive right iliac chain and inguinal lymphadenopathy. 3. Mild bilateral hip osteoarthritis and degenerative change involving the lumbar spine 4. Gutierrez catheter within a decompressed bladder. 5. Heterotopic ossification and scarring within the lateral right hip, possibly due to the sequela of remote injury, trochanteric bursitis or prior surgery. Objective: Assessment: Right ischial necrotic wound -Abnormal CT -ESR greater than 100, CRP greater than 200 -Status post bedside I&D on December 31, 2020 Paraplegia Fever pattern improved Hernia repair Neurogenic bladder with Gutierrez in place Plan: Plan of Care Continue daptomycin, meropenem Awaiting repeat I&D Monday by plastic surgery Wound care as directed Follow-up labs and cultures Offload Continue supportive care Discussed with nursing staff JAVIER SCOTT MD Jan 03, 2021 07:59
[2021-01-03 08:04] LABS: CALCIUM 8.5 mg/dL (8.5-10.1); CREATININE 0.7 mg/dL (0.7-1.3); POTASSIUM 4.1 mmol/L (3.5-5.1)
[2021-01-03] MEDS: LACTOBACILLUS RHAMNOSUS GG 1 CAPSULE. PO SCH ×2 (09:04→21:27)
[2021-01-03] MEDS: MULTIVITAMIN with MINERAL TABLET. PO SCH (09:05)
[2021-01-03 11:00] VITALS: BP 136/79
[2021-01-03] MEDS: DAPTOmycin (GENERIC) IVPB 540 MG in IV NORMAL SALINE 50ML 50 ML IV SCH (11:08)
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
[2021-01-03 15:00] VITALS: BP 134/69
[2021-01-03] MEDS: ACETAMINOPHEN 325 MG TABLET. PO PRN (17:04)
[2021-01-03 19:30] VITALS: BP 117/75
[2021-01-03 23:30] VITALS: BP 148/83
[2021-01-04] MEDS: MEROPENEM 500 MG in IV NORMAL SALINE 50ML 50 ML IV SCH ×5 (00:08→23:50)
[2021-01-04 03:48] VITALS: BP 122/83
[2021-01-04 06:18] LABS: BASO % 0 % (0-3); EOS # 0.2 x10^3/uL (0.0-0.7); EOS % 2 % (0-3); HEMATOCRIT 33.7 % (39.0-53.0); HEMOGLOBIN 10.8 g/dL (13.0-17.5); LYMPH # 1.6 x10^3/uL (1.0-4.8); LYMPH % 18 % (24-48); MEAN CORPUSCULAR HEMOGLOBIN 27 pg (25-35); MEAN CORPUSCULAR HGB CONC 32 g/dL (31-37); MEAN CORPUSCULAR VOLUME 84 fL (79-100); MONO # 0.7 x10^3/uL (0.0-1.1); MONO % 8 % (0-9); NEUT # 6.5 x10^3/uL (1.8-7.7); NEUT % 72 % (31-73); PLATELET COUNT 476 x10^3/uL (140-400); RED BLOOD COUNT 4.01 x10^6/uL (4.30-5.70); RED CELL DISTRIBUTION WIDTH 15.4 % (11.5-14.5); WHITE BLOOD COUNT 9.1 x10^3/uL (4.0-11.0)
[2021-01-04 06:31] LABS: CALCIUM 8.7 mg/dL (8.5-10.1); CREATININE 0.7 mg/dL (0.7-1.3); POTASSIUM 3.9 mmol/L (3.5-5.1)
[2021-01-04 07:00] VITALS: BP 148/76
[2021-01-04] MEDS: LACTOBACILLUS RHAMNOSUS GG 1 CAPSULE. PO SCH ×2 (09:00→21:13)
[2021-01-04] MEDS: MULTIVITAMIN with MINERAL TABLET. PO SCH (09:00)
--- NOTE | 2021-01-04 10:10 | NUR ---
SW following. Discussed with RN, pt from home, room air, regular diet, COVID-19 negative, independent. Possible I&D today. Pt currently on 2 IV abx. PHIL will continue to follow. Addendum: 01/04/21 at [address] Leigh unexpectedly off and will not be able to do surgery for at least a week. Dr. Pablo requesting inpatient transfer. PHIL initiated with [facility]. Awaiting acceptance decision. Clinicals faxed and images clouded.
--- NOTE | 2021-01-04 10:10 | PDOC ---
Infectious Disease Note Subjective: Subjective Patient awaiting repeat I&D by plastic surgery today Patient has been afebrile more than 24 hours Denies fever, nausea, vomiting, shortness of breath, diarrhea, abdominal pain, rash Otherwise as above Vital Signs: Vital Signs Vital Signs Date Time Temp Pulse Resp B/P (MAP) Pulse Ox O2 Delivery O2 Flow Rate FiO2 01/04/21 07:43 Room Air 01/04/21 07:00 97.7 81 16 148/76 (100) 95 97.7 Physical Exam: PHYSICAL EXAM GENERAL: Alert, oriented x 3 male, lying in bed comfortably, in no acute distress. HEENT: Normocephalic, atraumatic. Anicteric. NECK: Supple. No JVD. LUNGS: Clear. HEART: S1, S2. ABDOMEN: Soft, nontender.BS + gutierrez in place EXTREMITIES: No edema. Right large ischial wound necrotic foul smelling, dry eschar present, surrounding erythema. DERM: Warm, dry, no generalized rash except for multiple tattoos. CENTRAL NERVOUS SYSTEM: Alert, oriented, paraplegia, upper ext strength ok PSYCHIATRIC: Calm and cooperative. Medications: Inpatient Meds: Medications reviewed. Labs: Lab Laboratory Tests Test 01/04/21 05:05 White Blood Count 9.1 x10^3/uL (4.0-11.0) Red Blood Count 4.01 x10^6/uL (4.30-5.70) Hemoglobin 10.8 g/dL (13.0-17.5) Hematocrit 33.7 % (39.0-53.0) Mean Corpuscular Volume 84 fL (79-100) Mean Corpuscular Hemoglobin 27 pg (25-35) Mean Corpuscular Hemoglobin Concent 32 g/dL (31-37) Red Cell Distribution Width 15.4 % (11.5-14.5) Platelet Count 476 x10^3/uL (140-400) Neutrophils (%) (Auto) 72 % (31-73) Lymphocytes (%) (Auto) 18 % (24-48) Monocytes (%) (Auto) 8 % (0-9) Eosinophils (%) (Auto) 2 % (0-3) Basophils (%) (Auto) 0 % (0-3) Neutrophils # (Auto) 6.5 x10^3/uL (1.8-7.7) Lymphocytes # (Auto) 1.6 x10^3/uL (1.0-4.8) Monocytes # (Auto) 0.7 x10^3/uL (0.0-1.1) Eosinophils # (Auto) 0.2 x10^3/uL (0.0-0.7) Basophils # (Auto) 0.0 x10^3/uL (0.0-0.2) Sodium Level 140 mmol/L (136-145) Potassium Level 3.9 mmol/L (3.5-5.1) Chloride Level 105 mmol/L (98-107) Carbon Dioxide Level 31 mmol/L (21-32) Anion Gap 4 (6-14) Blood Urea Nitrogen 5 mg/dL (8-26) Creatinine 0.7 mg/dL (0.7-1.3) Estimated GFR (Cockcroft-Gault) 122.0 Glucose Level 120 mg/dL (70-99) Calcium Level 8.7 mg/dL (8.5-10.1) Micro RUN DATE: 01/02/21 [facility] LAB *LIVE* PAGE 1 RUN TIME: 817 Specimen Inquiry ------ ------ PATIENT: TRINIDAD ORTIZ ACCT: [id number] LOC: [address] [place] [address] U: [id number] AGE/SX: 45/M ROOM: 418 RE12/29/[address]: ALEXUS MCKEON MD : 1975 BED: 1 DIS: STATUS: ADM IN TLOC: SPEC #: [id number] NIKIA: 12/31/20 STATUS: RES REQ #: [id number] RECD: 12/31/[address] [facility] [address]: DONNA WATKINS MD SOURCE: TISSUE ENTR: 12/31/20 [facility] DR: JONATHAN SCOTT MD SPDC: MASS LINDA,DIONI CHEN MD, MD, JAROD J PA ORDERED: ANAER/AEROB/GS COMMENTS: Has specimen been collected/obtained? Y RIGHT ISCHIAL NECROTIC TISSUE Procedure Result GRAM STAIN Final Final GRAM NEGATIVE RODS:FEW GRAM POSITIVE COCCI:FEW SQUAMOUS EPI CELL:RARE PMN (WBCs):FEW Unless otherwise specified, Testing Performed by: [address] [address] For Inquires, the Physician may contact the Microbiology department at [phone] ANAEROBIC-AEROBIC CULTURE PENDING CT pelvis IMPRESSION: 1. Soft tissue stranding and gas within the posterior medial right buttock extending to the ischial tuberosity and right perineum and a skin defect within the inferior medial buttock. Correlate for recent debridement in this location or cellulitis and a superimposed gas forming infectious etiology. No drainable fluid collection/abscess is seen. There is no convincing CT evidence of osteomyelitis. Note is made that MRI is more sensitive for osteomyelitis. 2. Suspected reactive right iliac chain and inguinal lymphadenopathy. 3. Mild bilateral hip osteoarthritis and degenerative change involving the lumbar spine 4. Gutierrez catheter within a decompressed bladder. 5. Heterotopic ossification and scarring within the lateral right hip, possibly due to the sequela of remote injury, trochanteric bursitis or prior surgery. Objective: Assessment: Right ischial necrotic wound -Abnormal CT -ESR greater than 100, CRP greater than 200 -Status post bedside I&D on December 31, 2020 Paraplegia Fever pattern improved Hernia repair Neurogenic bladder with Gutierrez in place Plan: Plan of Care Continue daptomycin, meropenem Awaiting repeat I&D today Wound care as directed Follow-up labs and cultures Offload Continue supportive care Discussed with nursing staff JAVIER SCOTT MD Jan 04, 2021 10:10
[2021-01-04] MEDS: IV NORMAL SALINE 1000ML BAG 1,000 ML IV SCH (10:50)
[2021-01-04 11:00] VITALS: BP 139/86
--- NOTE | 2021-01-04 11:56 | NUR ---
Report given to JUDI Preston at this time.
[2021-01-04] MEDS: DAPTOmycin (GENERIC) IVPB 540 MG in IV NORMAL SALINE 50ML 50 ML IV SCH (12:11)
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
[2021-01-04 15:00] VITALS: BP 109/68
--- NOTE | 2021-01-04 15:44 | NUR ---
Wound Care: Pt's nurse had changed dressing already today. Plan to follow up with patient 01/05.
[2021-01-04 19:00] VITALS: BP 98/68
[2021-01-04] MEDS: ACETAMINOPHEN 325 MG TABLET. PO PRN (19:23)
[2021-01-04 23:00] VITALS: BP 100/57
[2021-01-05] MEDS: IV NORMAL SALINE 1000ML BAG 1,000 ML IV SCH ×2 (01:05→13:30)
[2021-01-05 03:00] VITALS: BP 114/64
[2021-01-05 04:48] LABS: BASO # 0.1 x10^3/uL (0.0-0.2); BASO % 1 % (0-3); EOS # 0.1 x10^3/uL (0.0-0.7); EOS % 1 % (0-3); HEMATOCRIT 33.2 % (39.0-53.0); HEMOGLOBIN 10.7 g/dL (13.0-17.5); LYMPH # 2.1 x10^3/uL (1.0-4.8); LYMPH % 19 % (24-48); MEAN CORPUSCULAR HEMOGLOBIN 27 pg (25-35); MEAN CORPUSCULAR HGB CONC 32 g/dL (31-37); MEAN CORPUSCULAR VOLUME 84 fL (79-100); MONO % 9 % (0-9); NEUT # 7.5 x10^3/uL (1.8-7.7); NEUT % 70 % (31-73); PLATELET COUNT 494 x10^3/uL (140-400); RED BLOOD COUNT 3.97 x10^6/uL (4.30-5.70); RED CELL DISTRIBUTION WIDTH 15.1 % (11.5-14.5); WHITE BLOOD COUNT 10.8 x10^3/uL (4.0-11.0)
[2021-01-05 05:09] LABS: CALCIUM 8.4 mg/dL (8.5-10.1); CREATININE 0.8 mg/dL (0.7-1.3); GFR 104.5; POTASSIUM 3.8 mmol/L (3.5-5.1)
[2021-01-05] MEDS: MEROPENEM 500 MG in IV NORMAL SALINE 50ML 50 ML IV SCH ×3 (06:09→17:31)
[2021-01-05 07:00] VITALS: BP 113/73
--- NOTE | 2021-01-05 08:16 | PDOC ---
Infectious Disease Note Subjective: Subjective Patient could not undergo repeat I&D yesterday by plastic surgery Remains febrile no other complaints Vital Signs: Vital Signs Vital Signs Date Time Temp Pulse Resp B/P (MAP) Pulse Ox O2 Delivery O2 Flow Rate FiO2 01/05/21 07:00 98.3 90 18 113/73 (86) 96 Room Air 98.3 Physical Exam: PHYSICAL EXAM GENERAL: Alert, oriented x 3 male, lying in bed comfortably, in no acute distress. HEENT: Normocephalic, atraumatic. Anicteric. NECK: Supple. No JVD. LUNGS: Clear. HEART: S1, S2. ABDOMEN: Soft, nontender.BS + Jackson removed EXTREMITIES: No edema. Right large ischial wound necrotic foul smelling, dry eschar present, surrounding erythema. DERM: Warm, dry, no generalized rash except for multiple tattoos. CENTRAL NERVOUS SYSTEM: Alert, oriented, paraplegia, upper ext strength ok PSYCHIATRIC: Calm and cooperative. Medications: Inpatient Meds: Medications reviewed. Labs: Lab Laboratory Tests Test 01/05/21 03:45 White Blood Count 10.8 x10^3/uL (4.0-11.0) Red Blood Count 3.97 x10^6/uL (4.30-5.70) Hemoglobin 10.7 g/dL (13.0-17.5) Hematocrit 33.2 % (39.0-53.0) Mean Corpuscular Volume 84 fL (79-100) Mean Corpuscular Hemoglobin 27 pg (25-35) Mean Corpuscular Hemoglobin Concent 32 g/dL (31-37) Red Cell Distribution Width 15.1 % (11.5-14.5) Platelet Count 494 x10^3/uL (140-400) Neutrophils (%) (Auto) 70 % (31-73) Lymphocytes (%) (Auto) 19 % (24-48) Monocytes (%) (Auto) 9 % (0-9) Eosinophils (%) (Auto) 1 % (0-3) Basophils (%) (Auto) 1 % (0-3) Neutrophils # (Auto) 7.5 x10^3/uL (1.8-7.7) Lymphocytes # (Auto) 2.1 x10^3/uL (1.0-4.8) Monocytes # (Auto) 1.0 x10^3/uL (0.0-1.1) Eosinophils # (Auto) 0.1 x10^3/uL (0.0-0.7) Basophils # (Auto) 0.1 x10^3/uL (0.0-0.2) Sodium Level 141 mmol/L (136-145) Potassium Level 3.8 mmol/L (3.5-5.1) Chloride Level 106 mmol/L (98-107) Carbon Dioxide Level 29 mmol/L (21-32) Anion Gap 6 (6-14) Blood Urea Nitrogen 9 mg/dL (8-26) Creatinine 0.8 mg/dL (0.7-1.3) Estimated GFR (Cockcroft-Gault) 104.5 Glucose Level 126 mg/dL (70-99) Calcium Level 8.4 mg/dL (8.5-10.1) Micro - RUN DATE: 01/04/21 [facility] *LIVE* PAGE 1 RUN TIME: 1302 Specimen Inquiry - PATIENT: TRINIDAD ORTIZ ACCT: [id number] LOC: [address] [place] [address] U: [id number] AGE/SX: 45/M ROOM: 418 RE12/29/[address]: ALEXUS MCKEON MD : 1975 BED: 1 DIS: STATUS: ADM IN TLOC: SPEC #: [id number] NIKIA: 12/31/20 STATUS: RES REQ #: [id number] RECD: 12/31/[address] [facility] [address]: DONNA WATKINS MD SOURCE: TISSUE ENTR: 12/31/[address] [facility] [address]: JONATHAN SCOTT MD [facility]: ALEXUS SUNSHINE MD, STEPHEN J MD MARCOTTE, JAROD J PA ORDERED: ANAER/AERBENNETT/JONATHAN COMMENTS: Has specimen been collected/obtained? Y RIGHT ISCHIAL NECROTIC TISSUE ------- ----- Procedure Result GRAM STAIN Final Final GRAM NEGATIVE RODS:FEW GRAM POSITIVE COCCI:FEW SQUAMOUS EPI CELL:RARE PMN (WBCs):FEW Unless otherwise specified, Testing Performed by: [address] [address] For Inquires, the Physician may contact the Microbiology department at [phone] ANAEROBIC-AEROBIC CULTURE Preliminary Preliminary MIXED AEROBIC AND ANAEROBIC JOSE MARTIN on 01/03/21 at 1348 INCLUDING: MODERATE GRAM NEGATIVE RODS on 01/02/21 at 1453 FINAL ID= [PSEUDOMONAS AERUGINOSA] FEW GRAM POSITIVE COCCI on 01/02/21 at 1454 FINAL ID= [ENTEROCOCCUS FAECALIS] MODERATE [BACTEROIDES OVATUS GROUP] MODERATE [BACTEROIDES VULGATUS GROUP] MODERATE ATOPOBIUM SPECIES PSEUDOMONAS AERUGINOSA ENTEROCOCCUS FAECALIS UNIDENTIFIED ORGANISM BACTEROIDES OVATUS GROUP BACTEROIDES VULGATUS GROUP ANTIMICROBIAL SUSCEPTIBILITY Preliminary Comment Comment CONTINUED ON NEXT PAGE RUN DATE: 01/04/21 [facility] *LIVE* PAGE 2 RUN TIME: 1302 Specimen Inquiry SPEC: [id number] PATIENT: ANGELTRINIDAD [id number] (Continued) Procedure Result - ANTIMICROBIAL SUSCEPTIBILITY Preliminary (continued) NEG TONY 56 PSEUDOMONAS AERUGINOSA ANTIBIOTIC RESULT INTERPRETATION AMIKACIN <=16 S AZTREONAM <=4 S CEFTAZIDIME 4 S CIPROFLOXACIN <=0.25 S CEFEPIME <=2 S CEFTAZIDIME/AVIBACTAM <=4 S GENTAMICIN <=2 S LEVOFLOXACIN <=0.5 S MEROPENEM <=1 S PIPERACILLIN/TAZOBACTAM <=8 S TOBRAMYCIN <=2 S Streptomycin Synergy Screen S Gentamicin Synergy Screen S POS TONY TYPE 38 ENTEROCOCCUS FAECALIS ANTIBIOTIC RESULT INTERPRETATION AMPICILLIN <=2 S DAPTOMYCIN 1 S LINEZOLID 2 S PENICILLIN 2 S VANCOMYCIN 2 S Unless otherwise specified, Testing Performed by: [place] [address] For Inquires, the Physician may contact the Microbiology department at [phone] -------- ---- Objective: Assessment: Right ischial necrotic wound -Abnormal CT -ESR greater than 100, CRP greater than 200 -Status post bedside I&D on December 31, 2020 -Swab cultures positive for Pseudomonas aeruginosa and Enterococcus faecalis Paraplegia Fever History of hernia repair Neurogenic bladder with self cath Plan: Plan of Care Continue daptomycin, meropenem Monitor CPK Plastic surgery is not available for 1 week per team at this center Awaiting transfer to tertiary care center with plastic coverage as patient would need I&D Send intraoperative tissue for cultures Offload Wound care as directed Follow-up labs and cultures Continue supportive care Discussed with nursing staff JAVIER SCOTT MD Jan 05, 2021 08:16
[2021-01-05] MEDS: MULTIVITAMIN with MINERAL TABLET. PO SCH (08:26)
[2021-01-05] MEDS: LACTOBACILLUS RHAMNOSUS GG 1 CAPSULE. PO SCH ×2 (08:26→21:42)
[2021-01-05] MEDS: DAPTOmycin (GENERIC) IVPB 540 MG in IV NORMAL SALINE 50ML 50 ML IV SCH (10:28)
[2021-01-05] MEDS ORDERED: DEXTROSE 50% 25 GM / 50ML DISP.SYRIN. IV PRN (10:45)
[2021-01-05 11:00] VITALS: BP 138/81
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
[2021-01-05] MEDS: INSULIN LISPRO 300 UNITS/3 ML VIAL. SQ SCH ×2 (12:00→17:00)
--- NOTE | 2021-01-05 12:02 | NUR ---
SW following. Discussed with RN, Dr. Pablo spoke with [facility] - they want pt to be seen by the general surgeon and then speak with [facility] again. Pending surgeon eval. SW will continue to follow.
--- NOTE | 2021-01-05 14:40 | PDOC ---
SURGICAL PROGRESS NOTE DATE: 01/05/21 TIME: 14:36 Subjective asked to see due to plastics unavailable d/w IPC there is consideration of [facility] tx for plastics involvement was scheduled for debridement with plastics, now unavailable--flap in future per IPC discussion Vital Signs Vital Signs Date Time Temp Pulse Resp B/P (MAP) Pulse Ox O2 Delivery O2 Flow Rate FiO2 01/05/21 11:00 97.4 82 18 138/81 (100) 96 Room Air 97.4 I&O Intake and Output 01/05/21 06:59 Intake Total 990 ml Output Total 500 ml Balance 490 ml Intake Oral 240 ml IV Total 375 ml Other 375 ml Output Urine Total 500 ml General: Alert, Cooperative Skin: Other (wound bed fairly clean, drainage bloody, non purulent ) Labs Laboratory Tests Test 01/04/21 05:05 01/05/21 03:45 01/05/21 12:03 White Blood Count 9.1 x10^3/uL (4.0-11.0) 10.8 x10^3/uL (4.0-11.0) Red Blood Count 4.01 x10^6/uL (4.30-5.70) 3.97 x10^6/uL (4.30-5.70) Hemoglobin 10.8 g/dL (13.0-17.5) 10.7 g/dL (13.0-17.5) Hematocrit 33.7 % (39.0-53.0) 33.2 % (39.0-53.0) Mean Corpuscular Volume 84 fL (79-100) 84 fL (79-100) Mean Corpuscular Hemoglobin 27 pg (25-35) 27 pg (25-35) Mean Corpuscular Hemoglobin Concent 32 g/dL (31-37) 32 g/dL (31-37) Red Cell Distribution Width 15.4 % (11.5-14.5) 15.1 % (11.5-14.5) Platelet Count 476 x10^3/uL (140-400) 494 x10^3/uL (140-400) Neutrophils (%) (Auto) 72 % (31-73) 70 % (31-73) Lymphocytes (%) (Auto) 18 % (24-48) 19 % (24-48) Monocytes (%) (Auto) 8 % (0-9) 9 % (0-9) Eosinophils (%) (Auto) 2 % (0-3) 1 % (0-3) Basophils (%) (Auto) 0 % (0-3) 1 % (0-3) Neutrophils # (Auto) 6.5 x10^3/uL (1.8-7.7) 7.5 x10^3/uL (1.8-7.7) Lymphocytes # (Auto) 1.6 x10^3/uL (1.0-4.8) 2.1 x10^3/uL (1.0-4.8) Monocytes # (Auto) 0.7 x10^3/uL (0.0-1.1) 1.0 x10^3/uL (0.0-1.1) Eosinophils # (Auto) 0.2 x10^3/uL (0.0-0.7) 0.1 x10^3/uL (0.0-0.7) Basophils # (Auto) 0.0 x10^3/uL (0.0-0.2) 0.1 x10^3/uL (0.0-0.2) Sodium Level 140 mmol/L (136-145) 141 mmol/L (136-145) Potassium Level 3.9 mmol/L (3.5-5.1) 3.8 mmol/L (3.5-5.1) Chloride Level 105 mmol/L (98-107) 106 mmol/L (98-107) Carbon Dioxide Level 31 mmol/L (21-32) 29 mmol/L (21-32) Anion Gap 4 (6-14) 6 (6-14) Blood Urea Nitrogen 5 mg/dL (8-26) 9 mg/dL (8-26) Creatinine 0.7 mg/dL (0.7-1.3) 0.8 mg/dL (0.7-1.3) Estimated GFR (Cockcroft-Gault) 122.0 104.5 Glucose Level 120 mg/dL (70-99) 126 mg/dL (70-99) Calcium Level 8.7 mg/dL (8.5-10.1) 8.4 mg/dL (8.5-10.1) Glucose (Fingerstick) 127 mg/dL (70-99) Laboratory Tests Test 01/05/21 03:45 01/05/21 12:03 White Blood Count 10.8 x10^3/uL (4.0-11.0) Red Blood Count 3.97 x10^6/uL (4.30-5.70) Hemoglobin 10.7 g/dL (13.0-17.5) Hematocrit 33.2 % (39.0-53.0) Mean Corpuscular Volume 84 fL (79-100) Mean Corpuscular Hemoglobin 27 pg (25-35) Mean Corpuscular Hemoglobin Concent 32 g/dL (31-37) Red Cell Distribution Width 15.1 % (11.5-14.5) Platelet Count 494 x10^3/uL (140-400) Neutrophils (%) (Auto) 70 % (31-73) Lymphocytes (%) (Auto) 19 % (24-48) Monocytes (%) (Auto) 9 % (0-9) Eosinophils (%) (Auto) 1 % (0-3) Basophils (%) (Auto) 1 % (0-3) Neutrophils # (Auto) 7.5 x10^3/uL (1.8-7.7) Lymphocytes # (Auto) 2.1 x10^3/uL (1.0-4.8) Monocytes # (Auto) 1.0 x10^3/uL (0.0-1.1) Eosinophils # (Auto) 0.1 x10^3/uL (0.0-0.7) Basophils # (Auto) 0.1 x10^3/uL (0.0-0.2) Sodium Level 141 mmol/L (136-145) Potassium Level 3.8 mmol/L (3.5-5.1) Chloride Level 106 mmol/L (98-107) Carbon Dioxide Level 29 mmol/L (21-32) Anion Gap 6 (6-14) Blood Urea Nitrogen 9 mg/dL (8-26) Creatinine 0.8 mg/dL (0.7-1.3) Estimated GFR (Cockcroft-Gault) 104.5 Glucose Level 126 mg/dL (70-99) Calcium Level 8.4 mg/dL (8.5-10.1) Glucose (Fingerstick) 127 mg/dL (70-99) Problem List wound care and FU with plastics no immediate needs for general surgery to debride Justicifation of Admission Dx: Justifications for Admission: Justification of Admission Dx: Yes Comments: wound ANAT MOLINA CLINICAL EDITOR Jan 05, 2021 14:40
--- NOTE | 2021-01-05 14:59 | NUR ---
Wound/Ostomy Care Wound Type/Assessment: Patient seen per wound care for follow up dressing change. Wound cleansed, assessed, measured, and pictured. Patient underwent a minimal bedside debridement last with Dr. Leigh however she is currently ill and unable to continue POC with surgical debridement. Treatment Recommendations/Plan: cleanse wound, pack with dakins soaked gauze and cover with abd and tape, change daily and prn. Dressing applied and patient tolerated well. No other wounds noted. Education provided: pt educated on PU offloading, turn q2h right to left only, sitting on laying on back only for meals. Offloading surface/device: Patient currently has a purple wedge and P500 bed. Recommended Referrals/Tests: N/A Discharge Recommendations for dressings: Continue current treatment and we will continue to follow patient for possible debridement. Bed lowered and call light in reach.
[2021-01-05 15:00] VITALS: BP 121/69
--- NOTE | 2021-01-05 17:00 | NUR ---
unable to place PICC line in rt basilic vein. notified pt's nurse. pt tolerated the attempt well. no bleeding noted at site after manual pressure x 5 minutes.
--- NOTE | 2021-01-05 17:04 | NUR ---
Allergies and reactions nkda INR 1.2 BUN 9 Cr 0.8 Platelets 494 Blood culture done yes blood culture results no growth Order Verified yes Consent signed yes Previous PICC placement yes Past Medical/Surgical history and current diagnosis reviewed yes Patient Medical /Surgical History Related to PICC line placement Deep Vein Thrombosis (DVT)-previous Infectious Disease consult Past central line or venous access device placement Special considerations for PICC line placement Infections PICC placement indication long term care social worker antibiotic usage, Mei Negrete RN PICC Nurse Addendum: 01/05/21 at 1716 by MEI NEGRETE RN Amended: Links added.
--- NOTE | 2021-01-05 17:08 | NUR ---
Procedure: Following complete explanation of the PICC procedure including the indications, risks, and potential complications, informed consent was obtained. The possibility for infection was discussed along with signs, symptoms, and prevention. All the questions were answered.yes Written and verbal patient education was provided. yes Hand hygiene performed. yes Standardized central line checklist was utilized.yes The patient was placed in the supine position, the arm was prepped with chlorhexidine and patient draped with maximum sterile barrier. 2 mL 1% lidocaine was infiltrated into the skin to provide local anesthesia. A thorough assessment of right upper extremity completed. Using real-time ultrasound guidance and standardized micro puncture set, the basilic vein was punctured and a peel away sheath was placed using the modified Seldinger technique. A tip location device was used to ensure adequate catheter placement.unable to advance the PICC catheter past the shoulder area times multiple attempts despite the wire sliding easily in place Patient tolerated the procedure without apparent complication(s). Complications: unable to advance the PICC catheter past the shoulder area times multiple attempts despite the wire sliding easily in place Addendum: 01/05/21 at 1716 by TRACE COLLAZO RN Amended: Links added.
[2021-01-05 19:00] VITALS: BP 148/79
[2021-01-05 22:56] VITALS: BP 149/64
[2021-01-06] VITALS (9 sets, daily range): BP systolic 85–160; BP diastolic 40–85
[2021-01-06] MEDS: IV NORMAL SALINE 1000ML BAG 1,000 ML IV SCH ×2 (02:46→17:49)
[2021-01-06 05:12] LABS: BASO # 0.1 x10^3/uL (0.0-0.2); BASO % 1 % (0-3); EOS # 0.2 x10^3/uL (0.0-0.7); EOS % 3 % (0-3); HEMATOCRIT 33.4 % (39.0-53.0); HEMOGLOBIN 10.8 g/dL (13.0-17.5); LYMPH # 2.2 x10^3/uL (1.0-4.8); LYMPH % 28 % (24-48); MEAN CORPUSCULAR HEMOGLOBIN 27 pg (25-35); MEAN CORPUSCULAR HGB CONC 32 g/dL (31-37); MEAN CORPUSCULAR VOLUME 84 fL (79-100); MONO # 0.7 x10^3/uL (0.0-1.1); MONO % 10 % (0-9); NEUT # 4.6 x10^3/uL (1.8-7.7); NEUT % 59 % (31-73); PLATELET COUNT 481 x10^3/uL (140-400); RED BLOOD COUNT 3.96 x10^6/uL (4.30-5.70); RED CELL DISTRIBUTION WIDTH 15.6 % (11.5-14.5); WHITE BLOOD COUNT 7.8 x10^3/uL (4.0-11.0)
[2021-01-06 05:52] LABS: CALCIUM 8.6 mg/dL (8.5-10.1); CREATININE 0.6 mg/dL (0.7-1.3); GFR 145.7; POTASSIUM 4.1 mmol/L (3.5-5.1)
[2021-01-06] MEDS: MEROPENEM 500 MG in IV NORMAL SALINE 50ML 50 ML IV SCH ×5 (06:16→23:40)
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
[2021-01-06] MEDS: INSULIN LISPRO 300 UNITS/3 ML VIAL. SQ SCH ×3 (08:00→17:00)
[2021-01-06] MEDS: LACTOBACILLUS RHAMNOSUS GG 1 CAPSULE. PO SCH ×2 (08:13→22:12)
[2021-01-06] MEDS: MULTIVITAMIN with MINERAL TABLET. PO SCH (08:13)
--- NOTE | 2021-01-06 08:56 | PDOC ---
Infectious Disease Note Subjective: Subjective Patient without complaints Afebrile Requesting to be discharged home today as surgery has been postponed to next week Denies fever, chills, nausea, vomiting, diarrhea, abdominal pain Vital Signs: Vital Signs Vital Signs Date Time Temp Pulse Resp B/P (MAP) Pulse Ox O2 Delivery O2 Flow Rate FiO2 01/06/21 07:00 97.6 84 17 160/85 (110) 95 Room Air 97.6 Physical Exam: PHYSICAL EXAM GENERAL: Alert, oriented x 3 male, lying in bed comfortably, in no acute distress. HEENT: Normocephalic, atraumatic. Anicteric. NECK: Supple. No JVD. LUNGS: Clear. HEART: S1, S2. ABDOMEN: Soft, nontender.BS + Jackson removed EXTREMITIES: No edema. Right large ischial wound necrotic foul smelling, dry eschar present, surrounding erythema. DERM: Warm, dry, no generalized rash except for multiple tattoos. CENTRAL NERVOUS SYSTEM: Alert, oriented, paraplegia, upper ext strength ok PSYCHIATRIC: Calm and cooperative. Medications: Inpatient Meds: Medications reviewed. Labs: Lab Laboratory Tests Test 01/05/21 12:03 01/05/21 17:02 01/05/21 20:38 01/06/21 04:40 Glucose (Fingerstick) 127 mg/dL (70-99) 97 mg/dL (70-99) 125 mg/dL (70-99) White Blood Count 7.8 x10^3/uL (4.0-11.0) Red Blood Count 3.96 x10^6/uL (4.30-5.70) Hemoglobin 10.8 g/dL (13.0-17.5) Hematocrit 33.4 % (39.0-53.0) Mean Corpuscular Volume 84 fL (79-100) Mean Corpuscular Hemoglobin 27 pg (25-35) Mean Corpuscular Hemoglobin Concent 32 g/dL (31-37) Red Cell Distribution Width 15.6 % (11.5-14.5) Platelet Count 481 x10^3/uL (140-400) Neutrophils (%) (Auto) 59 % (31-73) Lymphocytes (%) (Auto) 28 % (24-48) Monocytes (%) (Auto) 10 % (0-9) Eosinophils (%) (Auto) 3 % (0-3) Basophils (%) (Auto) 1 % (0-3) Neutrophils # (Auto) 4.6 x10^3/uL (1.8-7.7) Lymphocytes # (Auto) 2.2 x10^3/uL (1.0-4.8) Monocytes # (Auto) 0.7 x10^3/uL (0.0-1.1) Eosinophils # (Auto) 0.2 x10^3/uL (0.0-0.7) Basophils # (Auto) 0.1 x10^3/uL (0.0-0.2) Sodium Level 141 mmol/L (136-145) Potassium Level 4.1 mmol/L (3.5-5.1) Chloride Level 108 mmol/L (98-107) Carbon Dioxide Level 26 mmol/L (21-32) Anion Gap 7 (6-14) Blood Urea Nitrogen 9 mg/dL (8-26) Creatinine 0.6 mg/dL (0.7-1.3) Estimated GFR (Cockcroft-Gault) 145.7 Glucose Level 126 mg/dL (70-99) Calcium Level 8.6 mg/dL (8.5-10.1) Test 01/06/21 07:28 Glucose (Fingerstick) 127 mg/dL (70-99) Micro RUN DATE: 01/04/21 [facility] *LIVE* PAGE 1 RUN TIME: 1302 Specimen Inquiry PATIENT: ORTIZ,TRINIDAD W ACCT: [id number] LOC: [address] [place] [address] U: [id number] AGE/SX: 45/M ROOM: 418 RE12/29/[address]: ALEXUS MCKEON MD : 1975 BED: 1 DIS: STATUS: ADM IN TLOC: SPEC #: [id number] NIKIA: 12/31/20 STATUS: RES REQ #: [id number] RECD: 12/31/[address]: DONNA WATKINS MD SOURCE: TISSUE ENTR: 12/31/[address]: JONATHAN SCOTT MD SPDC: MASS ALEXUS MCKEON MD, STEPHEN J MD MARCOTTE, JAROD J PA ORDERED: ANAER/MICHAEL/JONATHAN COMMENTS: Has specimen been collected/obtained? Y RIGHT ISCHIAL NECROTIC TISSUE Procedure Result GRAM STAIN Final Final GRAM NEGATIVE RODS:FEW GRAM POSITIVE COCCI:FEW SQUAMOUS EPI CELL:RARE PMN (WBCs):FEW Unless otherwise specified, Testing Performed by: [facility] [address] [place] [address] For Inquires, the Physician may contact the Microbiology department at [phone] ANAEROBIC-AEROBIC CULTURE Preliminary Preliminary MIXED AEROBIC AND ANAEROBIC JOSE MARTIN on 01/03/21 at 1348 INCLUDING: MODERATE GRAM NEGATIVE RODS on 01/02/21 at 1453 FINAL ID= [PSEUDOMONAS AERUGINOSA] FEW GRAM POSITIVE COCCI on 01/02/21 at 1454 FINAL ID= [ENTEROCOCCUS FAECALIS] MODERATE [BACTEROIDES OVATUS GROUP] MODERATE [BACTEROIDES VULGATUS GROUP] MODERATE ATOPOBIUM SPECIES PSEUDOMONAS AERUGINOSA ENTEROCOCCUS FAECALIS UNIDENTIFIED ORGANISM BACTEROIDES OVATUS GROUP BACTEROIDES VULGATUS GROUP ANTIMICROBIAL SUSCEPTIBILITY Preliminary Comment Comment CONTINUED ON NEXT PAGE RUN DATE: 01/04/21 [facility] *LIVE* PAGE 2 RUN TIME: 1302 Specimen Inquiry SPEC: [id number] PATIENT: TRINIDAD ORTIZ Vangie [id number] (Continued) Procedure Result ANTIMICROBIAL SUSCEPTIBILITY Preliminary (continued) NEG TONY 56 PSEUDOMONAS AERUGINOSA ANTIBIOTIC RESULT INTERPRETATION AMIKACIN <=16 S AZTREONAM <=4 S CEFTAZIDIME 4 S CIPROFLOXACIN <=0.25 S CEFEPIME <=2 S CEFTAZIDIME/AVIBACTAM <=4 S GENTAMICIN <=2 S LEVOFLOXACIN <=0.5 S MEROPENEM <=1 S PIPERACILLIN/TAZOBACTAM <=8 S TOBRAMYCIN <=2 S Streptomycin Synergy Screen S Gentamicin Synergy Screen S POS TONY TYPE 38 ENTEROCOCCUS FAECALIS ANTIBIOTIC RESULT INTERPRETATION AMPICILLIN <=2 S DAPTOMYCIN 1 S LINEZOLID 2 S PENICILLIN 2 S VANCOMYCIN 2 S Unless otherwise specified, Testing Performed by: [address] [address] For Inquires, the Physician may contact the Microbiology department at [phone] Objective: Assessment: Right ischial necrotic wound -Abnormal CT -ESR greater than 100, CRP greater than 200 -Status post bedside I&D on December 31, 2020 -Swab cultures positive for Pseudomonas aeruginosa and Enterococcus faecalis Paraplegia Fever History of hernia repair Neurogenic bladder with self cath Plan: Plan of Care Patient would need surgery as antibiotics alone will not be optimal Patient wants to be discharged home as no surgery is planned until next week Plastics is not available at this center foe one week Gen surgery does not plan to do I and D Pros and cons discussed Risk of worsening infection including sepsis discussed He still wants to be discharged home today after PICC line placement Continue daptomycin, meropenem Offload Wound care as directed DR Pablo is trying to get him transferred to [facility] Continue supportive care JAVIER SCOTT MD Jan 06, 2021 08:56
[2021-01-06] MEDS: DAPTOmycin (GENERIC) IVPB 540 MG in IV NORMAL SALINE 50ML 50 ML IV SCH (11:25)
--- NOTE | 2021-01-06 12:49 | NUR ---
SW following. Discussed with RN, SW attempted transfer to [facility] today, no beds at this time, advised to call back between [phone]. Dr. Pablo notified. PHIL will continue to follow.
[2021-01-06] MEDS: ACETAMINOPHEN 325 MG TABLET. PO PRN (22:11)
[2021-01-07] VITALS (7 sets, daily range): BP systolic 93–118; BP diastolic 54–72
[2021-01-07] MEDS: IV NORMAL SALINE 1000ML BAG 1,000 ML IV SCH ×2 (06:15→18:50)
[2021-01-07] MEDS: MEROPENEM 500 MG in IV NORMAL SALINE 50ML 50 ML IV SCH ×4 (06:16→23:24)
[2021-01-07 06:35] LABS: CALCIUM 8.5 mg/dL (8.5-10.1); CREATININE 0.6 mg/dL (0.7-1.3); GFR 145.7; POTASSIUM 4.1 mmol/L (3.5-5.1)
[2021-01-07 06:46] LABS: BASO % 1 % (0-3); EOS # 0.2 x10^3/uL (0.0-0.7); EOS % 2 % (0-3); HEMATOCRIT 32.1 % (39.0-53.0); HEMOGLOBIN 10.3 g/dL (13.0-17.5); LYMPH # 1.9 x10^3/uL (1.0-4.8); LYMPH % 20 % (24-48); MEAN CORPUSCULAR HEMOGLOBIN 27 pg (25-35); MEAN CORPUSCULAR HGB CONC 32 g/dL (31-37); MEAN CORPUSCULAR VOLUME 84 fL (79-100); MONO # 0.8 x10^3/uL (0.0-1.1); MONO % 9 % (0-9); NEUT # 6.6 x10^3/uL (1.8-7.7); NEUT % 70 % (31-73); PLATELET COUNT 422 x10^3/uL (140-400); RED BLOOD COUNT 3.82 x10^6/uL (4.30-5.70); RED CELL DISTRIBUTION WIDTH 15.7 % (11.5-14.5); WHITE BLOOD COUNT 9.4 x10^3/uL (4.0-11.0)
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
[2021-01-07] MEDS: INSULIN LISPRO 300 UNITS/3 ML VIAL. SQ SCH ×3 (08:00→17:00)
[2021-01-07] MEDS: LACTOBACILLUS RHAMNOSUS GG 1 CAPSULE. PO SCH ×2 (08:49→20:37)
[2021-01-07] MEDS: MULTIVITAMIN with MINERAL TABLET. PO SCH (08:49)
--- NOTE | 2021-01-07 08:53 | PDOC ---
Infectious Disease Note Subjective: Subjective Patient without complaints Denies fever, chills, nausea, vomiting, diarrhea, abdominal pain Vital Signs: Vital Signs Vital Signs Date Time Temp Pulse Resp B/P (MAP) Pulse Ox O2 Delivery O2 Flow Rate FiO2 01/07/21 07:00 97.5 84 16 108/72 (84) 96 Room Air 97.5 01/06/21 11:01 2.0 Physical Exam: PHYSICAL EXAM GENERAL: Alert, oriented x 3 male, lying in bed comfortably, in no acute distress. HEENT: Normocephalic, atraumatic. Anicteric. NECK: Supple. No JVD. LUNGS: Clear. HEART: S1, S2. ABDOMEN: Soft, nontender.BS + Jackson removed EXTREMITIES: No edema. Right large ischial wound not examined today DERM: Warm, dry, no generalized rash except for multiple tattoos. CENTRAL NERVOUS SYSTEM: Alert, oriented, paraplegia, upper ext strength ok PSYCHIATRIC: Calm and cooperative. PICC line in place clean Medications: Inpatient Meds: Medications reviewed. Labs: Lab Laboratory Tests Test 01/06/21 11:25 01/06/21 16:53 01/06/21 21:21 01/07/21 06:15 Glucose (Fingerstick) 109 mg/dL (70-99) 98 mg/dL (70-99) 124 mg/dL (70-99) White Blood Count 9.4 x10^3/uL (4.0-11.0) Red Blood Count 3.82 x10^6/uL (4.30-5.70) Hemoglobin 10.3 g/dL (13.0-17.5) Hematocrit 32.1 % (39.0-53.0) Mean Corpuscular Volume 84 fL (79-100) Mean Corpuscular Hemoglobin 27 pg (25-35) Mean Corpuscular Hemoglobin Concent 32 g/dL (31-37) Red Cell Distribution Width 15.7 % (11.5-14.5) Platelet Count 422 x10^3/uL (140-400) Neutrophils (%) (Auto) 70 % (31-73) Lymphocytes (%) (Auto) 20 % (24-48) Monocytes (%) (Auto) 9 % (0-9) Eosinophils (%) (Auto) 2 % (0-3) Basophils (%) (Auto) 1 % (0-3) Neutrophils # (Auto) 6.6 x10^3/uL (1.8-7.7) Lymphocytes # (Auto) 1.9 x10^3/uL (1.0-4.8) Monocytes # (Auto) 0.8 x10^3/uL (0.0-1.1) Eosinophils # (Auto) 0.2 x10^3/uL (0.0-0.7) Basophils # (Auto) 0.0 x10^3/uL (0.0-0.2) Sodium Level 141 mmol/L (136-145) Potassium Level 4.1 mmol/L (3.5-5.1) Chloride Level 107 mmol/L (98-107) Carbon Dioxide Level 30 mmol/L (21-32) Anion Gap 4 (6-14) Blood Urea Nitrogen 11 mg/dL (8-26) Creatinine 0.6 mg/dL (0.7-1.3) Estimated GFR (Cockcroft-Gault) 145.7 Glucose Level 126 mg/dL (70-99) Calcium Level 8.5 mg/dL (8.5-10.1) Test 01/07/21 08:45 Glucose (Fingerstick) 124 mg/dL (70-99) Micro RUN DATE: 01/06/21 [facility] *LIVE* PAGE 1 RUN TIME: 1121 Specimen Inquiry PATIENT: TRINIDAD ORTIZ ACCT: [id number] LOC: [address] [place] [address] U: [id number] AGE/SX: 45/M ROOM: 418 RE12/29/[address]: ALEXUS MCKEON MD : 1975 BED: 1 DIS: STATUS: ADM IN TLOC: SPEC #: [id number] NIKIA: 12/31/20 STATUS: COMP REQ #: [id number] RECD: 12/31/[address]: DONNA WATKINS MD SOURCE: TISSUE ENTR: 12/31/[address]: JONATHAN SCOTT MD SPDESC: ALEXUS SUNSHINE MD, STEPHEN J MD MARCOTTE, JAROD J PA ORDERED: ANAER/MICHAEL/JONATHAN COMMENTS: Has specimen been collected/obtained? Y RIGHT ISCHIAL NECROTIC TISSUE Procedure Result ---- -------- GRAM STAIN Final Final GRAM NEGATIVE RODS:FEW GRAM POSITIVE COCCI:FEW SQUAMOUS EPI CELL:RARE PMN (WBCs):FEW Unless otherwise specified, Testing Performed by: [address] [address] For Inquires, the Physician may contact the Microbiology department at [phone] ANAEROBIC-AEROBIC CULTURE Final Final MIXED AEROBIC AND ANAEROBIC WALKER on 01/03/21 at 1348 INCLUDING: MODERATE GRAM NEGATIVE RODS on 01/02/21 at 1453 FINAL ID= [PSEUDOMONAS AERUGINOSA] FEW GRAM POSITIVE COCCI on 01/02/21 at 1454 FINAL ID= [ENTEROCOCCUS FAECALIS] MODERATE [BACTEROIDES OVATUS GROUP] MODERATE [BACTEROIDES VULGATUS GROUP] MODERATE ATOPOBIUM SPECIES FEW Mixed skin walker isolated on 01/05/21 at 1039 PSEUDOMONAS AERUGINOSA ENTEROCOCCUS FAECALIS UNIDENTIFIED ORGANISM BACTEROIDES OVATUS GROUP BACTEROIDES VULGATUS GROUP ANTIMICROBIAL SUSCEPTIBILITY Final Comment Comment CONTINUED ON NEXT PAGE RUN DATE: 01/06/21 [facility] *LIVE* PAGE 2 RUN TIME: 1121 Specimen Inquiry SPEC: [id number] PATIENT: TRINIDAD ORTIZ Vangie [id number] (Continued) Procedure Result ANTIMICROBIAL SUSCEPTIBILITY Final (continued) NEG TONY 56 PSEUDOMONAS AERUGINOSA ANTIBIOTIC RESULT INTERPRETATION AMIKACIN <=16 S AZTREONAM <=4 S CEFTAZIDIME 4 S CIPROFLOXACIN <=0.25 S CEFEPIME <=2 S CEFTAZIDIME/AVIBACTAM <=4 S GENTAMICIN <=2 S LEVOFLOXACIN <=0.5 S MEROPENEM <=1 S PIPERACILLIN/TAZOBACTAM <=8 S TOBRAMYCIN <=2 S Streptomycin Synergy Screen S Gentamicin Synergy Screen S POS TONY TYPE 38 ENTEROCOCCUS FAECALIS ANTIBIOTIC RESULT INTERPRETATION AMPICILLIN <=2 S DAPTOMYCIN 1 S LINEZOLID 2 S PENICILLIN 2 S VANCOMYCIN 2 S Unless otherwise specified, Testing Performed by: [address] [address] For Inquires, the Physician may contact the Microbiology department at [phone] Objective: Assessment: Right ischial necrotic wound -Abnormal CT -ESR greater than 100, CRP greater than 200 -Status post bedside I&D on December 31, 2020 -Swab cultures positive for Pseudomonas aeruginosa and Enterococcus faecalis Paraplegia Fever History of hernia repair Neurogenic bladder with self cath Plan: Plan of Care Patient would need surgery as antibiotics alone will not be optimal Plastics is not available at this center foe one week Gen surgery does not plan to do I and D Continue daptomycin, meropenem Offload Wound care as directed DR Pablo is trying to get him transferred to [facility] Continue supportive care Discussed with nursing staff JAVIER SCOTT MD Jan 07, 2021 08:53
--- NOTE | 2021-01-07 10:46 | NUR ---
PHIL following. Discussed with RN, PHIL attempted transfer to [facility]. Face sheet faxed per request. Awaiting acceptance decision. PHIL will continue to follow. Addendum: 01/07/21 at 1322 by AVI VILLARREAL No beds at [facility] so far today. Advised to try again after 1600.
[2021-01-07] MEDS: DAPTOmycin (GENERIC) IVPB 540 MG in IV NORMAL SALINE 50ML 50 ML IV SCH (11:34)
[2021-01-07] MEDS: ACETAMINOPHEN 325 MG TABLET. PO PRN (13:38)
[2021-01-08 03:00] VITALS: BP 126/73
[2021-01-08] MEDS: MEROPENEM 500 MG in IV NORMAL SALINE 50ML 50 ML IV SCH ×3 (05:41→17:47)
[2021-01-08] MEDS: ACETAMINOPHEN 325 MG TABLET. PO PRN (06:49)
[2021-01-08 07:00] VITALS: BP 119/75
--- NOTE | 2021-01-08 08:36 | PDOC ---
Infectious Disease Note Subjective: Subjective Patient without complaints Denies fever, chills, nausea, vomiting, diarrhea, abdominal pain Vital Signs: Vital Signs Vital Signs Date Time Temp Pulse Resp B/P (MAP) Pulse Ox O2 Delivery O2 Flow Rate FiO2 01/08/21 07:35 Room Air 01/08/21 07:00 98.1 91 18 119/75 (90 95 98.1 Physical Exam: PHYSICAL EXAM GENERAL: Alert, oriented x 3 male, lying in bed comfortably, in no acute distress. HEENT: Normocephalic, atraumatic. Anicteric. NECK: Supple. No JVD. LUNGS: Clear. HEART: S1, S2. ABDOMEN: Soft, nontender.BS + Jackson removed EXTREMITIES: No edema. Wound examined the wound team today right large ischial wound does not have any, necrotic eschar Large area of fibrinous necrotic yellowish base, no gross purulence DERM: Warm, dry, no generalized rash except for multiple tattoos. CENTRAL NERVOUS SYSTEM: Alert, oriented, paraplegia, upper ext strength ok PSYCHIATRIC: Calm and cooperative. PICC line in place clean Medications: Inpatient Meds: Medications reviewed. Labs: Lab Laboratory Tests Test 01/07/21 08:45 01/07/21 12:04 Glucose (Fingerstick) 124 mg/dL (70-99) 96 mg/dL (70-99) Micro RUN DATE: 01/06/21 [facility] LAB *LIVE* PAGE 1 RUN TIME: 1121 Specimen Inquiry PATIENT: TRINIDAD ORTIZ ACCT: [id number] LOC: [address] [place] [address] U: [id number] AGE/SX: 45/M ROOM: 418 RE12/29/[address]: ALEXUS MCKEON MD : 1975 BED: 1 DIS: STATUS: ADM IN TLOC: SPEC #: [id number] NIKIA: 12/31/20 STATUS: COMP REQ #: [id number] RECD: 12/31/[address]: DONNA WATKINS MD SOURCE: TISSUE ENTR: 12/31/20 [facility] DR: JONATHAN SCOTT MD SPDESC: MASS ALEXUS MCKEON MD, STEPHEN J MD MARCOTTE, JAROD J PA ORDERED: ANAER/MICHAEL/JONATHAN COMMENTS: Has specimen been collected/obtained? Y RIGHT ISCHIAL NECROTIC TISSUE Procedure Result GRAM STAIN Final Final GRAM NEGATIVE RODS:FEW GRAM POSITIVE COCCI:FEW SQUAMOUS EPI CELL:RARE PMN (WBCs):FEW Unless otherwise specified, Testing Performed by: [address] [address] For Inquires, the Physician may contact the Microbiology department at [phone] ANAEROBIC-AEROBIC CULTURE Final Final MIXED AEROBIC AND ANAEROBIC WALKER on 01/03/21 at 1348 INCLUDING: MODERATE GRAM NEGATIVE RODS on 01/02/21 at 1453 FINAL ID= [PSEUDOMONAS AERUGINOSA] FEW GRAM POSITIVE COCCI on 01/02/21 at 1454 FINAL ID= [ENTEROCOCCUS FAECALIS] MODERATE [BACTEROIDES OVATUS GROUP] MODERATE [BACTEROIDES VULGATUS GROUP] MODERATE ATOPOBIUM SPECIES FEW Mixed skin walker isolated on 01/05/21 at 1039 PSEUDOMONAS AERUGINOSA ENTEROCOCCUS FAECALIS UNIDENTIFIED ORGANISM BACTEROIDES OVATUS GROUP BACTEROIDES VULGATUS GROUP ANTIMICROBIAL SUSCEPTIBILITY Final Comment Comment CONTINUED ON NEXT PAGE RUN DATE: 01/06/21 [facility] LAB *LIVE* PAGE 2 RUN TIME: 1121 Specimen Inquiry SPEC: [id number] PATIENT: ORTIZTRINIDAD [id number] (Continued) Procedure Result ANTIMICROBIAL SUSCEPTIBILITY Final (continued) NEG TONY 56 PSEUDOMONAS AERUGINOSA ANTIBIOTIC RESULT INTERPRETATION AMIKACIN <=16 S AZTREONAM <=4 S CEFTAZIDIME 4 S CIPROFLOXACIN <=0.25 S CEFEPIME <=2 S CEFTAZIDIME/AVIBACTAM <=4 S GENTAMICIN <=2 S LEVOFLOXACIN <=0.5 S MEROPENEM <=1 S PIPERACILLIN/TAZOBACTAM <=8 S TOBRAMYCIN <=2 S Streptomycin Synergy Screen S Gentamicin Synergy Screen S POS TONY TYPE 38 ENTEROCOCCUS FAECALIS ANTIBIOTIC RESULT INTERPRETATION AMPICILLIN <=2 S DAPTOMYCIN 1 S LINEZOLID 2 S PENICILLIN 2 S VANCOMYCIN 2 S Unless otherwise specified, Testing Performed by: [address] [address] For Inquires, the Physician may contact the Microbiology department at [phone] Objective: Assessment: Right ischial necrotic wound -Abnormal CT -ESR greater than 100, CRP greater than 200 -Status post bedside I&D on December 31, 2020 -Swab cultures positive for Pseudomonas aeruginosa and Enterococcus faecalis Paraplegia Fever History of hernia repair Neurogenic bladder with self cath Plan: Plan of Care Patient would need surgery as antibiotics alone will not be optimal Plastics is not available at this center foe one week Gen surgery does not plan to do I and D Continue daptomycin, meropenem Offload Wound care as directed DR Pablo is trying to get him transferred to [facility] Continue supportive care Discussed with nursing staff JAVIER SCOTT MD Jan 08, 2021 08:36
[2021-01-08] MEDS: MULTIVITAMIN with MINERAL TABLET. PO SCH (08:41)
[2021-01-08] MEDS: LACTOBACILLUS RHAMNOSUS GG 1 CAPSULE. PO SCH ×2 (08:41→21:09)
[2021-01-08] MEDS: IV NORMAL SALINE 1000ML BAG 1,000 ML IV SCH ×2 (08:42→17:47)
--- NOTE | 2021-01-08 09:57 | NUR ---
SW following. Discussed with RN. PHIL attempted inpatient transfer to [facility] first thing this morning. No beds - [facility] advised to call after [address] RN and [address] Pablo notified. PHIL will continue to follow.
[2021-01-08] MEDS: DAPTOmycin (GENERIC) IVPB 540 MG in IV NORMAL SALINE 50ML 50 ML IV SCH (10:58)
[2021-01-08 11:00] VITALS: BP 124/70
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
--- NOTE | 2021-01-08 14:22 | NUR ---
Wound/Ostomy Care Wound Type/Assessment: Patient seen per wound care for follow up dressing change. Orders for Veraflo wound vac to be placed today. Wound cleansed and assessed. Dr. Duff came to assess wound as well. Patient agreeable for placement of veraflo wound vac. Treatment Recommendations/Plan: Skin prepped and and an ostomy ring placed to joshua-wound. One piece of waffle foam placed to necrotic area of wound, then two pieces of petty foam placed to wound for a total of 3 pieces of foam. A good seal maintained at 125mL, vac settings at 20mL instilled every 3 hours for a dwell time of 5 minutes. Education provided: pt educated on PU offloading, turn q2h right to left only, sitting on laying on back only for meals. Offloading surface/device: Patient currently has a purple wedge and on a P500 bed. Patient is mostly able to move independently using his upper body strength. Recommended Referrals/Tests: N/A Discharge Recommendations for dressings: Continue current treatment and wound care will see patient on Monday, hopefully patient will be able to have debridement early next week. Bed lowered and call light in reach.
[2021-01-08 15:00] VITALS: BP 116/76
[2021-01-08 19:00] VITALS: BP 108/71
[2021-01-08 23:00] VITALS: BP 132/80
[2021-01-09] MEDS: MEROPENEM 500 MG in IV NORMAL SALINE 50ML 50 ML IV SCH ×5 (00:14→23:52)
[2021-01-09 03:00] VITALS: BP 128/76
[2021-01-09 07:00] VITALS: BP 126/84
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
--- NOTE | 2021-01-09 08:32 | PDOC ---
Infectious Disease Note Subjective: Subjective Patient without complaints Denies fever, chills, nausea, vomiting, diarrhea, abdominal pain Vital Signs: Vital Signs Vital Signs Date Time Temp Pulse Resp B/P (MAP) Pulse Ox O2 Delivery O2 Flow Rate FiO2 01/09/21 03:00 98.4 79 18 128/76 (93) 94 Room Air 98.4 Physical Exam: PHYSICAL EXAM GENERAL: Alert, oriented x 3 male, lying in bed comfortably, in no acute distress. HEENT: Normocephalic, atraumatic. Anicteric. NECK: Supple. No JVD. LUNGS: Clear. HEART: S1, S2. ABDOMEN: Soft, nontender.BS + Jackson removed EXTREMITIES: No edema. Wound examined the wound team today right large ischial wound does not have any, necrotic eschar Large area of fibrinous necrotic yellowish base, no gross purulence DERM: Warm, dry, no generalized rash except for multiple tattoos. CENTRAL NERVOUS SYSTEM: Alert, oriented, paraplegia, upper ext strength ok PSYCHIATRIC: Calm and cooperative. PICC line in place clean Medications: Inpatient Meds: Medications reviewed. Labs: Micro RUN DATE: 01/06/21 [facility] LAB *LIVE* PAGE 1 RUN TIME: 1121 Specimen Inquiry PATIENT: TRINIDAD ORTIZ ACCT: [id number] LOC: [address] [place] [address] U: [id number] AGE/SX: 45/M ROOM: [facility] RE12/29/[address]: ALEXUS MCKEON MD : 1975 BED: 1 DIS: STATUS: ADM IN TLOC: SPEC #: [id number] NIKIA: 12/31/20 STATUS: COMP REQ #: [id number] RECD: 12/31/[address] [facility] DR: DONNA WATKINS MD SOURCE: TISSUE ENTR: 12/31/20 [facility] DR: JONATHAN SCOTT MD SPDC: ALEXUS SUNSHINE MD, STEPHEN J MD MARCOTTE, JAROD J PA ORDERED: ANAER/AEROB/JONATHAN COMMENTS: Has specimen been collected/obtained? Y RIGHT ISCHIAL NECROTIC TISSUE Procedure Result GRAM STAIN Final Final GRAM NEGATIVE RODS:FEW GRAM POSITIVE COCCI:FEW SQUAMOUS EPI CELL:RARE PMN (WBCs):FEW Unless otherwise specified, Testing Performed by: [address] [address] For Inquires, the Physician may contact the Microbiology department at [phone] ANAEROBIC-AEROBIC CULTURE Final Final MIXED AEROBIC AND ANAEROBIC WALKER on 01/03/21 at 1348 INCLUDING: MODERATE GRAM NEGATIVE RODS on 01/02/21 at 1453 FINAL ID= [PSEUDOMONAS AERUGINOSA] FEW GRAM POSITIVE COCCI on 01/02/21 at 1454 FINAL ID= [ENTEROCOCCUS FAECALIS] MODERATE [BACTEROIDES OVATUS GROUP] MODERATE [BACTEROIDES VULGATUS GROUP] MODERATE ATOPOBIUM SPECIES FEW Mixed skin walker isolated on 01/05/21 at 1039 PSEUDOMONAS AERUGINOSA ENTEROCOCCUS FAECALIS UNIDENTIFIED ORGANISM BACTEROIDES OVATUS GROUP BACTEROIDES VULGATUS GROUP ANTIMICROBIAL SUSCEPTIBILITY Final Comment Comment CONTINUED ON NEXT PAGE RUN DATE: 01/06/21 [facility] LAB *LIVE* PAGE 2 RUN TIME: 1121 Specimen Inquiry SPEC: [id number] PATIENT: TRINIDAD ORTIZ [id number] (Continued) Procedure Result ANTIMICROBIAL SUSCEPTIBILITY Final (continued) NEG TONY 56 PSEUDOMONAS AERUGINOSA ANTIBIOTIC RESULT INTERPRETATION AMIKACIN <=16 S AZTREONAM <=4 S CEFTAZIDIME 4 S CIPROFLOXACIN <=0.25 S CEFEPIME <=2 S CEFTAZIDIME/AVIBACTAM <=4 S GENTAMICIN <=2 S LEVOFLOXACIN <=0.5 S MEROPENEM <=1 S PIPERACILLIN/TAZOBACTAM <=8 S TOBRAMYCIN <=2 S Streptomycin Synergy Screen S Gentamicin Synergy Screen S POS TONY TYPE 38 ENTEROCOCCUS FAECALIS ANTIBIOTIC RESULT INTERPRETATION AMPICILLIN <=2 S DAPTOMYCIN 1 S LINEZOLID 2 S PENICILLIN 2 S VANCOMYCIN 2 S Unless otherwise specified, Testing Performed by: [address] [address] For Inquires, the Physician may contact the Microbiology department at [phone] Objective: Assessment: Right ischial necrotic wound -Abnormal CT -ESR greater than 100, CRP greater than 200 -Status post bedside I&D on December 31, 2020 -Swab cultures positive for Pseudomonas aeruginosa and Enterococcus faecalis Paraplegia Fever History of hernia repair Neurogenic bladder with self cath Plan: Plan of Care Continue daptomycin, meropenem Offload Wound care as directed [facility] denied transfer Awaiting I and D tomorrow by plastics Continue supportive care JAVIER SCOTT MD Jan 09, 2021 08:32
[2021-01-09] MEDS: MULTIVITAMIN with MINERAL TABLET. PO SCH (09:01)
[2021-01-09] MEDS: LACTOBACILLUS RHAMNOSUS GG 1 CAPSULE. PO SCH ×2 (09:01→21:12)
[2021-01-09] MEDS: IV NORMAL SALINE 1000ML BAG 1,000 ML IV SCH (09:02)
[2021-01-09 11:00] VITALS: BP 146/91
[2021-01-09] MEDS: DAPTOmycin (GENERIC) IVPB 540 MG in IV NORMAL SALINE 50ML 50 ML IV SCH (11:44)
[2021-01-09 15:00] VITALS: BP 123/80
[2021-01-09] MEDS: ACETAMINOPHEN 325 MG TABLET. PO PRN (17:30)
[2021-01-09 19:00] VITALS: BP 125/79
[2021-01-09 23:39] VITALS: BP 110/66
[2021-01-10] VITALS (7 sets, daily range): BP systolic 89–132; BP diastolic 46–75
[2021-01-10] MEDS: IV NORMAL SALINE 1000ML BAG 1,000 ML IV SCH ×2 (00:10→13:30)
[2021-01-10] MEDS: MEROPENEM 500 MG in IV NORMAL SALINE 50ML 50 ML IV SCH ×4 (05:21→23:55)
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
[2021-01-10] MEDS: MULTIVITAMIN with MINERAL TABLET. PO SCH (09:29)
[2021-01-10] MEDS: LACTOBACILLUS RHAMNOSUS GG 1 CAPSULE. PO SCH ×2 (09:29→21:57)
[2021-01-10] MEDS: DAPTOmycin (GENERIC) IVPB 540 MG in IV NORMAL SALINE 50ML 50 ML IV SCH (11:16)
--- NOTE | 2021-01-10 13:23 | PDOC ---
Infectious Disease Note Subjective: Subjective Patient without complaints Vital Signs: Vital Signs Vital Signs Date Time Temp Pulse Resp B/P (MAP) Pulse Ox O2 Delivery O2 Flow Rate FiO2 01/10/21 11:00 98.1 74 18 132/62 (85) 97 Room Air 98.1 Physical Exam: PHYSICAL EXAM GENERAL: Alert, oriented x 3 male, lying in bed comfortably, in no acute distress. HEENT: Normocephalic, atraumatic. Anicteric. NECK: Supple. No JVD. LUNGS: Clear. HEART: S1, S2. ABDOMEN: Soft, nontender.BS + Jackson removed EXTREMITIES: No edema. Wound examined the wound team today right large ischial wound does not have any, necrotic eschar Large area of fibrinous necrotic yellowish base, no gross purulence DERM: Warm, dry, no generalized rash except for multiple tattoos. CENTRAL NERVOUS SYSTEM: Alert, oriented, paraplegia, upper ext strength ok PSYCHIATRIC: Calm and cooperative. PICC line in place clean Medications: Inpatient Meds: Medications reviewed. Labs: Micro RUN DATE: 01/06/21 [facility] LAB *LIVE* PAGE 1 RUN TIME: 1121 Specimen Inquiry PATIENT: TRINIDAD ORTIZ ACCT: [id number] LOC: [address] [place] [address] U: [id number] AGE/SX: 45/M ROOM: [facility] RE12/29/[address]: ALEXUS MCKEON MD : 1975 BED: 1 DIS: STATUS: ADM IN TLOC: SPEC #: [id number] NIKIA: 12/31/20 STATUS: COMP REQ #: [id number] RECD: 12/31/[address] [facility] [address]: DONNA WATKINS MD SOURCE: TISSUE ENTR: 12/31/[address] [facility] [address]: JONATHAN SCOTT MD [facility]: RALF MCKEON,DIONI CHEN MD, MD, JAROD J PA ORDERED: ANAER/AEROB/GS COMMENTS: Has specimen been collected/obtained? Y RIGHT ISCHIAL NECROTIC TISSUE Procedure Result GRAM STAIN Final Final GRAM NEGATIVE RODS:FEW GRAM POSITIVE COCCI:FEW SQUAMOUS EPI CELL:RARE PMN (WBCs):FEW Unless otherwise specified, Testing Performed by: [address] [address] For Inquires, the Physician may contact the Microbiology department at [phone] ANAEROBIC-AEROBIC CULTURE Final Final MIXED AEROBIC AND ANAEROBIC WALKER on 01/03/21 at 1348 INCLUDING: MODERATE GRAM NEGATIVE RODS on 01/02/21 at 1453 FINAL ID= [PSEUDOMONAS AERUGINOSA] FEW GRAM POSITIVE COCCI on 01/02/21 at 1454 FINAL ID= [ENTEROCOCCUS FAECALIS] MODERATE [BACTEROIDES OVATUS GROUP] MODERATE [BACTEROIDES VULGATUS GROUP] MODERATE ATOPOBIUM SPECIES FEW Mixed skin walker isolated on 01/05/21 at 1039 PSEUDOMONAS AERUGINOSA ENTEROCOCCUS FAECALIS UNIDENTIFIED ORGANISM BACTEROIDES OVATUS GROUP BACTEROIDES VULGATUS GROUP ANTIMICROBIAL SUSCEPTIBILITY Final Comment Comment CONTINUED ON NEXT PAGE RUN DATE: 01/06/21 [facility] LAB *LIVE* PAGE 2 RUN TIME: 1121 Specimen Inquiry SPEC: [id number] PATIENT: TRINIDAD ORTIZ [id number] (Continued) Procedure Result ANTIMICROBIAL SUSCEPTIBILITY Final (continued) NEG TONY 56 PSEUDOMONAS AERUGINOSA ANTIBIOTIC RESULT INTERPRETATION AMIKACIN <=16 S AZTREONAM <=4 S CEFTAZIDIME 4 S CIPROFLOXACIN <=0.25 S CEFEPIME <=2 S CEFTAZIDIME/AVIBACTAM <=4 S GENTAMICIN <=2 S LEVOFLOXACIN <=0.5 S MEROPENEM <=1 S PIPERACILLIN/TAZOBACTAM <=8 S TOBRAMYCIN <=2 S Streptomycin Synergy Screen S Gentamicin Synergy Screen S POS TONY TYPE 38 ENTEROCOCCUS FAECALIS ANTIBIOTIC RESULT INTERPRETATION AMPICILLIN <=2 S DAPTOMYCIN 1 S LINEZOLID 2 S PENICILLIN 2 S VANCOMYCIN 2 S Unless otherwise specified, Testing Performed by: [address] [address] For Inquires, the Physician may contact the Microbiology department at [phone] Objective: Assessment: Right ischial necrotic wound -Abnormal CT -ESR greater than 100, CRP greater than 200 -Status post bedside I&D on December 31, 2020 -Swab cultures positive for Pseudomonas aeruginosa and Enterococcus faecalis Paraplegia Fever History of hernia repair Neurogenic bladder with self cath Plan: Plan of Care Awaiting I and D tomorrow Continue daptomycin, meropenem Offload Wound care as directed [facility] denied transfer Continue supportive care JAVIER SCOTT MD Jan 10, 2021 13:23
[2021-01-10] MEDS: ACETAMINOPHEN 325 MG TABLET. PO PRN (22:02)
[2021-01-11 03:38] VITALS: BP 85/47
[2021-01-11 04:16] LABS: BASO # 0.1 x10^3/uL (0.0-0.2); BASO % 1 % (0-3); EOS # 0.1 x10^3/uL (0.0-0.7); EOS % 1 % (0-3); HEMATOCRIT 34.2 % (39.0-53.0); HEMOGLOBIN 11.1 g/dL (13.0-17.5); LYMPH # 2.4 x10^3/uL (1.0-4.8); LYMPH % 23 % (24-48); MEAN CORPUSCULAR HEMOGLOBIN 27 pg (25-35); MEAN CORPUSCULAR HGB CONC 32 g/dL (31-37); MEAN CORPUSCULAR VOLUME 84 fL (79-100); MONO # 0.8 x10^3/uL (0.0-1.1); MONO % 8 % (0-9); NEUT # 7.1 x10^3/uL (1.8-7.7); NEUT % 67 % (31-73); PLATELET COUNT 424 x10^3/uL (140-400); RED BLOOD COUNT 4.09 x10^6/uL (4.30-5.70); RED CELL DISTRIBUTION WIDTH 16.1 % (11.5-14.5); WHITE BLOOD COUNT 10.5 x10^3/uL (4.0-11.0)
[2021-01-11 04:29] LABS: ALBUMIN 2.3 g/dL (3.4-5.0); ALBUMIN/GLOBULIN RATIO 0.5 (1.0-1.7); CREATININE 0.7 mg/dL (0.7-1.3); POTASSIUM 3.9 mmol/L (3.5-5.1); TOTAL BILIRUBIN 0.2 mg/dL (0.2-1.0); TOTAL PROTEIN 6.9 g/dL (6.4-8.2)
[2021-01-11] MEDS: IV NORMAL SALINE 1000ML BAG 1,000 ML IV SCH ×2 (05:45→17:24)
[2021-01-11] MEDS: MEROPENEM 500 MG in IV NORMAL SALINE 50ML 50 ML IV SCH ×4 (05:48→23:19)
[2021-01-11 07:00] VITALS: BP 117/61
--- NOTE | 2021-01-11 08:35 | PDOC ---
Infectious Disease Note Subjective: Subjective Patient without complaints Eagerly awaiting I&D later today Vital Signs: Vital Signs Vital Signs Date Time Temp Pulse Resp B/P (MAP) Pulse Ox O2 Delivery O2 Flow Rate FiO2 01/11/21 03:38 98.2 96 18 85/47 (60) 100 Room Air 98.2 Physical Exam: PHYSICAL EXAM GENERAL: Alert, oriented x 3 male, lying in bed comfortably, in no acute distress. HEENT: Normocephalic, atraumatic. Anicteric. NECK: Supple. No JVD. LUNGS: Clear. HEART: S1, S2. ABDOMEN: Soft, nontender.BS + Jackson removed EXTREMITIES: No edema. Wound examined the wound team today right large ischial wound does not have any, necrotic eschar Large area of fibrinous necrotic yellowish base, no gross purulence DERM: Warm, dry, no generalized rash except for multiple tattoos. CENTRAL NERVOUS SYSTEM: Alert, oriented, paraplegia, upper ext strength ok PSYCHIATRIC: Calm and cooperative. PICC line in place clean Medications: Inpatient Meds: Medications reviewed. Labs: Lab Laboratory Tests Test 01/11/21 04:00 White Blood Count 10.5 x10^3/uL (4.0-11.0) Red Blood Count 4.09 x10^6/uL (4.30-5.70) Hemoglobin 11.1 g/dL (13.0-17.5) Hematocrit 34.2 % (39.0-53.0) Mean Corpuscular Volume 84 fL (79-100) Mean Corpuscular Hemoglobin 27 pg (25-35) Mean Corpuscular Hemoglobin Concent 32 g/dL (31-37) Red Cell Distribution Width 16.1 % (11.5-14.5) Platelet Count 424 x10^3/uL (140-400) Neutrophils (%) (Auto) 67 % (31-73) Lymphocytes (%) (Auto) 23 % (24-48) Monocytes (%) (Auto) 8 % (0-9) Eosinophils (%) (Auto) 1 % (0-3) Basophils (%) (Auto) 1 % (0-3) Neutrophils # (Auto) 7.1 x10^3/uL (1.8-7.7) Lymphocytes # (Auto) 2.4 x10^3/uL (1.0-4.8) Monocytes # (Auto) 0.8 x10^3/uL (0.0-1.1) Eosinophils # (Auto) 0.1 x10^3/uL (0.0-0.7) Basophils # (Auto) 0.1 x10^3/uL (0.0-0.2) Sodium Level 140 mmol/L (136-145) Potassium Level 3.9 mmol/L (3.5-5.1) Chloride Level 104 mmol/L (98-107) Carbon Dioxide Level 31 mmol/L (21-32) Anion Gap 5 (6-14) Blood Urea Nitrogen 15 mg/dL (8-26) Creatinine 0.7 mg/dL (0.7-1.3) Estimated GFR (Cockcroft-Gault) 122.0 BUN/Creatinine Ratio 21 (6-20) Glucose Level 110 mg/dL (70-99) Calcium Level 9.0 mg/dL (8.5-10.1) Total Bilirubin 0.2 mg/dL (0.2-1.0) Aspartate Amino Transf (AST/SGOT) 33 U/L (15-37) Alanine Aminotransferase (ALT/SGPT) 56 U/L (16-63) Alkaline Phosphatase 85 U/L (46-116) Total Protein 6.9 g/dL (6.4-8.2) Albumin 2.3 g/dL (3.4-5.0) Albumin/Globulin Ratio 0.5 (1.0-1.7) Micro RUN DATE: 01/06/21 [facility] [employer] [facility] LAB *LIVE* PAGE 1 RUN TIME: 112 Specimen Inquiry PATIENT: TRINIDAD ORTIZ ACCT: [id number] LOC: [address] [place] [address] U: [id number] AGE/SX: 45/M ROOM: [facility] RE12/29/[address]: ALEXUS MCKEON MD : 1975 BED: 1 DIS: STATUS: ADM IN TLOC: SPEC #: [id number] NIKIA: 12/31/20 STATUS: COMP REQ #: [id number] RECD: 12/31/[address] [facility] [address]: DONNA WATKINS MD SOURCE: TISSUE ENTR: 12/31/[address]: JONATHAN SCOTT [facility] ALEXUS SUNSHINE MD, STEPHEN J MD MARCOTTE, JAROD J PA ORDERED: ANAER/MICHAEL/JONATHAN COMMENTS: Has specimen been collected/obtained? Y RIGHT ISCHIAL NECROTIC TISSUE Procedure Result GRAM STAIN Final Final GRAM NEGATIVE RODS:FEW GRAM POSITIVE COCCI:FEW SQUAMOUS EPI CELL:RARE PMN (WBCs):FEW Unless otherwise specified, Testing Performed by: [address] [address] For Inquires, the Physician may contact the Microbiology department at [phone] ANAEROBIC-AEROBIC CULTURE Final Final MIXED AEROBIC AND ANAEROBIC WALKER on 01/03/21 at 1348 INCLUDING: MODERATE GRAM NEGATIVE RODS on 01/02/21 at 1453 FINAL ID= [PSEUDOMONAS AERUGINOSA] FEW GRAM POSITIVE COCCI on 01/02/21 at 1454 FINAL ID= [ENTEROCOCCUS FAECALIS] MODERATE [BACTEROIDES OVATUS GROUP] MODERATE [BACTEROIDES VULGATUS GROUP] MODERATE ATOPOBIUM SPECIES FEW Mixed skin walker isolated on 01/05/21 at 1039 PSEUDOMONAS AERUGINOSA ENTEROCOCCUS FAECALIS UNIDENTIFIED ORGANISM BACTEROIDES OVATUS GROUP BACTEROIDES VULGATUS GROUP ANTIMICROBIAL SUSCEPTIBILITY Final Comment Comment CONTINUED ON NEXT PAGE RUN DATE: 01/06/21 [facility] LAB *LIVE* PAGE 2 RUN TIME: 1121 Specimen Inquiry SPEC: [id number] PATIENT: TRINIDAD ORTIZ [id number] (Continued) Procedure Result ANTIMICROBIAL SUSCEPTIBILITY Final (continued) NEG TONY 56 PSEUDOMONAS AERUGINOSA ANTIBIOTIC RESULT INTERPRETATION AMIKACIN <=16 S AZTREONAM <=4 S CEFTAZIDIME 4 S CIPROFLOXACIN <=0.25 S CEFEPIME <=2 S CEFTAZIDIME/AVIBACTAM <=4 S GENTAMICIN <=2 S LEVOFLOXACIN <=0.5 S MEROPENEM <=1 S PIPERACILLIN/TAZOBACTAM <=8 S TOBRAMYCIN <=2 S Streptomycin Synergy Screen S Gentamicin Synergy Screen S POS TONY TYPE 38 ENTEROCOCCUS FAECALIS ANTIBIOTIC RESULT INTERPRETATION AMPICILLIN <=2 S DAPTOMYCIN 1 S LINEZOLID 2 S PENICILLIN 2 S VANCOMYCIN 2 S Unless otherwise specified, Testing Performed by: [address] [address] For Inquires, the Physician may contact the Microbiology department at [phone] Objective: Assessment: Right ischial necrotic wound -Abnormal CT -ESR greater than 100, CRP greater than 200 -Status post bedside I&D on December 31, 2020 -Swab cultures positive for Pseudomonas aeruginosa and Enterococcus faecalis Paraplegia Fever History of hernia repair Neurogenic bladder with self cath Plan: Plan of Care Awaiting I and D today per plan by plastics Continue daptomycin, meropenem Monitor CK Offload Wound care as directed [facility] denied transfer Continue supportive care JAVIER SCOTT MD Jan 11, 2021 08:35
[2021-01-11] MEDS: LACTOBACILLUS RHAMNOSUS GG 1 CAPSULE. PO SCH ×2 (08:38→20:58)
[2021-01-11] MEDS: MULTIVITAMIN with MINERAL TABLET. PO SCH (08:38)
--- NOTE | 2021-01-11 10:11 | NUR ---
SW following. Discussed with RN, pt from home, room air, regular diet. Dr. Ha finding out if Dr. Leigh is back to do the I&D. Pt had wound vac which fell off yesterday. SW will continue to follow.
[2021-01-11 11:00] VITALS: BP 138/87
[2021-01-11] MEDS: DAPTOmycin (GENERIC) IVPB 540 MG in IV NORMAL SALINE 50ML 50 ML IV SCH (11:27)
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
[2021-01-11 15:00] VITALS: BP 99/61
--- NOTE | 2021-01-11 15:31 | PDOC2 ---
CONSULT Date of Consult Date of Consult DATE: 01/11/21 TIME: 15:08 Reason for Consult Reason for Consult: Right ischial ulcer Referring Physician Referring Physician: Dr. Ha Identification/Chief Complaint Chief Complaint Right ischial ulcer rapidly developing over the previous several weeks. Source Source: Chart review, Patient History of Present Illness Reason for Visit: This is a pleasant 45-year-old patient recently admitted from the wound care center for care of necrotic, infected right ischial ulcer. IV antibiotic therapy has been instituted as well as VAC infusion therapy. As part of ongoing VAC infusion therapy I presented to the bedside to evaluate efficacy and determine current slough load and perhaps raise options for disposition. Plastic surgery has been consulted and anticipating surgery, however, there appeared to be difficulties with surgical availability at this time. The patient is seen and examined in bed. Appropriate offloading surfaces have been instituted. He did report wound VAC function lost at 1800 yesterday. He has ongoing IV antibiotic therapy and meropenem is currently being infused. His vital signs are stable and he is afebrile. Patient has T4 level paraplegia and has had previous ischial ulcer in the past. Past Medical History Cardiovascular: No pertinent hx Pulmonary: No pertinent hx CENTRAL NERVOUS SYSTEM: Other (paralysis) GI: No pertinent hx Heme/Onc: No pertinent hx Hepatobiliary: No pertinent hx Psych: No pertinent hx Rheumatologic: No pertinent hx Infectious disease: No pertinent hx ENT: No pertinent hx Renal/: No pertinent hx Endocrine: No pertinent hx Dermatology: No pertinent hx Past Surgical History Past Surgical History: Hernia Repair, Other, No pertinent history Social History ALCOHOL: none Drugs: None Current Medications Current Medications Current Medications Acetaminophen (Tylenol) 650 mg PRN Q6HRS PRN PO Headaches, Temp > 101.5F Last administered on 01/10/21at 22:02; Start 12/29/20 at 21:30 Sodium Chloride 1,000 ml @ 75 mls/hr [id number] IV Last administered on 01/11/21at 05:45; Start 12/29/20 at 21:30 Piperacillin Sod/ Tazobactam Sod (Zosyn Per Pharmacy) 1 each PRN DAILY PRN MC SEE COMMENTS; Start 12/29/20 at 21:30; Status Cancel Piperacillin Sod/ Tazobactam Sod 3.375 gm/Sodium Chloride 50 ml @ 100 mls/hr Q6HRS IV ; Start 12/29/20 at 22:30; Stop 12/29/20 at 22:02; Status DC Sodium Hypochlorite (Dakin'S 1/4 Strength) 1 jacob PRN DAILY TP ; Start 12/29/20 at 22:00 Piperacillin Sod/ Tazobactam Sod 3.375 gm/Sodium Chloride 50 ml @ 100 mls/hr Q6HRS IV Last administered on 01/02/21at 05:34; Start 12/30/20 at 00:00; Stop 01/02/21 at 08:49; Status DC Daptomycin 540 mg/ Sodium Chloride 50 ml @ 100 mls/hr Q24H IV Last administered on 01/11/21at 11:27; Start 12/30/20 at 11:00 Lactobacillus Rhamnosus (Culturelle) 1 cap BID PO Last administered on 01/11/21at 08:38; Start 12/31/20 at 21:00 Multivitamins (Thera M Plus) 1 tab DAILY PO Last administered on 01/11/21at 08:38; Start 01/01/21 at 09:00 Bisacodyl (Dulcolax Supp) 10 mg PRN DAILY PRN DC CONSTIPATION Last administered on 01/04/21at 17:20; Start 01/01/21 at 11:45 Meropenem 500 mg/ Sodium Chloride 50 ml @ 100 mls/hr Q6HRS IV Last administered on 01/11/21at 12:45; Start 01/02/21 at 12:00 Insulin Human Lispro (HumaLOG) 0-7 UNITS TIDWMEALS SQ ; Start 01/05/21 at 12:00; Stop 01/08/21 at 07:36; Status DC Dextrose (Dextrose 50%-Water Syringe) 12.5 gm PRN Q15MIN PRN IV SEE COMMENTS; Start 01/05/21 at 10:45; Stop 01/08/21 at 07:36; Status DC Active Scripts Active Oxycodone-Acetaminophen 5-325 (Oxycodone Hcl/Acetaminophen) 1 Each Tablet 1 Tab PO PRN Q4HRS PRN Allergies Allergies: Coded Allergies: No Known Drug Allergies (Unverified , 01/03/18) ROS Review of System Review of systems negative except as reported below Gastrointestinal: Yes Other (Incontinence) Genitourinary: YES Incontinence Musculoskeletal: Yes Other (Paraplegic/nonambulatory) Neurological: Yes Other (Paraplegic) Physical Exam General: Alert, Oriented X3, Cooperative, No acute distress HEENT: Atraumatic, PERRLA, EOMI, Mucous membr. moist/pink Lungs: Clear to auscultation, Normal air movement Heart: Regular rate Abdomen: Soft Extremities: No clubbing, No cyanosis Skin: Other (Right ischial ulcer measuring roughly 9 cm x 8 cm and nearly 7 cm in depth. It is well into the deep muscle spaces.) Neuro: Other (Paraplegic findings) Psych/Mental Status: Mental status NL, Mood NL MUSCULOSKELETAL: Not examined Vitals VITALS Vital Signs Date Time Temp Pulse Resp B/P (MAP) Pulse Ox O2 Delivery O2 Flow Rate FiO2 01/11/21 11:00 98.4 87 18 138/87 (104) 96 Room Air 98.4 Labs Labs Laboratory Tests Test 01/11/21 04:00 White Blood Count 10.5 x10^3/uL (4.0-11.0) Red Blood Count 4.09 x10^6/uL (4.30-5.70) Hemoglobin 11.1 g/dL (13.0-17.5) Hematocrit 34.2 % (39.0-53.0) Mean Corpuscular Volume 84 fL (79-100) Mean Corpuscular Hemoglobin 27 pg (25-35) Mean Corpuscular Hemoglobin Concent 32 g/dL (31-37) Red Cell Distribution Width 16.1 % (11.5-14.5) Platelet Count 424 x10^3/uL (140-400) Neutrophils (%) (Auto) 67 % (31-73) Lymphocytes (%) (Auto) 23 % (24-48) Monocytes (%) (Auto) 8 % (0-9) Eosinophils (%) (Auto) 1 % (0-3) Basophils (%) (Auto) 1 % (0-3) Neutrophils # (Auto) 7.1 x10^3/uL (1.8-7.7) Lymphocytes # (Auto) 2.4 x10^3/uL (1.0-4.8) Monocytes # (Auto) 0.8 x10^3/uL (0.0-1.1) Eosinophils # (Auto) 0.1 x10^3/uL (0.0-0.7) Basophils # (Auto) 0.1 x10^3/uL (0.0-0.2) Sodium Level 140 mmol/L (136-145) Potassium Level 3.9 mmol/L (3.5-5.1) Chloride Level 104 mmol/L (98-107) Carbon Dioxide Level 31 mmol/L (21-32) Anion Gap 5 (6-14) Blood Urea Nitrogen 15 mg/dL (8-26) Creatinine 0.7 mg/dL (0.7-1.3) Estimated GFR (Cockcroft-Gault) 122.0 BUN/Creatinine Ratio 21 (6-20) Glucose Level 110 mg/dL (70-99) Calcium Level 9.0 mg/dL (8.5-10.1) Total Bilirubin 0.2 mg/dL (0.2-1.0) Aspartate Amino Transf (AST/SGOT) 33 U/L (15-37) Alanine Aminotransferase (ALT/SGPT) 56 U/L (16-63) Alkaline Phosphatase 85 U/L (46-116) Creatine Kinase 129 U/L (39-308) Total Protein 6.9 g/dL (6.4-8.2) Albumin 2.3 g/dL (3.4-5.0) Albumin/Globulin Ratio 0.5 (1.0-1.7) Laboratory Tests Test 01/11/21 04:00 White Blood Count 10.5 x10^3/uL (4.0-11.0) Red Blood Count 4.09 x10^6/uL (4.30-5.70) Hemoglobin 11.1 g/dL (13.0-17.5) Hematocrit 34.2 % (39.0-53.0) Mean Corpuscular Volume 84 fL (79-100) Mean Corpuscular Hemoglobin 27 pg (25-35) Mean Corpuscular Hemoglobin Concent 32 g/dL (31-37) Red Cell Distribution Width 16.1 % (11.5-14.5) Platelet Count 424 x10^3/uL (140-400) Neutrophils (%) (Auto) 67 % (31-73) Lymphocytes (%) (Auto) 23 % (24-48) Monocytes (%) (Auto) 8 % (0-9) Eosinophils (%) (Auto) 1 % (0-3) Basophils (%) (Auto) 1 % (0-3) Neutrophils # (Auto) 7.1 x10^3/uL (1.8-7.7) Lymphocytes # (Auto) 2.4 x10^3/uL (1.0-4.8) Monocytes # (Auto) 0.8 x10^3/uL (0.0-1.1) Eosinophils # (Auto) 0.1 x10^3/uL (0.0-0.7) Basophils # (Auto) 0.1 x10^3/uL (0.0-0.2) Sodium Level 140 mmol/L (136-145) Potassium Level 3.9 mmol/L (3.5-5.1) Chloride Level 104 mmol/L (98-107) Carbon Dioxide Level 31 mmol/L (21-32) Anion Gap 5 (6-14) Blood Urea Nitrogen 15 mg/dL (8-26) Creatinine 0.7 mg/dL (0.7-1.3) Estimated GFR (Cockcroft-Gault) 122.0 BUN/Creatinine Ratio 21 (6-20) Glucose Level 110 mg/dL (70-99) Calcium Level 9.0 mg/dL (8.5-10.1) Total Bilirubin 0.2 mg/dL (0.2-1.0) Aspartate Amino Transf (AST/SGOT) 33 U/L (15-37) Alanine Aminotransferase (ALT/SGPT) 56 U/L (16-63) Alkaline Phosphatase 85 U/L (46-116) Creatine Kinase 129 U/L (39-308) Total Protein 6.9 g/dL (6.4-8.2) Albumin 2.3 g/dL (3.4-5.0) Albumin/Globulin Ratio 0.5 (1.0-1.7) Images Images CT without evidence of osteomyelitis Assessment/Plan Assessment/Plan Stage IV right ischial pressure ulcer The VAC infusion therapy has been very beneficial in decreasing current slough load and necrotic tissue on the ulcer. A consideration for bedside debridement for the remaining accessible slough and this would gain an ulcer area demonstrating less than 20% slough and an opportunity for regular negative pressure wound therapy. This could provide an opportunity for outpatient manage ment with ongoing antibiotic therapy per ID until more definitive surgical care can be scheduled. The Wound Care Team will be available to facilitate follow up. Procedure: Following informed surgical consent and not requiring the use of anesthetic, the patient underwent selective debridement of necrotic tissue and slough utilizing scissors and forceps. Minimal bleeding occurred estimated at 10 cc blood loss. This was well-tolerated by the patient. At completion the ulcer appears to demonstrate 80% fat, subcutaneous tissue and muscle. It does now appear to satisfy the requirement for regular negative pressure wound therapy. This constituted a selective debridement of nonviable and necrotic tissue of roughly 30 sq. cm. TELMA PEPPER DO Jan 11, 2021 15:31
--- NOTE | 2021-01-11 16:33 | NUR ---
Wound/Ostomy Care Wound Type/Assessment: Wound care follow up, wound care team has been following up pt in outpatient and then inpatient setting for stage 4 ischium wound, see wound intervention for details. Dr. Castellanos at bedside at time of assessment, bedside debridment perform at time of visit. Wounds cleansed, pictured and measure, veraflo wound vac re-applied with settings as follow 20ml every 3hr for 5 min. Application for home wound vac submitted today. Treatment Recommendations/Plan: Left ischium: skin prepped and ostomy ring placed to joshua-wound. One piece of waffle foam placed to necrotic area of wound, then 1 coiled piece of petty foam placed to wound bed. A good seal maintained at 125mL, vac settings at 20mL instilled every 3 hours for 5 minutes. Education provided: pt educated on PU offloading, turn q2h right to left only, sitting on laying on back only for meals. Offloading surface/device: Patient currently has a purple wedge and on a P500 bed. Patient continues to turn from left to right with minimal assist, encouraged to keep offloading for wound healing. Recommended Referrals/Tests: N/A Discharge Recommendations for dressings: Continue with veraflo wound vac, application for home wound vac submitted today for possible discharge home with HH in the following days. Pt informed of POC and agreeable with plans.
[2021-01-11] MEDS: ACETAMINOPHEN 325 MG TABLET. PO PRN (17:27)
[2021-01-11 19:00] VITALS: BP 107/61
[2021-01-11 23:00] VITALS: BP 104/65
[2021-01-12 03:00] VITALS: BP 109/66
[2021-01-12] MEDS: IV NORMAL SALINE 1000ML BAG 1,000 ML IV SCH ×2 (05:54→20:34)
[2021-01-12] MEDS: MEROPENEM 500 MG in IV NORMAL SALINE 50ML 50 ML IV SCH ×4 (05:54→23:04)
[2021-01-12 07:00] VITALS: BP 121/79
--- NOTE | 2021-01-12 08:11 | PDOC ---
Infectious Disease Note Subjective: Subjective Patient without complaints Eager for discharge home today Denies fever, nausea, vomiting, shortness of breath, diarrhea, abdominal pain, rash Otherwise as above Vital Signs: Vital Signs Vital Signs Date Time Temp Pulse Resp B/P (MAP) Pulse Ox O2 Delivery O2 Flow Rate FiO2 01/12/21 07:00 98.4 83 17 121/79 (93) 96 Nasal Cannula 98.4 Physical Exam: PHYSICAL EXAM GENERAL: Alert, oriented x 3 male, lying in bed comfortably, in no acute distress. HEENT: Normocephalic, atraumatic. Anicteric. NECK: Supple. No JVD. LUNGS: Clear. HEART: S1, S2. ABDOMEN: Soft, nontender.BS + Jackson removed EXTREMITIES: No edema. Wound dressing in place not examined DERM: Warm, dry, no generalized rash except for multiple tattoos. CENTRAL NERVOUS SYSTEM: Alert, oriented, paraplegia, upper ext strength ok PSYCHIATRIC: Calm and cooperative. PICC line in place clean Medications: Inpatient Meds: Medications reviewed. Labs: Micro RUN DATE: 01/06/21 [facility] *LIVE* PAGE 1 RUN TIME: 1121 Specimen Inquiry PATIENT: TRINIDAD ORTIZ ACCT: [id number] LOC: [address] [place] [address] U: [id number] AGE/SX: 45/M ROOM: 418 RE12/29/[address]: ALEXUS MCKEON MD : [id number] BED: 1 DIS: STATUS: ADM IN TLOC: ------ ------ SPEC #: [id number] NIKIA: 12/31/20 STATUS: COMP REQ #: [id number] RECD: 12/31/[address] [facility] [address]: DONNA WATKINS MD SOURCE: TISSUE ENTR: 12/31/[address] [facility] [address]: JONATHAN SCOTT MD [facility]: RALF MCKEON,DIONI CHEN MD, MD, JAROD J PA ORDERED: ANAER/AEROB/GS COMMENTS: Has specimen been collected/obtained? Y RIGHT ISCHIAL NECROTIC TISSUE Procedure Result GRAM STAIN Final Final GRAM NEGATIVE RODS:FEW GRAM POSITIVE COCCI:FEW SQUAMOUS EPI CELL:RARE PMN (WBCs):FEW Unless otherwise specified, Testing Performed by: [address] [address] For Inquires, the Physician may contact the Microbiology department at [phone] ANAEROBIC-AEROBIC CULTURE Final Final MIXED AEROBIC AND ANAEROBIC WALKER on 01/03/21 at 1348 INCLUDING: MODERATE GRAM NEGATIVE RODS on 01/02/21 at 1453 FINAL ID= [PSEUDOMONAS AERUGINOSA] FEW GRAM POSITIVE COCCI on 01/02/21 at 1454 FINAL ID= [ENTEROCOCCUS FAECALIS] MODERATE [BACTEROIDES OVATUS GROUP] MODERATE [BACTEROIDES VULGATUS GROUP] MODERATE ATOPOBIUM SPECIES FEW Mixed skin walker isolated on 01/05/21 at 1039 PSEUDOMONAS AERUGINOSA ENTEROCOCCUS FAECALIS UNIDENTIFIED ORGANISM BACTEROIDES OVATUS GROUP BACTEROIDES VULGATUS GROUP ANTIMICROBIAL SUSCEPTIBILITY Final Comment Comment CONTINUED ON NEXT PAGE RUN DATE: 01/06/21 [facility] *LIVE* PAGE 2 RUN TIME: 1121 Specimen Inquiry SPEC: [id number] PATIENT: TRINIDAD ORTIZ [id number] (Continued) Procedure Result ANTIMICROBIAL SUSCEPTIBILITY Final (continued) NEG TONY 56 PSEUDOMONAS AERUGINOSA ANTIBIOTIC RESULT INTERPRETATION AMIKACIN <=16 S AZTREONAM <=4 S CEFTAZIDIME 4 S CIPROFLOXACIN <=0.25 S CEFEPIME <=2 S CEFTAZIDIME/AVIBACTAM <=4 S GENTAMICIN <=2 S LEVOFLOXACIN <=0.5 S MEROPENEM <=1 S PIPERACILLIN/TAZOBACTAM <=8 S TOBRAMYCIN <=2 S Streptomycin Synergy Screen S Gentamicin Synergy Screen S POS TONY TYPE 38 ENTEROCOCCUS FAECALIS ANTIBIOTIC RESULT INTERPRETATION AMPICILLIN <=2 S DAPTOMYCIN 1 S LINEZOLID 2 S PENICILLIN 2 S VANCOMYCIN 2 S Unless otherwise specified, Testing Performed by: [address] [address] For Inquires, the Physician may contact the Microbiology department at [phone] Objective: Assessment: Right ischial necrotic wound -Abnormal CT -ESR greater than 100, CRP greater than 200 -Status post bedside I&D on December 31, 2020 -Swab cultures positive for Pseudomonas aeruginosa and Enterococcus faecalis, Bacteroides -Underwent bedside debridement by wound team on 01/11/2021; no cultures available Paraplegia Fever resolved History of hernia repair Neurogenic bladder with self cath Plan: Plan of Care Patient is ready for discharge DC Daptomycin Limited choices for this patient for antibiotics Continue meropenem 1 gm IV q8 hrs Duration will be 6 weeks 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 Monday labs CBC/BUN/creatinine/CPK/ESR/CRP. Fax results to [phone] Follow-up ID clinic in 2 weeks, January 26 at 3 PM [phone] Wound/VAC care per wound team Patient would benefit for discharge to LTAC D/W Case Management D/W JAVIER Santos MD Jan 12, 2021 08:11
[2021-01-12] MEDS: LACTOBACILLUS RHAMNOSUS GG 1 CAPSULE. PO SCH ×2 (08:21→20:34)
[2021-01-12] MEDS: MULTIVITAMIN with MINERAL TABLET. PO SCH (08:21)
[2021-01-12 11:00] VITALS: BP 114/81
--- NOTE | 2021-01-12 11:31 | NUR ---
SW following. Discussed with RN, Dr. Ha wanting pt to go to a SNF facility. SW met with pt, pt agreeable and would like referral sent to [facility] - SW requested second choice - pt's second choice is to go home with home infusion and home health. SW faxed referral to [facility], awaiting acceptance decision and insurance auth. SW will continue to follow.
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
[2021-01-12 15:00] VITALS: BP 105/61
[2021-01-12 19:00] VITALS: BP 123/76
[2021-01-12] MEDS ORDERED: POLYVINYL ALCOHOL 1.4% OPHTH SOLUTION 15ML BOTTLE. OU PRN (20:45)
[2021-01-12] MEDS: ACETAMINOPHEN 325 MG TABLET. PO PRN (22:33)
[2021-01-13] MEDS: MEROPENEM 500 MG in IV NORMAL SALINE 50ML 50 ML IV SCH ×2 (06:01→12:00)
[2021-01-13 07:00] VITALS: BP 127/77
[2021-01-13] MEDS: IV NORMAL SALINE 1000ML BAG 1,000 ML IV SCH (08:16)
[2021-01-13] MEDS: MULTIVITAMIN with MINERAL TABLET. PO SCH (08:16)
[2021-01-13] MEDS: LACTOBACILLUS RHAMNOSUS GG 1 CAPSULE. PO SCH (08:16)
--- NOTE | 2021-01-13 09:27 | PDOC ---
Infectious Disease Note Subjective: Subjective Patient without complaints Denies fever, nausea, vomiting, shortness of breath, diarrhea, abdominal pain, rash Otherwise as above Vital Signs: Vital Signs Vital Signs Date Time Temp Pulse Resp B/P (MAP) Pulse Ox O2 Delivery O2 Flow Rate FiO2 01/13/21 07:00 98.0 73 17 127/77 (94) 96 Room Air 98.0 01/12/21 08:05 2.0 Physical Exam: PHYSICAL EXAM GENERAL: Alert, oriented x 3 male, lying in bed comfortably, in no acute distress. HEENT: Normocephalic, atraumatic. Anicteric. NECK: Supple. No JVD. LUNGS: Clear. HEART: S1, S2. ABDOMEN: Soft, nontender.BS + Jackson removed EXTREMITIES: No edema. Wound dressing in place not examined DERM: Warm, dry, no generalized rash except for multiple tattoos. CENTRAL NERVOUS SYSTEM: Alert, oriented, paraplegia, upper ext strength ok PSYCHIATRIC: Calm and cooperative. PICC line in place clean Medications: Inpatient Meds: Medications reviewed. Labs: Micro RUN DATE: 01/06/21 [facility] *LIVE* PAGE 1 RUN TIME: 1121 Specimen Inquiry PATIENT: TRINIDAD ORTIZ ACCT: [id number] LOC: [address] [address] U: [id number] AGE/SX: 45/M ROOM: [facility] RE12/29/[address]: ALEXUS MCKEON MD : 1975 BED: 1 DIS: STATUS: ADM IN TLOC: SPEC #: [id number] NIKIA: 12/31/20 STATUS: COMP REQ #: [id number] RECD: 12/31/[address] [facility] [address]: DONNA WATKINS MD SOURCE: TISSUE ENTR: 12/31/[address] [facility] [address]: JONATHAN SCOTT MD SPDC: RALF MCKEON,DIONI CHEN MD, MD, JAROD J PA ORDERED: ANAER/AEROB/JONATHAN COMMENTS: Has specimen been collected/obtained? Y RIGHT ISCHIAL NECROTIC TISSUE Procedure Result GRAM STAIN Final Final GRAM NEGATIVE RODS:FEW GRAM POSITIVE COCCI:FEW SQUAMOUS EPI CELL:RARE PMN (WBCs):FEW Unless otherwise specified, Testing Performed by: [address] [address] For Inquires, the Physician may contact the Microbiology department at [phone] ANAEROBIC-AEROBIC CULTURE Final Final MIXED AEROBIC AND ANAEROBIC WALKER on 01/03/21 at 1348 INCLUDING: MODERATE GRAM NEGATIVE RODS on 01/02/21 at 1453 FINAL ID= [PSEUDOMONAS AERUGINOSA] FEW GRAM POSITIVE COCCI on 01/02/21 at 1454 FINAL ID= [ENTEROCOCCUS FAECALIS] MODERATE [BACTEROIDES OVATUS GROUP] MODERATE [BACTEROIDES VULGATUS GROUP] MODERATE ATOPOBIUM SPECIES FEW Mixed skin walker isolated on 01/05/21 at 1039 PSEUDOMONAS AERUGINOSA ENTEROCOCCUS FAECALIS UNIDENTIFIED ORGANISM BACTEROIDES OVATUS GROUP BACTEROIDES VULGATUS GROUP ANTIMICROBIAL SUSCEPTIBILITY Final Comment Comment CONTINUED ON NEXT PAGE RUN DATE: 01/06/21 [facility] *LIVE* PAGE 2 RUN TIME: 1121 Specimen Inquiry SPEC: [id number] PATIENT: TRINIDAD ORTIZ [id number] (Continued) Procedure Result ANTIMICROBIAL SUSCEPTIBILITY Final (continued) NEG TONY 56 PSEUDOMONAS AERUGINOSA ANTIBIOTIC RESULT INTERPRETATION AMIKACIN <=16 S AZTREONAM <=4 S CEFTAZIDIME 4 S CIPROFLOXACIN <=0.25 S CEFEPIME <=2 S CEFTAZIDIME/AVIBACTAM <=4 S GENTAMICIN <=2 S LEVOFLOXACIN <=0.5 S MEROPENEM <=1 S PIPERACILLIN/TAZOBACTAM <=8 S TOBRAMYCIN <=2 S Streptomycin Synergy Screen S Gentamicin Synergy Screen S POS TONY TYPE 38 ENTEROCOCCUS FAECALIS ANTIBIOTIC RESULT INTERPRETATION AMPICILLIN <=2 S DAPTOMYCIN 1 S LINEZOLID 2 S PENICILLIN 2 S VANCOMYCIN 2 S Unless otherwise specified, Testing Performed by: [address] [address] For Inquires, the Physician may contact the Microbiology department at [phone] Objective: Assessment: Right ischial necrotic wound -Abnormal CT -ESR greater than 100, CRP greater than 200 -Status post bedside I&D on December 31, 2020 -Swab cultures positive for Pseudomonas aeruginosa and Enterococcus faecalis, Bacteroides -Underwent bedside debridement by wound team on 01/11/2021; no cultures available Paraplegia Fever resolved History of hernia repair Neurogenic bladder with self cath Plan: Plan of Care Patient is ready for discharge Continue meropenem 1 gm IV q 8 hrs Duration will be 6 weeks PICC director of online education and complications discussed Side effects of antibiotics discussed Probiotics Prescription in chart Social work to assist with discharge antibiotics Q. Monday labs CBC/BUN/creatinine/CPK/ESR/CRP. Fax results to [phone] Follow-up ID clinic in 2 weeks, January 26 at 3 PM [phone] Wound/VAC care per wound team Patient would benefit for discharge to LTAC; awaiting insurance approval D/W Case Management D/W JAVIER Santos MD Jan 13, 2021 09:27
--- NOTE | 2021-01-13 10:14 | NUR ---
SW following. Discussed with RN, Nikolas Whitt contacted [facility] to advise pt does not have a senior living benefit. [facility] faxed referral to [facility] for home infusion benefits. Diana Thomason RN notified. Awaiting benefits and teaching. Pt ready for discharge today. PHIL will continue to follow. Addendum: 01/13/21 at 1138 by AVI VILLARREAL Per Velvet, pt has an OOP max of $5500, had meet $1002 prior to this hospitalization. Velvet believes pt will have met the $5500 from this hospital stay, so pt would be covered at 100%. If not met then pt would be responsible for $48 per day until OOP met. [facility] discussed with pt, he is agreeable. Arsen ([place]) notified, he will arrange the teach. Pt hoping to discharge home today. RN notified.
[2021-01-13 11:00] VITALS: BP 142/81
[2021-01-13] MEDS ORDERED: MERO500V24 IV (13:04)
--- NOTE | 2021-01-13 13:06 | SNU/HH DC ---
DISCHARGE WITH HOME HEALTH DISCHARGE INFORMATION: Discharge Date: Jan 13, 2021 Condition on Discharge: Guarded CODE STATUS: Code Status: Full HOME HEALTH: Face to Face: I certify this patient is under my care and that I, or a nurse practitioner or physician's sound assistant working with me, had a face to face encounter that meets the physician face to face encounter requirements with this patient on []. Medical Complications: Other (Buttock wound infection) RN For Eval/Treatment: Yes Physical Therapy For: Evalulation/Treatment Occupational Therapy For: Evaluation/Treatment Home Health Aide For: Self-care Pt Meets Homebound Status: Unable to negotiate home POST DISCHARGE ORDERS: Activity Instructions for Disc: Activity as tolerated Weight Bearing Status after Di: As tolerated Bathing Instructions: Shower-keep dressing dry DIET AFTER DISCHARGE: Cardiac Wound/Incision Care: Other, see below CHECKS AFTER DISCHARGE: Checks after discharge: Check blood press - daily, Check your Temp as needed, Weigh Yourself Daily FOLLOW-UP: Follow up with: PCP within 2 weeks of discharge Follow Up With: Wound care and also plastic surgery Dr. Plata DC TO [facility] LABS: CBC, CMP TREATMENT/EQUIPMENT ORDERS: Infusion Equipment, home use: IV Line, PICC Line (Patient will be IV meropenem for the next 6 weeks) CERTIFICATION STATEMENT: Certification Statement: Certification Statement: Based on the above finding, I certify that this patient is confined to the home and needs intermittent senior care care, physical therapy and/or speech therapy, or continues to need occupational therapy.~ This patient is under my care, and I have initiated the establishment of the plan of care.~ This patient will be followed by myself or a community physician who will periodically review the plan of care. Home Meds Active Scripts Meropenem (MEROPENEM) 500 Mg Vial, 500 MG IV Q8HRS for wound infection for 42 Days, #126 EACH Prov:EVERETTE LOMBARDO MD 01/13/21 Discontinued Scripts Oxycodone Hcl/Acetaminophen (OXYCODONE-ACETAMINOPHEN 5-325) 1 Each Tablet, 1 TAB PO PRN Q4HRS PRN for SEVERE PAIN, #10 TAB Prov:KATHERINE MENDOZA MD 01/04/18 EVERETTE LOMBARDO MD Jan 13, 2021 13:06
--- NOTE | 2021-01-13 13:52 | RAD ---
January 06, 2021 Exam: 1.Fluoroscopic and ultrasound guided peripheral central venous catheter placement. 2. Balloon angioplasty of a brachial and axillary veins Indication: Consent: The procedure was explained in its entirety to the patient or the patients designated repres entative by a member of the treatment team, including a discussion of the risks, benefits and commonl y accepted alternatives to the procedure, as well as the expected consequences of no therapy whatsoev er. Discussion of the risks included, but was not limited to, those that are most frequent and thos e that are rare but possibly severe or life-threatening, as well as the possibility of unforeseen com plications. Discussion: A timeout procedure was performed. The patient was prepped and draped using maximum sterile techniq ue, including the use of: Current guideline approved cutaneous antisepsis, a large sterile sheet to e stablish a sterile field. Additionally the bench boring machine operator wore a hat, mask, sterile gloves, a sterile gown during the procedure as well as practiced acceptable hand hygiene prior to placing the line. 1% lidoc hoa was administered for local anesthesia. Ultrasound evaluation demonstrates a patent right basilic vein. Reference images were saved in the m edical record. The selected vein was accessed using micropuncture technique. A guidewire was advanced centrally. The PICC line was cut to length, and advanced through a peel-away sheath, but would not traverse the junction of the brachial and axillary veins. Balloon angioplasty was performed up to 3 m m. Catheter that is advanced which the its tip at the cavoatrial junction. The catheter was found to flush and aspirate normally.. Sterile dressings were applied. No immediate complications were identi fied. Fluoroscopy time: 2.3 minutes Dose area product: 8 Gycm2 Impression: 1. Balloon angioplasty of the right brachial and axillary veins 2. Successful placement of a right upper extremity PICC line Electronically signed by: Heber Hutchins MD (01/13/2021 1:50 PM) [id number]
[2021-01-13] MEDS: ACETAMINOPHEN 325 MG TABLET. PO PRN (14:17)
[2021-01-13 15:00] VITALS: BP 126/88
--- NOTE | 2021-01-13 16:27 | NUR ---
Wound Care Wound Type/Assessment: Wound care follow up, wound care team has been following up pt in outpatient and then inpatient setting for stage 4 right ischium wound, see wound intervention for details. Wound vac dressing removed, Wound cleansed, measured, pictured and NPWT @ 125mmHG continous applied at this time, 1 piece of white foam and 1 piece of petty foam applied to wound bed, the wound vac was bridged to the right thigh. a good seal was obtained at this time. Treatment Recommendations/Plan: Right ischium- cleanse the wound, apply skin prep to the joshua-wound then apply an ostomy ring to the joshua-wound then 1 piece of white foam to the depth of the wound and 1 piece of petty foam in the wound bed, the vac was bridged to the right thigh, change 3 times a week. Education provided: pt educated on PU offloading, turn q2h right to left only, sitting on laying on back only for meals. patient educated about the home vac and a follow up in the wound clinic. Offloading surface/device: Patient currently has a purple wedge and on a P500 bed. Patient continues to turn from left to right with minimal assist, encouraged to keep offloading for wound healing. Recommended Referrals/Tests: N/A Discharge Recommendations for dressings: Continue with wound vac, dressing changes 3 times a week. Home Health to do dressing changes on Mondays and Fridays. Hallie to follow up in the wound clinic on Monday.
--- NOTE | 2021-01-13 17:56 | NUR ---
Pt was given discharge instructions and follow up information and informed of new prescriptions. Pt's PICC line dressing was changed. PICC line has good blood return and flushes well. Patient will be returning home with home health services and infusion services. Pt is A&Ox4, stable. SW communicated with Diana HARPER, patient was trained on infusion. Pt left with all his belongings at [address] [facility] via his wheelchair to his vehicle. Wound care to follow up with patient. Follow up appointment already made for january 26 with infectious disease
== END 2021-01-13 18:00 | disposition home health service (06) | DRG 571 ==
LOC: 4 NORTH 17:53
PROVIDERS: ADMIT Family Medicine; ATTEND Family Medicine
PROC: 0JB90ZZ Excision of Buttock Subcutaneous Tissue and Fascia, Open Approach (ICD-10-PCS; principal; 2020-12-31)
PROC: 03773ZZ Dilation of Right Brachial Artery, Percutaneous Approach (ICD-10-PCS; 2021-01-06)
PROC: 02HV33Z Insertion of Infusion Device into Superior Vena Cava, Percutaneous Approach (ICD-10-PCS; 2021-01-06)
PROC: B5181ZA Fluoroscopy of Superior Vena Cava using Low Osmolar Contrast, Guidance (ICD-10-PCS; 2021-01-06)
PROC: B548ZZA Ultrasonography of Superior Vena Cava, Guidance (ICD-10-PCS; 2021-01-06)
DX: L89.314 Pressure ulcer of right buttock, stage 4 (principal); G82.20 Paraplegia, unspecified; K86.1 Other chronic pancreatitis; M86.9 Osteomyelitis, unspecified; E11.69 Type 2 diabetes mellitus with other specified complication; G89.29 Other chronic pain; I10 Essential (primary) hypertension; M16.0 Bilateral primary osteoarthritis of hip; N31.9 Neuromuscular dysfunction of bladder, unspecified; Z83.3 Family history of diabetes mellitus; Z87.01 Personal history of pneumonia (recurrent); Z20.822 Contact with and (suspected) exposure to COVID-19
CPT/HCPCS: 36415; 36569; 36573; 37248; 72192; 77001; 80048; 80053; 81001; 82550; 82962; 85007; 85025; 85610; 85651; 86140; 87040; 87071; 87075; 87076; 87077; 87102; 87186; 87426; C1725; C1751; C1892; J0878; J1815; J2185; J2543; J7030; U0003; U0005; G0378

== ENCOUNTER → 2020-12-29 | Outpatient (CLI) | payer BC ==
[2018-01-04 07:00] VITALS: BP 112/63
[~2020-12-29] MED LIST: MERO500V24 IV; OXYC1TAB7 PO
== END ==
LOC: SPEC 14:42
PROVIDERS: ATTEND Emergency Medicine Undersea and Hyperbaric Medicine
DX: L89.314 Pressure ulcer of right buttock, stage 4 (principal)
CPT/HCPCS: 87071; 87075; 87076; 87077; 87186

== ENCOUNTER 2021-03-17 16:56 | Inpatient (IN) | payer BC ==
[~2021-03-17] VITALS: Ht 171.4 cm; Wt 120.0 kg
[~2021-03-17 16:56] MED LIST changes: +MERO500V24 IV
--- NOTE | 2021-03-17 17:30 | NUR ---
Pt directly admitted from clinic today. Pt arrived via his personal wheelchair. Admission questions and assessment completed. Home medication list updated via AUG. Per patient, the wound care team removed his wound vac today and packed his gluteal abscess. The wound care team will come see patient tomorrow (03/18) to assess and redress the wound. Pt states he is a "hard stick" and that nursing staff always have trouble starting PIV. Pt recently had PICC line discontinued after completion of IV antibiotics at home. This RN assessed both arms for possible IV placement, no obvious sites noted. Charge nurse Dee notified. She will attempt to start IV before shift change. Will continue to monitor.
[2021-03-17] MEDS ORDERED: TORS10TA3 PO (17:38)
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
[2021-03-17] MEDS ORDERED: ONDANSETRON PF 4 MG/2 ML VIAL. IVP PRN (18:00)
[2021-03-17] MEDS ORDERED: traMADol 50 MG TABLET PO PRN (18:00)
[2021-03-17] MEDS ORDERED: guaiFENesin DM 200MG/20MG 10 ML SYRUP PO PRN (18:00)
[2021-03-17] MEDS ORDERED: IV RINGERS,LACTATED 1000ML 1,000 ML IV SCH (18:00)
[2021-03-17 18:02] VITALS: BP 125/66
[2021-03-17] MEDS ORDERED: TORSEMIDE 20 MG TABLET. PO SCH (18:30)
[2021-03-17 18:55] LABS: BASO # 0.1 x10^3/uL (0.0-0.2); BASO % 1 % (0-3); EOS # 0.1 x10^3/uL (0.0-0.7); EOS % 1 % (0-3); HEMATOCRIT 32.2 % (39.0-53.0); HEMOGLOBIN 10.4 g/dL (13.0-17.5); LYMPH # 1.8 x10^3/uL (1.0-4.8); LYMPH % 12 % (24-48); MEAN CORPUSCULAR HEMOGLOBIN 26 pg (25-35); MEAN CORPUSCULAR HGB CONC 32 g/dL (31-37); MEAN CORPUSCULAR VOLUME 81 fL (79-100); MONO % 7 % (0-9); NEUT # 12.1 x10^3/uL (1.8-7.7); NEUT % 80 % (31-73); PLATELET COUNT 611 x10^3/uL (140-400); RED CELL DISTRIBUTION WIDTH 15.9 % (11.5-14.5); WHITE BLOOD COUNT 15.2 x10^3/uL (4.0-11.0)
[2021-03-17 19:18] LABS: ALBUMIN 2.6 g/dL (3.4-5.0); ALBUMIN/GLOBULIN RATIO 0.4 (1.0-1.7); C-REACTIVE PROTEIN 191.2 mg/L (0-3.3); CREATININE 1.2 mg/dL (0.7-1.3); GFR 65.5; POTASSIUM 3.9 mmol/L (3.5-5.1); TOTAL BILIRUBIN 0.6 mg/dL (0.2-1.0); TOTAL PROTEIN 8.6 g/dL (6.4-8.2)
[2021-03-17 19:32] VITALS: BP 116/68
[2021-03-17 19:57] LABS: BILIRUBIN,URINE NEGATIVE (NEG); CLARITY,URINE CLEAR; COLOR,URINE YELLOW; NITRITE,URINE POSITIVE (NEG); PROTEIN,URINE 30 mg/dL (NEG-TRACE)
[2021-03-17 20:04] LABS: BACTERIA,URINE MANY /HPF (0-FEW); RBC,URINE OCC /HPF (0-2)
[2021-03-17 20:10] VITALS: BP 113/46
[2021-03-17] MEDS: ACETAMINOPHEN 325 MG TABLET. PO PRN (20:11)
[2021-03-17] MEDS: HEPARIN for SUB-Q USE 5,000 UNIT/ML VIAL. SQ SCH (20:22)
[2021-03-17] MEDS ORDERED: CEFEPIME HCL IV Push 2 GM VIAL. IVP ONE (22:30)
[2021-03-17 23:19] VITALS: BP 94/53
[2021-03-18 03:24] VITALS: BP 93/55
[2021-03-18 07:00] VITALS: BP 90/54
[2021-03-18] MEDS ORDERED: IV NORMAL SALINE 1000ML BAG 1,000 ML IV ONE (07:00)
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
[2021-03-18] MEDS: CEFEPIME HCL IV Push 2 GM VIAL. IVP SCH ×3 (07:30→22:46)
[2021-03-18] MEDS: ACETAMINOPHEN 325 MG TABLET. PO PRN ×2 (08:18→22:54)
[2021-03-18 08:28] LABS: BASO % 0 % (0-3); EOS # 0.1 x10^3/uL (0.0-0.7); EOS % 1 % (0-3); HEMOGLOBIN 8.9 g/dL (13.0-17.5); LYMPH # 1.4 x10^3/uL (1.0-4.8); LYMPH % 15 % (24-48); MEAN CORPUSCULAR HEMOGLOBIN 27 pg (25-35); MEAN CORPUSCULAR HGB CONC 33 g/dL (31-37); MEAN CORPUSCULAR VOLUME 81 fL (79-100); MONO % 10 % (0-9); NEUT # 7.3 x10^3/uL (1.8-7.7); NEUT % 74 % (31-73); PLATELET COUNT 457 x10^3/uL (140-400); RED BLOOD COUNT 3.34 x10^6/uL (4.30-5.70); RED CELL DISTRIBUTION WIDTH 15.8 % (11.5-14.5); WHITE BLOOD COUNT 9.8 x10^3/uL (4.0-11.0)
[2021-03-18] MEDS: HEPARIN for SUB-Q USE 5,000 UNIT/ML VIAL. SQ SCH ×2 (08:44→22:47)
[2021-03-18 08:45] LABS: CALCIUM 8.4 mg/dL (8.5-10.1); CREATININE 0.8 mg/dL (0.7-1.3); GFR 104.5; POTASSIUM 3.7 mmol/L (3.5-5.1)
[2021-03-18 11:00] VITALS: BP 98/56
--- NOTE | 2021-03-18 11:16 | NUR ---
SW following. Discussed with RN, pt from home, room air, regular diet, COVID-19 negative. Pt takes care of himself and had a wound vac at home whilst following at the wound clinic. Pt currently on IV abx, wound care following and will place the wound vac again with manohar. SW will continue to follow.
--- NOTE | 2021-03-18 13:02 | CONS ---
DATE OF CONSULTATION: 03/18/2021 REFERRING PHYSICIAN: Herrera Pablo MD REASON FOR CONSULTATION: Fever, nonhealing gluteal wound, UTI. HISTORY OF PRESENT ILLNESS: A 45-year-old male with history of paraplegia and with a large right gluteal pressure ulcer, who was recently treated with antibiotics, which he completed about 2 weeks ago. The patient had his wound VAC removed and had dressing change and packing done. He had fevers, nausea, vomiting, generalized body ache. He was tachycardic in the clinic. Wound clinic was concerned that his wound looked worse with odor. The patient had leukocytosis of 15K, fever of 100.6. The patient had pyuria. SARS-COVID was done, which is negative. The patient was started on cefepime. ID consultation was requested for antibiotic management. Today, the patient feels better. He does not have any nausea, vomiting, headache, sore throat, shortness of breath, cough, symptoms. The patient said his sister and nephew had similar symptoms. Nobody was diagnosed with COVID. They all got better. He also took some vitamin D, which may have attributed to some nausea. PAST MEDICAL HISTORY: Paraplegia, decubitus ulcer, infected, status post I and D, treated for more than 6 weeks of IV antibiotics. PAST SURGICAL HISTORY: Hernia repair, I and D as above. FAMILY HISTORY: As per HPI. SOCIAL HISTORY: No smoking, ETOH, or illicit drug use. Lives with at home. Works from home. CURRENT MEDICATIONS: Cefepime. Other medications reviewed in medication list. ALLERGIES: No known drug allergies. REVIEW OF SYSTEMS: Negative except for above in HPI. PHYSICAL EXAMINATION: VITAL SIGNS: Temperature 98.6, T-max 100.6, pulse 94, respiratory rate 18, blood pressure 90/54, oxygen saturation 95% on room air. GENERAL: Alert, oriented x 3 male, lying in bed comfortably, in no acute distress. HEENT: Normocephalic, atraumatic. Anicteric. No thrush. NECK: Supple, no JVD. LUNGS: Clear bilaterally. No wheezing. HEART: S1, S2. No gallops or murmurs. ABDOMEN: Soft, nontender, nondistended, no rebound, no guarding. GENITOURINARY: Large right gluteal wound, deep with some odor, large area of fibrinous necrotic yellow base. No Jackson. DERMATOLOGIC: Warm, dry, no generalized rash. CENTRAL NERVOUS SYSTEM: Alert, oriented, paraplegic, upper extremity strength okay. PSYCHIATRIC: Calm and cooperative. PIV looks okay. LABORATORY DATA: WBC was 15.2, now 9.8, hemoglobin 8.9, hematocrit 27, platelets 457. Sodium 138, potassium 3.7, chloride 101, bicarbonate 30, BUN 13, creatinine 0.8, glucose 103, calcium 8.4. UA: Moderate leukocyte esterase, 11-20 WBCs. SARS-COVID negative. MICRO: Pending. IMAGING: None. IMPRESSION: 1. Fever. 2. Leukocytosis. 3. Urinary tract infection. 4. Large right gluteal decubitus pressure ulcers.Completed IV antibiotic therapy recentlly. Has been evaluated by plastic surgery for possible flap which patient wants to hold off at this time. 5. Nausea. Patient attributes it to vitamin D. 6. Paraplegia. RECOMMENDATIONS: 1. Continue cefepime. 2. Follow up labs and cultures. 3. Wound team to evaluate the wound. 4. Offload. 5. Continue supportive care. 6. Continue wound care as directed. Thank you, Dr. Pablo, for consulting Infectious Disease to participate in this patient's care. If you have any questions, do not hesitate to contact me. AUGUSTO ALFREDO: Shayan TID: [id number] MTDD
[2021-03-18 13:06] LABS: INFLUENZA A PATIENT NEGATIVE (NEGATIVE); INFLUENZA B PATIENT NEGATIVE (NEGATIVE)
[2021-03-18 15:00] VITALS: BP 105/65
[2021-03-18] MEDS: SODIUM HYPOCHLORITE 0.125% 473 ML BOTTLE. TP SCH (16:15)
--- NOTE | 2021-03-18 17:21 | NUR ---
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 Pt was admitted to hospital yesterday after wound care visit and eval by Dr. Ortiz. Pt presented to [facility] with S&S of sepsis, increased in drainage from wound. Dr. Holt's obtained ok'd for admission from Dr. Nelson and pt says he was admitted last night. Wound appears dusky red and more sloughy today compared to yesterday, drainage also appears to have changed from serosanguineous to creamy purulent and mild order was noted today which was not present yesterday during wound care visit. Wound care orders for dakins soaked kerlix were given yesterday d/t possible infection. Wound vac was reapplied today using 3 pieces of waffle cleanse foam pack into wound with dakins veraflow until Monday and then switching to saline veraflow on Monday. Coy, RN notified of POC Treatment Recommendations/Plan: Wound care to change wound vac dressings. If wound vac alarms for more than 2 hours and unable to fix alarm then apply wet to dry dressing until wound care team is able to see pt. Wound vac settings as follow: 20cc of dakins every 3 hours for 5 mins, on Monday change cleansing solution to normal saline keeping same settings Education provided: PU healing reinforced, pt verbalized understanding Offloading surface/device: P500 bed, purple wedge, pillows Recommended Referrals/Tests: n/a at this time Discharge Recommendations for dressings: same as above, wound care team will plan to change wound vac on Monday03/22/21
[2021-03-18 19:00] VITALS: BP 100/63
[2021-03-18 23:00] VITALS: BP 101/59
[2021-03-19 01:27] LABS: HEMOGLOBIN A1C 6.2 % (4.8-5.6)
[2021-03-19 03:00] VITALS: BP 95/53
[2021-03-19] MEDS: CEFEPIME HCL IV Push 2 GM VIAL. IVP SCH (06:10)
[2021-03-19 07:00] VITALS: BP 115/77
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
--- NOTE | 2021-03-19 08:17 | PDOC ---
Infectious Disease Note Subjective: Subjective Patient without complaints T max 100.6 Denies nausea, vomiting, shortness of breath, diarrhea, abdominal pain, rash Otherwise as above Vital Signs: Vital Signs Vital Signs Date Time Temp Pulse Resp B/P (MAP) Pulse Ox O2 Delivery O2 Flow Rate FiO2 03/19/21 03:00 98.5 94 20 95/53 (67) 93 Room Air 98.5 Physical Exam: PHYSICAL EXAM GENERAL: Alert, oriented x 3 male, lying in bed comfortably, in no acute distress. HEENT: Normocephalic, atraumatic. Anicteric. No thrush. NECK: Supple, no JVD. LUNGS: Clear bilaterally. No wheezing. HEART: S1, S2. No gallops or murmurs. ABDOMEN: Soft, nontender, nondistended, no rebound, no guarding. GENITOURINARY: Large right gluteal wound, deep with some odor, large area of fibrinous necrotic yellow base. No Jackson. DERMATOLOGIC: Warm, dry, no generalized rash. CENTRAL NERVOUS SYSTEM: Alert, oriented, paraplegic, upper extremity strength okay. PSYCHIATRIC: Calm and cooperative. PIV looks okay. Medications: Inpatient Meds: Medications reviewed. Labs: Lab Laboratory Tests Test 03/18/21 12:15 Influenza Type A Antigen Negative (NEGATIVE) Influenza Type B Antigen Negative (NEGATIVE) Objective: Assessment: 1. Fever. 2. Leukocytosis. 3. Urinary tract infection. 4. Large right gluteal decubitus pressure ulcers.Completed IV antibiotic therapy recentlly. Has been evaluated by plastic surgery for possible flap which patient wants to hold off at this time. 5. Nausea. Patient attributes it to vitamin D. 6. Paraplegia. Plan: Plan of Care 1. Change cefepime to Zosyn, cultures are pending at this time 2. Follow up labs and cultures. 3. Wound team to evaluate the wound. 4. Offload. 5. Continue supportive care. 6. Continue wound care as directed. JAVIER SCOTT MD Mar 19, 2021 08:17
[2021-03-19 08:52] LABS: BASO % 0 % (0-3); EOS # 0.2 x10^3/uL (0.0-0.7); EOS % 2 % (0-3); HEMATOCRIT 29.8 % (39.0-53.0); HEMOGLOBIN 9.4 g/dL (13.0-17.5); LYMPH # 1.7 x10^3/uL (1.0-4.8); LYMPH % 18 % (24-48); MEAN CORPUSCULAR HEMOGLOBIN 26 pg (25-35); MEAN CORPUSCULAR HGB CONC 32 g/dL (31-37); MEAN CORPUSCULAR VOLUME 82 fL (79-100); MONO # 0.9 x10^3/uL (0.0-1.1); MONO % 10 % (0-9); NEUT # 6.7 x10^3/uL (1.8-7.7); NEUT % 70 % (31-73); PLATELET COUNT 521 x10^3/uL (140-400); RED BLOOD COUNT 3.63 x10^6/uL (4.30-5.70); RED CELL DISTRIBUTION WIDTH 16.1 % (11.5-14.5); WHITE BLOOD COUNT 9.5 x10^3/uL (4.0-11.0)
[2021-03-19] MEDS: SODIUM HYPOCHLORITE 0.125% 473 ML BOTTLE. TP SCH (09:00)
[2021-03-19 09:07] LABS: CALCIUM 8.6 mg/dL (8.5-10.1); CREATININE 0.8 mg/dL (0.7-1.3); GFR 104.5
[2021-03-19] MEDS: HEPARIN for SUB-Q USE 5,000 UNIT/ML VIAL. SQ SCH ×2 (09:38→21:12)
--- NOTE | 2021-03-19 09:38 | NUR ---
0900 DAKINS NOT SCANNED D/T PREVIOUS CONTAINER STLL INFUSING.
[2021-03-19 11:00] VITALS: BP 100/62
[2021-03-19] MEDS: PIPERACILLIN/TAZOBACTAM 3.375 GM in IV NORMAL SALINE 50ML 50 ML IV SCH ×2 (12:36→18:30)
--- NOTE | 2021-03-19 12:37 | NUR ---
SW following. Discussed with RN, pt from home alone, room air, regular diet. Wound vac, IV abx, cultures pending. Pt not ready to discharge. PHIL will continue to follow. Addendum: 03/19/21 at 1437 by AVI VILLARREAL Pt current with [facility].
[2021-03-19 14:41] VITALS: BP 104/63
[2021-03-19 19:00] VITALS: BP 117/65
[2021-03-19] MEDS: LACTOBACILLUS RHAMNOSUS GG 1 CAPSULE. PO SCH (21:06)
[2021-03-19] MEDS: ACETAMINOPHEN 325 MG TABLET. PO PRN (21:08)
[2021-03-19 23:00] VITALS: BP 112/60
[2021-03-20] MEDS: PIPERACILLIN/TAZOBACTAM 3.375 GM in IV NORMAL SALINE 50ML 50 ML IV SCH ×4 (00:38→18:20)
[2021-03-20 03:08] VITALS: BP 99/59
[2021-03-20 07:00] VITALS: BP 112/64
[2021-03-20 07:34] LABS: BASO % 0 % (0-3); EOS # 0.3 x10^3/uL (0.0-0.7); EOS % 3 % (0-3); HEMATOCRIT 29.4 % (39.0-53.0); HEMOGLOBIN 9.5 g/dL (13.0-17.5); LYMPH # 1.1 x10^3/uL (1.0-4.8); LYMPH % 12 % (24-48); MEAN CORPUSCULAR HEMOGLOBIN 26 pg (25-35); MEAN CORPUSCULAR HGB CONC 32 g/dL (31-37); MEAN CORPUSCULAR VOLUME 81 fL (79-100); MONO # 0.7 x10^3/uL (0.0-1.1); MONO % 7 % (0-9); NEUT # 7.5 x10^3/uL (1.8-7.7); NEUT % 78 % (31-73); PLATELET COUNT 510 x10^3/uL (140-400); RED BLOOD COUNT 3.63 x10^6/uL (4.30-5.70); RED CELL DISTRIBUTION WIDTH 16.1 % (11.5-14.5); WHITE BLOOD COUNT 9.6 x10^3/uL (4.0-11.0)
[2021-03-20 07:50] LABS: CALCIUM 8.7 mg/dL (8.5-10.1); CREATININE 0.7 mg/dL (0.7-1.3); POTASSIUM 4.1 mmol/L (3.5-5.1)
--- NOTE | 2021-03-20 08:57 | PDOC ---
Infectious Disease Note Subjective: Subjective Patient without complaints Afebrile last 24 hours Vital Signs: Vital Signs Vital Signs Date Time Temp Pulse Resp B/P (MAP) Pulse Ox O2 Delivery O2 Flow Rate FiO2 03/20/21 03:08 98.4 93 20 99/59 (72) 95 Room Air 98.4 Physical Exam: PHYSICAL EXAM GENERAL: Alert, oriented x 3 male, lying in bed comfortably, in no acute distress. HEENT: Normocephalic, atraumatic. Anicteric. No thrush. NECK: Supple, no JVD. LUNGS: Clear bilaterally. No wheezing. HEART: S1, S2. No gallops or murmurs. ABDOMEN: Soft, nontender, nondistended, no rebound, no guarding. GENITOURINARY: Large right gluteal wound, deep with some odor, large area of fibrinous necrotic yellow base. No Jackson. DERMATOLOGIC: Warm, dry, no generalized rash. CENTRAL NERVOUS SYSTEM: Alert, oriented, paraplegic, upper extremity strength okay. PSYCHIATRIC: Calm and cooperative. PIV looks okay. Medications: Inpatient Meds: Medications reviewed. Labs: Lab Laboratory Tests Test 03/20/21 06:25 White Blood Count 9.6 x10^3/uL (4.0-11.0) Red Blood Count 3.63 x10^6/uL (4.30-5.70) Hemoglobin 9.5 g/dL (13.0-17.5) Hematocrit 29.4 % (39.0-53.0) Mean Corpuscular Volume 81 fL (79-100) Mean Corpuscular Hemoglobin 26 pg (25-35) Mean Corpuscular Hemoglobin Concent 32 g/dL (31-37) Red Cell Distribution Width 16.1 % (11.5-14.5) Platelet Count 510 x10^3/uL (140-400) Neutrophils (%) (Auto) 78 % (31-73) Lymphocytes (%) (Auto) 12 % (24-48) Monocytes (%) (Auto) 7 % (0-9) Eosinophils (%) (Auto) 3 % (0-3) Basophils (%) (Auto) 0 % (0-3) Neutrophils # (Auto) 7.5 x10^3/uL (1.8-7.7) Lymphocytes # (Auto) 1.1 x10^3/uL (1.0-4.8) Monocytes # (Auto) 0.7 x10^3/uL (0.0-1.1) Eosinophils # (Auto) 0.3 x10^3/uL (0.0-0.7) Basophils # (Auto) 0.0 x10^3/uL (0.0-0.2) Sodium Level 138 mmol/L (136-145) Potassium Level 4.1 mmol/L (3.5-5.1) Chloride Level 103 mmol/L (98-107) Carbon Dioxide Level 29 mmol/L (21-32) Anion Gap 6 (6-14) Blood Urea Nitrogen 15 mg/dL (8-26) Creatinine 0.7 mg/dL (0.7-1.3) Estimated GFR (Cockcroft-Gault) 122.0 Glucose Level 121 mg/dL (70-99) Calcium Level 8.7 mg/dL (8.5-10.1) Micro RUN DATE: 03/19/21 [facility] LAB *LIVE* PAGE 1 RUN TIME: 1111 Specimen Inquiry PATIENT: TRINIDAD MADERA ACCT: [id number] LOC: [address] [place] [address] U: [id number] AGE/SX: 45/M ROOM: [facility] RE03/17/[address]: [place] WHEELER MD : 1975 BED: 1 DIS: STATUS: ADM IN TLOC: SPEC #: [id number] NIKIA: 03/17/21 STATUS: RES REQ #: [id number] RECD: 03/18/[address] [facility] [address]: [place] WHEELER MD SOURCE: ABSCESS ENTR: 03/18/[address]: JAVIER SCOTT MD [facility]: TELMA PEPPER JAROD J PA ORDERED: ANAER/AEROB/GS COMMENTS: Has specimen been collected/obtained? Y GLUTEAL ABSCESS Procedure Result GRAM STAIN Final Final GRAM POSITIVE RODS:RARE GRAM POSITIVE COCCI:MODERATE SQUAMOUS EPI CELL:RARE PMN (WBCs):NONE SEEN Unless otherwise specified, Testing Performed by: [address] [address] For Inquires, the Physician may contact the Microbiology department at [phone] ANAEROBIC-AEROBIC CULTURE Preliminary Preliminary MODERATE [STAPHYLOCOCCUS AUREUS] on 03/19/21 at 0849 FEW [PSEUDOMONAS AERUGINOSA] on 03/19/21 at 1107 STAPHYLOCOCCUS AUREUS PSEUDOMONAS AERUGINOSA Unless otherwise specified, Testing Performed by: [facility] [address] [place] [address] For Inquires, the Physician may contact the Microbiology department at [phone] Objective: Assessment: 1. Fever. 2. Leukocytosis. 3. Urinary tract infection. 4. Large right gluteal decubitus pressure ulcers.Completed IV antibiotic therapy recentlly. Has been evaluated by plastic surgery for possible flap which patient wants to hold off at this time. 5. Nausea. Patient attributes it to vitamin D. 6. Paraplegia. Plan: Plan of Care 1. Continue Zosyn, Add Zyvox. Follow-up final wound cultures 2. Follow up labs and cultures. 3. Wound care per wound team 4. Offload. 5. Continue supportive care. 6. Continue wound care as directed. JAVIER SCOTT MD Mar 20, 2021 08:57
[2021-03-20] MEDS: SODIUM HYPOCHLORITE 0.125% 473 ML BOTTLE. TP SCH (09:00)
[2021-03-20] MEDS: ACETAMINOPHEN 325 MG TABLET. PO PRN ×3 (09:23→22:46)
[2021-03-20] MEDS: LACTOBACILLUS RHAMNOSUS GG 1 CAPSULE. PO SCH ×2 (09:23→22:21)
[2021-03-20] MEDS: HEPARIN for SUB-Q USE 5,000 UNIT/ML VIAL. SQ SCH ×2 (09:30→22:32)
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
[2021-03-20 11:00] VITALS: BP 99/59
[2021-03-20] MEDS: LINEZOLID 600 MG TABLET PO SCH ×2 (12:21→22:21)
[2021-03-20 15:00] VITALS: BP 114/69
[2021-03-20 19:00] VITALS: BP 111/64
[2021-03-20 23:00] VITALS: BP 108/63
[2021-03-21] MEDS: PIPERACILLIN/TAZOBACTAM 3.375 GM in IV NORMAL SALINE 50ML 50 ML IV SCH ×2 (00:21→06:11)
[2021-03-21 03:24] VITALS: BP 108/66
[2021-03-21 07:00] VITALS: BP 107/63
[2021-03-21] MEDS: LACTOBACILLUS RHAMNOSUS GG 1 CAPSULE. PO SCH ×2 (09:09→20:59)
[2021-03-21] MEDS: LINEZOLID 600 MG TABLET PO SCH (09:09)
[2021-03-21] MEDS: HEPARIN for SUB-Q USE 5,000 UNIT/ML VIAL. SQ SCH ×2 (09:17→21:05)
--- NOTE | 2021-03-21 09:24 | PDOC ---
Infectious Disease Note Subjective: Subjective Patient without complaints Afebrile last 24 hours Vital Signs: Vital Signs Vital Signs Date Time Temp Pulse Resp B/P (MAP) Pulse Ox O2 Delivery O2 Flow Rate FiO2 03/21/21 07:00 98.2 88 24 107/63 (78) 96 Room Air 98.2 Physical Exam: PHYSICAL EXAM GENERAL: Alert, oriented x 3 male, lying in bed comfortably, in no acute distress. HEENT: Normocephalic, atraumatic. Anicteric. No thrush. NECK: Supple, no JVD. LUNGS: Clear bilaterally. No wheezing. HEART: S1, S2. No gallops or murmurs. ABDOMEN: Soft, nontender, nondistended, no rebound, no guarding. GENITOURINARY: Large right gluteal wound, deep with some odor, large area of fibrinous necrotic yellow base. No Jackson. DERMATOLOGIC: Warm, dry, no generalized rash. CENTRAL NERVOUS SYSTEM: Alert, oriented, paraplegic, upper extremity strength okay. PSYCHIATRIC: Calm and cooperative. PIV looks okay. Medications: Inpatient Meds: Medications reviewed. Labs: Micro RUN DATE: 03/21/21 [facility] LAB *LIVE* PAGE 1 RUN TIME: 912 Specimen Inquiry PATIENT: TRINIDAD MADERA ACCT: [id number] LOC: [address] [place] [address] U: [id number] AGE/SX: 45/M ROOM: [facility] RE03/17/[address]: [place] WHEELER MD : 1975 BED: 1 DIS: STATUS: ADM IN TLOC: SPEC #: [id number] NIKIA: 03/17/21 STATUS: RES REQ #: [id number] RECD: 03/18/[address]: [place] WHEELER MD SOURCE: ABSCESS ENTR: 03/18/[address]: [facility] SCOTT [facility] TELMA [facility] JAROD J PA ORDERED: ANAER/AEROB/JONATHAN COMMENTS: Has specimen been collected/obtained? Y GLUTEAL ABSCESS Procedure Result GRAM STAIN Final Final GRAM POSITIVE RODS:RARE GRAM POSITIVE COCCI:MODERATE SQUAMOUS EPI CELL:RARE PMN (WBCs):NONE SEEN Unless otherwise specified, Testing Performed by: [address] [address] For Inquires, the Physician may contact the Microbiology department at [phone] ANAEROBIC-AEROBIC CULTURE Preliminary Preliminary MODERATE [STAPHYLOCOCCUS AUREUS] on 03/19/21 at 0849 FEW [PSEUDOMONAS AERUGINOSA] on 03/19/21 at 1107 MODERATE [CORYNEBACTERIUM STRIATUM GRP] on 03/20/21 at 1205 STAPHYLOCOCCUS AUREUS PSEUDOMONAS AERUGINOSA CORYNEBACTERIUM STRIATUM GRP ANTIMICROBIAL SUSCEPTIBILITY Preliminary Comment Comment POS TONY TYPE 38 STAPHYLOCOCCUS AUREUS ANTIBIOTIC RESULT INTERPRETATION AZITHROMYCIN <=2 S CLINDAMYCIN <=0.25 S CEFOXITIN SCREEN <=4 NEG CIPROFLOXACIN <=1 S CEFTAROLINE <=0.5 S DAPTOMYCIN <=0.5 S ERYTHROMYCIN <=0.25 S GENTAMICIN <=4 S LINEZOLID 2 S RUN DATE: 03/21/21 [facility] LAB *LIVE* PAGE 2 RUN TIME: 912 Specimen Inquiry SPEC: [id number] PATIENT: TRINIDAD MADERA Vangie [id number] (Continued) Procedure Result CONTINUED ON NEXT PAGE RUN DATE: 03/21/21 [facility] LAB *LIVE* PAGE 3 RUN TIME: 09 Specimen Inquiry SPEC: [id number] PATIENT: TRINIDAD MADERA Vangie [id number] (Continued) Procedure Result ANTIMICROBIAL SUSCEPTIBILITY Preliminary (continued) LEVOFLOXACIN <=1 S OXACILLIN <=0.25 S PENICILLIN <=0.03 Jorge RIFAMPIN <=1 S TRIMETHOPRIM/SULFAMETHOXAZOLE <=0.5/9.5 S TETRACYCLINE <=4 S VANCOMYCIN 2 S NEG TONY 56 PSEUDOMONAS AERUGINOSA ANTIBIOTIC RESULT INTERPRETATION AMIKACIN <=16 S AZTREONAM >16 R CEFTAZIDIME 16 R CIPROFLOXACIN 1 R CEFEPIME 16 I CEFTAZIDIME/AVIBACTAM 16 R GENTAMICIN <=2 S LEVOFLOXACIN 4 R MEROPENEM >8 R PIPERACILLIN/TAZOBACTAM 32 S TOBRAMYCIN <=2 S Unless otherwise specified, Testing Performed by: [address] [address] For Inquires, the Physician may contact the Microbiology department at [phone] Objective: Assessment: 1. Fever. 2. Leukocytosis. 3. Urinary tract infection. 4. Large right gluteal decubitus pressure ulcers.Completed IV antibiotic therapy recentlly. Has been evaluated by plastic surgery for possible flap which patient wants to hold off at this time. 5. Nausea. Patient attributes it to vitamin D. 6. Paraplegia. Plan: Plan of Care DC Zosyn and Zyvox Patient clinical condition improved despite not receiving pathogen directed therapy MDRO Pseudomonas and cultures could be colonization Start Augmentin Hopefully he will be ready for discharge home tomorrow after wound VAC has been placed by wound team monitor labs and cultures. Wound care per wound team Offload. Continue supportive care. Pt may need flap in the future, but he wants to hold off at this time Patient to seek immediate medical attention if symptoms worsen JAVIER SCOTT MD Mar 21, 2021 09:23
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
[2021-03-21 11:00] VITALS: BP 107/70
[2021-03-21] MEDS: AMOXICILLIN/K CLAV 875/125MG TABLET. PO SCH ×2 (12:20→20:59)
[2021-03-21 15:00] VITALS: BP 120/75
[2021-03-21 19:14] VITALS: BP 111/74
[2021-03-21] MEDS: ACETAMINOPHEN 325 MG TABLET. PO PRN (21:00)
[2021-03-21 23:04] VITALS: BP 117/65
[2021-03-22 03:07] VITALS: BP 110/69
[2021-03-22 06:48] LABS: BASO % 0 % (0-3); EOS # 0.3 x10^3/uL (0.0-0.7); EOS % 4 % (0-3); HEMATOCRIT 31.5 % (39.0-53.0); LYMPH # 1.5 x10^3/uL (1.0-4.8); LYMPH % 18 % (24-48); MEAN CORPUSCULAR HEMOGLOBIN 26 pg (25-35); MEAN CORPUSCULAR HGB CONC 32 g/dL (31-37); MEAN CORPUSCULAR VOLUME 81 fL (79-100); MONO # 0.6 x10^3/uL (0.0-1.1); MONO % 8 % (0-9); NEUT # 5.9 x10^3/uL (1.8-7.7); NEUT % 70 % (31-73); PLATELET COUNT 557 x10^3/uL (140-400); RED BLOOD COUNT 3.89 x10^6/uL (4.30-5.70); RED CELL DISTRIBUTION WIDTH 15.8 % (11.5-14.5); WHITE BLOOD COUNT 8.4 x10^3/uL (4.0-11.0)
[2021-03-22 06:56] LABS: CALCIUM 8.9 mg/dL (8.5-10.1); CREATININE 0.8 mg/dL (0.7-1.3); GFR 104.5; POTASSIUM 3.9 mmol/L (3.5-5.1)
[2021-03-22 07:00] VITALS: BP 106/61
[2021-03-22] MEDS: LACTOBACILLUS RHAMNOSUS GG 1 CAPSULE. PO SCH (08:05)
[2021-03-22] MEDS: AMOXICILLIN/K CLAV 875/125MG TABLET. PO SCH (08:05)
[2021-03-22] MEDS: HEPARIN for SUB-Q USE 5,000 UNIT/ML VIAL. SQ SCH (08:10)
--- NOTE | 2021-03-22 08:30 | PDOC ---
Infectious Disease Note Subjective: Subjective Patient without complaints Afebrile last 24 hours Vital Signs: Vital Signs Vital Signs Date Time Temp Pulse Resp B/P (MAP) Pulse Ox O2 Delivery O2 Flow Rate FiO2 03/22/21 03:07 98.1 81 18 110/69 (83) 96 Room Air 98.1 Physical Exam: PHYSICAL EXAM GENERAL: Alert, oriented x 3 male, lying in bed comfortably, in no acute distress. HEENT: Normocephalic, atraumatic. Anicteric. No thrush. NECK: Supple, no JVD. LUNGS: Clear bilaterally. No wheezing. HEART: S1, S2. No gallops or murmurs. ABDOMEN: Soft, nontender, nondistended, no rebound, no guarding. GENITOURINARY: Wound VAC in place no Jackson. DERMATOLOGIC: Warm, dry, no generalized rash. CENTRAL NERVOUS SYSTEM: Alert, oriented, paraplegic, upper extremity strength okay. PSYCHIATRIC: Calm and cooperative. PIV looks okay. Medications: Inpatient Meds: Medications reviewed. Labs: Lab Laboratory Tests Test 03/22/21 05:55 White Blood Count 8.4 x10^3/uL (4.0-11.0) Red Blood Count 3.89 x10^6/uL (4.30-5.70) Hemoglobin 10.0 g/dL (13.0-17.5) Hematocrit 31.5 % (39.0-53.0) Mean Corpuscular Volume 81 fL (79-100) Mean Corpuscular Hemoglobin 26 pg (25-35) Mean Corpuscular Hemoglobin Concent 32 g/dL (31-37) Red Cell Distribution Width 15.8 % (11.5-14.5) Platelet Count 557 x10^3/uL (140-400) Neutrophils (%) (Auto) 70 % (31-73) Lymphocytes (%) (Auto) 18 % (24-48) Monocytes (%) (Auto) 8 % (0-9) Eosinophils (%) (Auto) 4 % (0-3) Basophils (%) (Auto) 0 % (0-3) Neutrophils # (Auto) 5.9 x10^3/uL (1.8-7.7) Lymphocytes # (Auto) 1.5 x10^3/uL (1.0-4.8) Monocytes # (Auto) 0.6 x10^3/uL (0.0-1.1) Eosinophils # (Auto) 0.3 x10^3/uL (0.0-0.7) Basophils # (Auto) 0.0 x10^3/uL (0.0-0.2) Sodium Level 136 mmol/L (136-145) Potassium Level 3.9 mmol/L (3.5-5.1) Chloride Level 101 mmol/L (98-107) Carbon Dioxide Level 28 mmol/L (21-32) Anion Gap 7 (6-14) Blood Urea Nitrogen 12 mg/dL (8-26) Creatinine 0.8 mg/dL (0.7-1.3) Estimated GFR (Cockcroft-Gault) 104.5 Glucose Level 107 mg/dL (70-99) Calcium Level 8.9 mg/dL (8.5-10.1) Micro RUN DATE: 03/21/21 [facility] *LIVE* PAGE 1 RUN TIME: 912 Specimen Inquiry PATIENT: TRINIDAD MADERA ACCT: [id number] LOC: [address] [place] [address] U: [id number] AGE/SX: 45/M ROOM: [facility] RE03/17/[address]: HOUSTON WHEELER MD : 1975 BED: 1 DIS: STATUS: ADM IN TLOC: SPEC #: [id number] NIKIA: 03/17/21 STATUS: RES REQ #: [id number] RECD: 03/18/21 [facility] DR: HOUSTON WHEELER MD SOURCE: ABSCESS ENTR: 03/18/[address] [facility] [address]: JAVIER SCOTT MD [facility]: TELMA PEPPER JAROD J PA ORDERED: ANAER/AEROB/JONATHAN COMMENTS: Has specimen been collected/obtained? Y GLUTEAL ABSCESS Procedure Result GRAM STAIN Final Final GRAM POSITIVE RODS:RARE GRAM POSITIVE COCCI:MODERATE SQUAMOUS EPI CELL:RARE PMN (WBCs):NONE SEEN Unless otherwise specified, Testing Performed by: [address] [address] For Inquires, the Physician may contact the Microbiology department at [phone] ANAEROBIC-AEROBIC CULTURE Preliminary Preliminary MODERATE [STAPHYLOCOCCUS AUREUS] on 03/19/21 at 0849 FEW [PSEUDOMONAS AERUGINOSA] on 03/19/21 at 1107 MODERATE [CORYNEBACTERIUM STRIATUM GRP] on 03/20/21 at 1205 STAPHYLOCOCCUS AUREUS PSEUDOMONAS AERUGINOSA CORYNEBACTERIUM STRIATUM GRP ANTIMICROBIAL SUSCEPTIBILITY Preliminary Comment Comment POS TONY TYPE 38 STAPHYLOCOCCUS AUREUS ANTIBIOTIC RESULT INTERPRETATION AZITHROMYCIN <=2 S CLINDAMYCIN <=0.25 S CEFOXITIN SCREEN <=4 NEG CIPROFLOXACIN <=1 S CEFTAROLINE <=0.5 S DAPTOMYCIN <=0.5 S ERYTHROMYCIN <=0.25 S GENTAMICIN <=4 S LINEZOLID 2 S RUN DATE: 03/21/21 [facility] *LIVE* PAGE 2 RUN TIME: 912 Specimen Inquiry SPEC: [id number] PATIENT: TRINIDAD MADERA Vangie [id number] (Continued) Procedure Result ---- -------- CONTINUED ON NEXT PAGE RUN DATE: 03/21/21 [facility] *LIVE* PAGE 3 RUN TIME: 0913 Specimen Inquiry SPEC: [id number] PATIENT: CASSYTRINIDAD [id number] (Continued) Procedure Result ANTIMICROBIAL SUSCEPTIBILITY Preliminary (continued) LEVOFLOXACIN <=1 S OXACILLIN <=0.25 S PENICILLIN <=0.03 Jorge RIFAMPIN <=1 S TRIMETHOPRIM/SULFAMETHOXAZOLE <=0.5/9.5 S TETRACYCLINE <=4 S VANCOMYCIN 2 S NEG TONY 56 PSEUDOMONAS AERUGINOSA ANTIBIOTIC RESULT INTERPRETATION AMIKACIN <=16 S AZTREONAM >16 R CEFTAZIDIME 16 R CIPROFLOXACIN 1 R CEFEPIME 16 I CEFTAZIDIME/AVIBACTAM 16 R GENTAMICIN <=2 S LEVOFLOXACIN 4 R MEROPENEM >8 R PIPERACILLIN/TAZOBACTAM 32 S TOBRAMYCIN <=2 S Unless otherwise specified, Testing Performed by: [address] [address] For Inquires, the Physician may contact the Microbiology department at [phone] Objective: Assessment: 1. Fever. 2. Leukocytosis. 3. Urinary tract infection. 4. Large right gluteal decubitus pressure ulcers.Completed IV antibiotic therapy recentlly. Has been evaluated by plastic surgery for possible flap which patient wants to hold off at this time. 5. Nausea. Patient attributes it to vitamin D. 6. Paraplegia. Plan: Plan of Care Patient clinical condition improved despite not receiving pathogen directed therapy MDRO Pseudomonas on cultures could be colonization or fecal soilage from anal canal Cont Augmentin, prescription in chart Pt still has a large wound but is clean, monitor labs and cultures. Wound care per wound team Offload. Continue supportive care. Pt may need flap in the future, but he wants to hold off at this time Patient is at risk of secondary infection due to large wound close to anal canal Patient wants to try conservative management at this time Patient to seek immediate medical attention if symptoms worsen Follow-up with PCP and wound team closely JAVIER SCOTT MD Mar 22, 2021 08:30
[2021-03-22 11:00] VITALS: BP 122/77
--- NOTE | 2021-03-22 11:16 | NUR ---
SW following. Discussed with RN, pt from home alone, room air, regular diet. Pt has [facility]. Wound vac. Possible discharge home today. SW will continue to follow.
--- NOTE | 2021-03-22 11:32 | SNU/HH DC ---
DISCHARGE WITH HOME HEALTH DISCHARGE INFORMATION: Discharge Date: Mar 22, 2021 Condition on Discharge: Stable HOME HEALTH: Face to Face: I certify this patient is under my care and that I, or a nurse practitioner or physician's health assistant working with me, had a face to face encounter that meets the physician face to face encounter requirements with this patient on []. Medical Complications: Other (Gluteal abscess status post debridement) RN For Eval/Treatment: Yes Physical Therapy For: Evalulation/Treatment Occupational Therapy For: Evaluation/Treatment Home Health Aide For: Self-care Pt Meets Homebound Status: Poor coordination w/ amb., Poor cognition, Unable to negotiate home POST DISCHARGE ORDERS: Activity Instructions for Disc: Activity as tolerated Weight Bearing Status after Di: As tolerated Bathing Instructions: Shower-keep dressing dry DIET AFTER DISCHARGE: Cardiac Wound/Incision Care: Other, see below (Wound VAC changes) CHECKS AFTER DISCHARGE: Checks after discharge: Check blood press - daily, Check your Temp as needed, Weigh Yourself Daily FOLLOW-UP: Follow up with: PCP within 2 weeks of discharge Follow Up With: Plastic surgery as needed for reconstruction DC TO SNF LABS: CBC, CMP TREATMENT/EQUIPMENT ORDERS: Adaptive Equipment Issued: Wheelchair CERTIFICATION STATEMENT: Certification Statement: Certification Statement: Based on the above finding, I certify that this patient is confined to the home and needs intermittent usp care, physical therapy and/or speech therapy, or continues to need occupational therapy.~ This patient is under my care, and I have initiated the establishment of the plan of care.~ This patient will be followed by myself or a community physician who will periodically review the plan of care. Home Meds Reported Medications Torsemide (TORSEMIDE) 10 Mg Tablet, 1 TAB PO DAILY for diuretic for 30 Days, #30 TAB 0 Refills 03/17/21 Discontinued Scripts Meropenem (MEROPENEM) 500 Mg Vial, 500 MG IV Q8HRS for wound infection for 42 Days, #126 EACH Prov:EVERETTE LOMBARDO MD 01/13/21 EVERETTE LOMBARDO MD Mar 22, 2021 11:32
--- NOTE | 2021-03-22 15:17 | NUR ---
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 Patient is well known to us from the wound clinic. Wound cleansed, assessed, measured, and pictured. Patient discharging today with Diana HARPER. Wound has improved and has new granulation tissue as well is smaller in depth. Skin prepped and ostomy ring placed to joshua-wound, 2 pieces of petty faom placed to wound bed and vac tracked up to lateral thigh with a good seal maintained at 125mmHg continuous. Patient has home vac that is charged and hooked back up too. Treatment Recommendations/Plan: Since patient is discharging patient to be placed back on home wound vac at 125mmHg continuous. Education provided: Patient to turn every 2 hours and to continue to offload as much as possible, Pt verbalized understanding. Offloading surface/device: P500 bed, purple wedge, pillows Recommended Referrals/Tests: n/a at this time Discharge Recommendations for dressings: Patient will follow up with us in the wound clinic on 03/24/21 at 11:45, patient verbalized understanding.
--- NOTE | 2021-03-22 16:23 | NUR ---
Discharge Note: Patient was discharged home with home health services. Patients IV was discontinued without any complications per RN. Patients wound vac was changed by wound care and placed on home wound vac. Patient was given discharge summary/instructions, follow-ups, prescriptions and educational material. Patient did not have any further questions or concerns. Patient was taken down ER entrance via his own wheelchair with all his personal belongings accompanied by JOSE Carpenter, where patient had his car parked and was driving himself home.
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
== END 2021-03-22 16:31 | disposition home health service (06) | DRG 872 ==
LOC: 5 NORTH 16:56
PROVIDERS: ADMIT Internal Medicine; ATTEND Internal Medicine
DX: A41.9 Sepsis, unspecified organism (principal); G82.20 Paraplegia, unspecified; N39.0 Urinary tract infection, site not specified; E11.9 Type 2 diabetes mellitus without complications; G89.29 Other chronic pain; I10 Essential (primary) hypertension; L89.319 Pressure ulcer of right buttock, unspecified stage; N31.9 Neuromuscular dysfunction of bladder, unspecified; Z20.822 Contact with and (suspected) exposure to COVID-19
CPT/HCPCS: 36415; 80048; 80053; 81001; 83036; 85025; 85610; 85651; 86140; 87040; 87071; 87075; 87076; 87077; 87086; 87186; 87804; J0692; J1644; J2543; J3490; J7030; J7120; U0003; U0005; G0378